=== PATIENT | female | born 1935 | race Caucasian/White ===

== ENCOUNTER 2016-08-03 21:04 | Inpatient (IN) | payer MEDICARE, OTHER ==
[~2016-08-03] VITALS: Ht 154.9 cm; Wt 46.3 kg
[~2016-08-03 21:04] MED LIST: /DULO30CA OR; ACET65TA OR; ADDE10CA3 PO; ALEVE PO; ASPI325T OR; CETI5TAB2 OR; CLIMARA TOP; CLIN300C OR; COQ-10 PO; DETR4CAP OR; FERR325T OR; FISH500C OR; GINKGO BILOBA PO; HEPARIN IV; LEVOFLOXACIN IV; NORCO PO; OMEP20TA7 OR; RED YEAST RICE PO; RESTASIS OU; SALINE FLUSHES IV; VICO5TAB OR; VITA C PO; VITAMIN D PO
[2016-08-03 21:38] LABS: VENOUS BASE EXCESS 2.7 (-2.0-2.0); VENOUS O2 SATURATION 81.8 % (60.0-80.0); VENOUS PARTIAL PRESSURE CO2 41.2 mmHg (38.0-50.0); VENOUS PARTIAL PRESSURE O2 46.7 mmHg (30.0-50.0); VENOUS STANDARD HCO3 26.6 MEQ/L; VENOUS TOTAL CO2 28.4 MEQ/L (24.0-28.0)
[2016-08-03 21:46] LABS: BASO % 0.2 % (0.0-1.0); EOS # 0.1 K/mm3 (0.0-0.50); EOS % 1.4 % (0.0-3.0); LARGE UNSTAINED CELL # 0.1 K/mm3 (0.0-0.4); LARGE UNSTAINED CELL % 1.6 % (0.0-4.0); LYMPH # 1.7 K/mm3 (1.5-4.5); LYMPH % 22.1 % (24.0-44.0); MEAN CORPUSCULAR HEMOGLOBIN 27.4 pg (27.0-33.0); MEAN CORPUSCULAR VOLUME 85.7 fl (80.0-96.0); MONO # 0.7 K/mm3 (0.0-0.8); MONO % 8.5 % (0.0-5.0); NEUTROPHILS # 5.2 K/mm3 (1.8-7.7); NEUTROPHILS % 66.2 % (36.0-66.0); PLATELET COUNT, AUTOMATED 228 k/mm3 (150-450); RED CELL DISTRIBUTION WIDTH 14.8 % (11.5-14.5); WHITE BLOOD COUNT 7.9 K/mm3 (4.0-10.0)
[2016-08-03] MEDS ORDERED: ATOR40TA PO (21:47)
[2016-08-03] MEDS ORDERED: BUPR150T3 PO (21:47)
[2016-08-03 22:06] LABS: ALBUMIN 3.4 GM/DL (3.2-5.2); ALBUMIN/GLOBULIN RATIO 0.94 (1.00-1.93); ALKALINE PHOSPHATASE 91 U/L (45-117); ANION GAP 7 MEQ/L (8-16); AST/SGOT 33 U/L (15-37); BILIRUBIN,DIRECT 0.1 MG/DL (0.0-0.2); BILIRUBIN,TOTAL 0.4 MG/DL (0.2-1.0); BLOOD UREA NITROGEN 16 MG/DL (7-18); CALCIUM LEVEL 8.3 MG/DL (8.8-10.2); CARBON DIOXIDE LEVEL 31 MEQ/L (21-32); CHLORIDE LEVEL 104 MEQ/L (98-107); CREATININE FOR GFR 0.53 MG/DL (0.55-1.02); GLOMERULAR FILTRATION RATE > 60.0 (>32); GLUCOSE, FASTING 85 MG/DL (83-110); POTASSIUM SERUM 3.6 MEQ/L (3.5-5.1); SODIUM LEVEL 142 MEQ/L (136-145)
[2016-08-03 22:12] LABS: ALT/SGPT 40 U/L (12-78)
--- NOTE | 2016-08-03 22:20 | REPUSA ---
CT of the head Clinical history: altered mental status. Protocol: Multiple axial CT images obtained with 5 mm slice thickness were obtained through the head without administration of contrast. Comparison: None. Findings: The ventricles and sulci are symmetric but prominent in size bilaterally. There are periven tricular areas of low attenuation throughout the deep white matter. There is no evidence of acute hem orrhage or infarct. There is no midline shift, mass effect, or extra-axial fluid collection. The osse ous structures are unremarkable. The visualized paranasal sinuses and mastoid air cells are clear. Impression: No acute hemorrhage or infarct. 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
[2016-08-03 22:30] LABS: METHADONE URINE NEGATIVE (NEGATIVE)
[2016-08-03] MEDS: NS 1,000 ML IV SCH (23:56)
[2016-08-04] MEDS ORDERED: ONDANSETRON 4 MG TAB (S0181) PO PRN
[2016-08-04] MEDS ORDERED: ONDANSETRON 4MG/2ML VIAL (J2405) IV PRN
[2016-08-04] MEDS ORDERED: FISH500C PO (00:31)
[2016-08-04] MEDS ORDERED: ADDE30CA PO (00:31)
[2016-08-04] MEDS ORDERED: OMEP20CA3 PO (00:31)
[2016-08-04] MEDS ORDERED: CETI10TA PO (00:31)
[2016-08-04] MEDS ORDERED: GINK120T2 PO (00:31)
[2016-08-04] MEDS ORDERED: DULO1CAP2 PO (00:31)
[2016-08-04] MEDS ORDERED: FERR325T PO (00:31)
[2016-08-04] MEDS ORDERED: VITA100066 PO (00:35)
[2016-08-04] MEDS ORDERED: OXYB10TA PO (00:35)
[2016-08-04] MEDS ORDERED: REST0.05 OU (00:35)
[2016-08-04] MEDS ORDERED: VITA500T88 PO (00:35)
[2016-08-04] MEDS ORDERED: RED1CAP5 PO (00:35)
[2016-08-04] MEDS ORDERED: CO Q100C10 PO (00:35)
[2016-08-04] MEDS ORDERED: ASPI81TA7 PO (00:36)
[2016-08-04 02:12] VITALS: BP 140/82
[2016-08-04] MEDS: NS 1,000 ML IV SCH ×2 (02:30→13:48)
--- NOTE | 2016-08-04 03:12 | HPEPDOC ---
Medical History and Physical Date of Admission August 04, 2016 at 00:36 History and Physical HISTORY AND PHYSICAL Date of admission: 08/04/2016 PCP: Dr. Joaquin Chief complaint: I just don't feel well HPI: 80-year-old female with history of CVA, hyperlipidemia, chronic anemia, depression who was brought to the emergency department by her neighbor. The patient evidently lives in the [facility] alone, and her and daughter live in [place]. The had been unable to reach his by phone for a couple days, so he called the neighbor and asked her to go check on her. The neighbor last saw the patient on , and at that time the patient seemed to be her normal self. When the neighbor arrived to the house, she found the patient curled up in bed and appeared to be very chilled. The patient told the neighbor that she was not feeling well and hadn't been able to get out of bed, and thus had not eaten or drinking anything, for an entire day. Workup was relatively unremarkable in the emergency department other than a hemoglobin of 9.6. The patient denies any falls, and states that she thinks she was doing well until Friday. She is unable to identify any specific complaints, but rather just says that she is exhausted. When the emergency department attempted to get her up to ambulate, she was too weak to do so. Past medical history: History of CVA, hyperlipidemia, chronic anemia, depression Past surgical history: Tonsillectomy and adenoidectomy, appendectomy Family history: The patient denies any specific medical problems in her family, she specifically denies hypertension or heart disease Social history: The patient currently lives alone in the [facility]. Her lives in an assisted living facility in [place], and her daughter also lives in [place]. The patient quit smoking approximately 30 years ago, she states she has not had any alcoholic drinks in at least one year. Prior to that , she only had very occasional alcoholic drinks. Allergies: Codeine, latex, penicillins, sulfa, tetracycline Review of systems: General: Positive for chills, negative for fever Eyes: Negative for vision changes and ocular discharge ENT: Negative for sore throat and nose bleed Cardiovascular: Negative for chest pain and palpitations Respiratory: Positive for cough, negative for shortness of breath GI: Negative for nausea, vomiting, diarrhea, constipation Musculoskeletal: Negative for neck and back pain Skin: Negative for rash Neuro: Negative for headache, dizziness, numbness, tingling Psych: Positive for depression. The patient states that she follows with a psychiatrist by the name of Dr. Wells once a month, as well as a clinical psychologist every 2 weeks. She denies any current thoughts of harming herself, but she states that she has struggled with these thoughts in the past, even as recently as one month ago Endocrine: Negative for polyuria : Negative for dysuria Heme: Negative for bruising and bleeding Home meds: See below Physical exam: Vital signs: Vital Sign - Last 24 Hours 08/03/16 08/03/16 08/03/16 08/03/16 21:31 21:39 22:04 22:19 Temp 98.8 Pulse 78 80 Resp 16 B/P (MAP) 159/72 (101) Pulse Ox 94 97 O2 Delivery Room Air Room Air 08/03/16 08/03/16 08/03/16 08/03/16 22:34 22:49 23:04 23:19 Pulse 82 82 80 82 Pulse Ox 91 92 98 97 08/03/16 08/03/16 08/04/16 08/04/16 23:34 23:49 00:04 00:19 Pulse 82 84 88 86 Pulse Ox 97 97 95 95 08/04/16 08/04/16 08/04/16 08/04/16 00:34 00:49 01:04 01:19 Pulse 88 88 88 86 Pulse Ox 98 98 98 98 Gen.: awake, alert, no acute distress Eyes: Extraocular movements intact, normal sclera ENT: Dry mucous membranes Cardiovascular: RRR, no murmurs rubs or gallops Lungs: clear to auscultation bilaterally, no rales, rhonchi, or wheeze Abdomen: Soft, NT/ND, normal BS Musculoskeletal: normal range of motion Extremities: No peripheral edema Neuro: alert and oriented 3, normal speech, no focal deficits Psych: Normal mood with congruent affect Labs and radiology: See below CMP, ABG, lactate, ammonia, troponin, TSH, urine drug screen, alcohol level are all unremarkable UA shows only 1+ blood Urine cultures and blood cultures are pending CT of the head does not show any concerns for acute findings CBC is remarkable for hemoglobin of 9.6 Assessment and plan: 80-year-old female with history of CVA, hyperlipidemia, chronic anemia, depression who was brought to the emergency department by her neighbor for extreme global weakness, inability to ambulate, and inability to get out of bed for the last day. 1. Global weakness, inability to ambulate and get out of bed for the last day: The patient has no specific complaints, and a very thorough workup is rather unrevealing. We will follow-up the patient's urine cultures, but her UA is not indicative of an infection. Given that she has been unable to get out of bed or eat or drink for an entire day, I will give her gentle IV fluids. We will also check a flu screen. I am concerned that the patient lives alone and that her nearest family is in [place]. We will have to work closely with the social workers to arrange a safe living situation. We will also have physical therapy evaluate the patient. 2. Chronic anemia: The patient states she knows she has anemia, but she is unsure what her hemoglobin usually is. She denies any blood in her stool or dark black stool. We will check iron studies as well as B12 and folate. We will continue her on home iron pills. We will recheck her hemoglobin the morning. 3. Depression: This appears to be very significant. The patient states that she does follow with the psychologist every other week and a psychiatrist once a month. She denies current suicidal ideations, but reports that this has been a struggle even as recently as one month ago. We will continue her on her home Wellbutrin and Cymbalta. She takes Adderall at home but we do not have that on formulary, so we will hold that at this time. 4. Hyperlipidemia: Given the patient's extreme global weakness, we will hold her statin. 5. History of CVA: We'll continue the patient's home aspirin. As mentioned above , given her weakness, we will hold her statin. DVT prophylaxis: SCDs Dispo: place in observation on the service of Dr. Au CODE STATUS: DNR/DNI Vital Signs Vital Signs Date Time Temp Pulse Resp B/P (MAP) Pulse Ox O2 Delivery O2 Flow Rate FiO2 08/04/16 01:19 86 98 08/03/16 22:04 08/03/16 21:39 Room Air 08/03/16 21:31 98.8 16 Laboratory Data Labs 24H Laboratory Tests 2 08/03/16 21:26: White Blood Count 7.9, Red Blood Count 3.52L, Hemoglobin 9.6L, Hematocrit 30.2L , Mean Corpuscular Volume 85.7, Mean Corpuscular Hemoglobin 27.4, Mean Corpuscular Hemoglobin Concent 32.0, Red Cell Distribution Width 14.8H, Platelet Count 228, Neutrophils (%) (Auto) 66.2H, Lymphocytes (%) (Auto) 22.1L, Monocytes (%) (Auto) 8.5H, Eosinophils (%) (Auto) 1.4, Basophils (%) (Auto) 0.2 , Neutrophils # (Auto) 5.2, Lymphocytes # (Auto) 1.7, Monocytes # (Auto) 0.7, Eosinophils # (Auto) 0.1, Basophils # (Auto) 0.0, Large Unclassified Cells % 1.6 , Large Unclassified Cells # 0.1, Blood Gas Bicarbonate Standard 26.6, Venous Blood pH 7.437H, Venous Blood Partial Pressure CO2 41.2, Venous Blood Partial Pressure O2 46.7, Venous Blood Total Carbon Dioxide 28.4H, Venous Blood HCO3 27.2H, Venous Blood Oxygen Saturation 81.8H, Venous Blood Base Excess 2.7H, Anion Gap 7L, Glomerular Filtration Rate > 60.0, Lactic Acid Level 1.1, Calcium Level 8.3L, Aspartate Amino Transf (AST/SGOT) 33, Alanine Aminotransferase (ALT/ SGPT) 40, Alkaline Phosphatase 91, Total Bilirubin 0.4, Direct Bilirubin 0.1, Ammonia 16, Total Creatine Kinase 152, Creatine Kinase MB 3.6, Creatine Kinase MB Relative Index 2.36, Troponin I < 0.02, Total Protein 7.0, Albumin 3.4, Albumin/Globulin Ratio 0.94L, Thyroid Stimulating Hormone (TSH) 0.811, Ethyl Alcohol Level < 0.003 08/03/16 21:43: Urine Appearance CLEAR, Urine Color STRAW, Urine pH 7.0, Urine Specific [place] 1.010, Urine Protein NEGATIVE, Urine Glucose (UA) NEGATIVE, Urine Ketones NEGATIVE, Urine Urobilinogen 0.2, Urine Bilirubin NEGATIVE, Urine Leukocyte Esterase NEGATIVE, Urine Blood 1+H, Urine Nitrite NEGATIVE, Urine WBC (Auto) 0, Urine RBC (Auto) 0, Urine Hyaline Casts (Auto) 0, Urine Bacteria (Auto) NEGATIVE , Urine Squamous Epithelial Cells 0, Urine Mucus (Auto) SMALL, Urine Sperm (Auto ) , Urine Amphetamines Screen NEGATIVE, Urine Benzodiazepines Screen NEGATIVE, Urine Opiates Screen NEGATIVE, Urine Methadone Screen NEGATIVE, Urine Barbiturates Screen NEGATIVE, Urine Phencyclidine Screen NEGATIVE, Urine Cocaine Metabolite Screen NEGATIVE, Urine Cannabinoids Screen NEGATIVE 08/03/16 22:00: Bedside Glucose ([facility]) 91 CBC/BMP Laboratory Tests 08/03/16 21:26 Red Blood Count 3.52 L, Mean Corpuscular Volume 85.7, Mean Corpuscular Hemoglobin 27.4, Mean Corpuscular Hemoglobin Concent 32.0, Red Cell Distribution Width 14.8 H, Neutrophils (%) (Auto) 66.2 H, Lymphocytes (%) (Auto ) 22.1 L, Monocytes (%) (Auto) 8.5 H, Eosinophils (%) (Auto) 1.4, Basophils (%) (Auto) 0.2, Neutrophils # (Auto) 5.2, Lymphocytes # (Auto) 1.7, Monocytes # ( Auto) 0.7, Eosinophils # (Auto) 0.1, Basophils # (Auto) 0.0 Microbiology Microbiology 08/03/16 Blood Culture, Received Pending 08/03/16 Blood Culture, Received Pending 08/04/16 Influenza Virus Type A Antigen - Final, Complete 08/04/16 Influenza Virus Type B Antigen - Final, Complete 08/03/16 Urine Culture, Received Pending Home Medications Scheduled (Red Yeast Rice) 300 Mg Cap, 300 MG PO DAILY (Restasis) 0.05 % Emu, 0.05 % OU BID Amphetamine/Dextroamphetamine (Adderall Xr 30 mg) 1 Cap Cap, 1 CAP PO DAILY Ascorbic Acid (Vitamin C) 500 Mg Tab, 500 MG PO DAILY Aspirin (Aspirin) 81 Mg Tab, 81 MG PO DAILY Atorvastatin Calcium (Atorvastatin Calcium) 40 Mg Tab, 40 MG PO DAILY Bupropion Hcl (Bupropion HCl Xl) 150 Mg Tab, 150 MG PO DAILY Cetirizine HCl (Cetirizine HCl) 10 Mg Tab, 10 MG PO DAILY Cholecalciferol (Vitamin D) 1,000 Unit Tab, 1,000 UNIT PO DAILY Duloxetine Hcl (Duloxetine HCl) 30 Mg Cap, 30 MG PO BID Ferrous Sulfate (Ferrous Sulfate) 325 Mg Tab, 325 MG PO BID Fish Oil (Fish Oil) 500 Mg Cap, 500 MG PO DAILY Ginkgo Biloba Extract (Ginkgo Biloba) 120 Mg Tab, 120 MG PO DAILY Omeprazole (Omeprazole) 20 Mg Cap, 20 MG PO DAILY Oxybutynin Chloride (Oxybutynin Chloride ER) 10 Mg Tab, 10 MG PO DAILY Miscellaneous Medications (Co Q 10) 100 Mg Cap, 100 MG PO Allergies Coded Allergies: Codeine (Verified Allergy, Unknown, 08/04/16) Latex (Verified Allergy, Unknown, 08/04/16) Penicillins (Verified Allergy, Unknown, HIVES, 08/04/16) Penicillins Cross Reactors (Verified Allergy, Unknown, HIVES, 08/04/16) Sulfa Drugs (Verified Allergy, Unknown, 08/04/16) Sulfa Drugs Cross Reactors (Verified Allergy, Unknown, 08/04/16) Tetracycline (Verified Allergy, Unknown, 08/04/16) ALEXI LEWIS August 04, 2016 03:12
[2016-08-04 05:58] LABS: BASO % 0.2 % (0.0-1.0); EOS # 0.1 K/mm3 (0.0-0.50); LARGE UNSTAINED CELL # 0.1 K/mm3 (0.0-0.4); LARGE UNSTAINED CELL % 1.2 % (0.0-4.0); LYMPH # 1.6 K/mm3 (1.5-4.5); LYMPH % 19.7 % (24.0-44.0); MEAN CORPUSCULAR HEMOGLOBIN 27.5 pg (27.0-33.0); MEAN CORPUSCULAR VOLUME 83.4 fl (80.0-96.0); MONO # 0.7 K/mm3 (0.0-0.8); NEUTROPHILS # 5.2 K/mm3 (1.8-7.7); NEUTROPHILS % 68.8 % (36.0-66.0); PLATELET COUNT, AUTOMATED 216 k/mm3 (150-450); WHITE BLOOD COUNT 7.5 K/mm3 (4.0-10.0)
[2016-08-04 06:00] VITALS: BP 159/77
[2016-08-04 06:24] LABS: ALBUMIN 3.2 GM/DL (3.2-5.2); ALBUMIN/GLOBULIN RATIO 1.07 (1.00-1.93); ALKALINE PHOSPHATASE 87 U/L (45-117); ALT/SGPT 34 U/L (12-78); ANION GAP 7 MEQ/L (8-16); AST/SGOT 26 U/L (15-37); BILIRUBIN,TOTAL 0.6 MG/DL (0.2-1.0); BLOOD UREA NITROGEN 10 MG/DL (7-18); CALCIUM LEVEL 8.3 MG/DL (8.8-10.2); CARBON DIOXIDE LEVEL 29 MEQ/L (21-32); CHLORIDE LEVEL 105 MEQ/L (98-107); CREATININE FOR GFR 0.51 MG/DL (0.55-1.02); GLOMERULAR FILTRATION RATE > 60.0 (>32); GLUCOSE, FASTING 102 MG/DL (83-110); MAGNESIUM LEVEL 1.8 MG/DL (1.8-2.4); PERCENT SATURATION 8.6 % (13.2-37.4); POTASSIUM SERUM 3.4 MEQ/L (3.5-5.1); SODIUM LEVEL 141 MEQ/L (136-145); TOTAL IRON BINDING CAPACITY 421 UG/DL (250-450); TOTAL PROTEIN 6.2 GM/DL (6.4-8.2)
[2016-08-04] MEDS ORDERED: POTASSIUM CHLORIDE 10 MEQ SR TABLET PO ONE (08:00)
[2016-08-04] MEDS: OMEPRAZOLE 20 MG CAP PO SCH (08:43)
[2016-08-04] MEDS: DULoxetine 30 MG CAP (CYMBALTA) PO SCH ×2 (08:44→21:27)
[2016-08-04] MEDS: oxyBUTYnin *DITROPAN XL* 5 MG TABCR PO SCH (08:44)
[2016-08-04] MEDS: buPROPion **XL** TABLET 150MG (WELLBUTRIN XL) PO SCH (08:44)
[2016-08-04] MEDS: VITAMIN D 1,000 INTERNATIONAL UNITS TABLET PO SCH (08:44)
[2016-08-04] MEDS: FERROUS SULFATE 325MG TAB PO SCH ×2 (08:44→21:27)
[2016-08-04] MEDS: CETIRIZINE (ZyrTEC) 10 MG TAB PO SCH (08:44)
[2016-08-04] MEDS: ASPIRIN 81 MG ENTERIC TAB PO SCH (08:44)
--- NOTE | 2016-08-04 10:57 | REP ---
CHEST, TWO VIEWS: No comparison. Two views of the chest are performed. There is mild cardiomegaly. I see no evidence of acute infiltrate. Two small nodular opacities are seen in the left lung base in the retrocardiac region. These appear fairly dense and may represent calcified granulomas, the larger measuring 7 mm in diameter. A similar density is seen in the right lung base. There are degenerative changes of the spine. There are calcifications of the thoracic aorta. IMPRESSION: No evidence of acute infiltrate. Mild cardiomegaly. Two subcentimeter nodular densities in the left base and one in the right base may represent calcified granulomas. Signed by Flash Fajardo MD 08/04/2016 07:54 P
[2016-08-04] MEDS: ENOXAPARIN 30 MG/0.3 ML SYR (J1650) SC SCH (11:36)
[2016-08-04 14:00] VITALS: BP 127/71
--- NOTE | 2016-08-04 14:01 | REP ---
Left lower extremity Duplex Doppler venous ultrasound: Real time compression and duplex Doppler interrogation of the left lower extremity deep venous system is performed. The left common femoral, superficial femoral and popliteal veins are fully compressible with transducer pressure and demonstrate normal spontaneous and phasic flow, without evidence of deep venous thrombosis. Impression: No evidence of deep venous thrombosis of the left lower extremity femoral popliteal venous system. Signed by Flash Fajardo MD 08/04/2016 01:53 P
--- NOTE | 2016-08-04 14:39 | REP ---
LEFT ANKLE, FOUR VIEWS: There is no evidence of an acute fracture, dislocation or intrinsic bone disease. The ankle mortise is anatomic. IMPRESSION: No fracture or dislocation. Signed by Flash Fajardo MD 08/04/2016 07:58 P
--- NOTE | 2016-08-04 14:40 | REP ---
LEFT LOWER LEG, AP AND LATERAL: There is no evidence of an acute fracture, dislocation or intrinsic bone disease. IMPRESSION: No fracture or dislocation. Signed by Flash Fajardo MD 08/04/2016 07:58 P
--- NOTE | 2016-08-04 16:01 | IPN ---
DATE: 08/04/2016 SUBJECTIVE: Patient seen and examined. Admitted overnight. No acute events. Reported tired and fatigued. Denies any fever, chills, chest pain, pressure or discomfort. VITAL SIGNS: Temperature 99.2, pulse 91, respirations 18, blood pressure 127/71, pulse oximetry 100% on room air. LABORATORY DATA: WBC 7.5, hemoglobin and hematocrit 9 over 27.2, platelets 216. Chemistry: Sodium 141, potassium 3.4, chloride 105, bicarbonate 29, BUN 10, creatinine 0.5. IMAGING: Ultrasound Doppler negative for deep venous thrombosis (DVT). CT negative for infarct or hemorrhage. PHYSICAL EXAMINATION: GENERAL: The patient pale, in no acute distress. Awake. HEENT: Normocephalic, atraumatic. Dry mucous membranes. CARDIAC: Regular rate and rhythm. Normal S1, S2. PULMONARY: Bilateral clear to auscultation. No rales, rhonchi or wheezing. ABDOMEN: Soft, nontender, nondistended. Positive bowel sounds. EXTREMITIES: No edema bilateral lower extremities. Left lower extremity mildly tender to palpation. ASSESSMENT AND PLAN: This is an 80-year-old female with underlying medical history of cerebrovascular accident (CVA), dyslipidemia, chronic anemia, depression, who was brought in by the emergency department by her neighbor for extreme global weakness, inability to ambulate, and inability to get out of bed for the last day also. 1. Global weakness, inability to ambulate and get out of bed. Nonspecific complaint. Infectious cause explored. Influenza negative. Blood cultures, urine culture sent. Urinalysis is negative. X-ray negative. CT head negative. Ultrasound Doppler negative for deep venous thrombosis (DVT). Intravenous (IV) fluids. The patient lives alone with the nearest family in [place]. Patient and family services (PFS) consulted for safe living situation. Physical therapy. 2. Left lower extremity pain. Ultrasound Doppler negative. X-rays negative. 3. Chronic anemia. Patient known to have anemia. Followup hemoglobin and hematocrit. Anemia workup was sent. Continue to monitor. No need for transfusion at this time. 4. Depression. The patient followup with psychiatrist and psychologist. Denies any recent suicidal ideation, but reported she has been in struggle as recent as one month ago. Continue current medications, Wellbutrin and Cymbalta, Adderall at home, not available. 5. Dyslipidemia. Hold statin given patient with global weakness. 6. Cerebrovascular accident (CVA) history. Continue aspirin mentioned above. Holding statin given weakness. 7. Deep venous thrombosis (DVT) prophylaxis. Lovenox subcutaneous. CODE STATUS: DO NOT RESUSCITATE/DO NOT INTUBATE (DNR/DNI). DISPOSITION PLANNING: Pending PFS, clinical improvement.
[2016-08-04 22:00] VITALS: BP 140/62
[2016-08-04] MEDS: ACETAMINOPHEN TAB 650MG DOSE (2X325MG) PO PRN (22:10)
[2016-08-05] MEDS: NS 1,000 ML IV SCH (02:23)
[2016-08-05 05:55] LABS: BASO % 0.2 % (0.0-1.0); EOS # 0.1 K/mm3 (0.0-0.50); EOS % 1.6 % (0.0-3.0); LARGE UNSTAINED CELL # 0.2 K/mm3 (0.0-0.4); LARGE UNSTAINED CELL % 1.9 % (0.0-4.0); LYMPH # 1.7 K/mm3 (1.5-4.5); LYMPH % 18.2 % (24.0-44.0); MEAN CORPUSCULAR HEMOGLOBIN 27.1 pg (27.0-33.0); MEAN CORPUSCULAR HGB CONC 31.2 g/dl (32.0-36.5); MEAN CORPUSCULAR VOLUME 86.7 fl (80.0-96.0); MONO # 0.7 K/mm3 (0.0-0.8); MONO % 7.4 % (0.0-5.0); NEUTROPHILS # 6.4 K/mm3 (1.8-7.7); NEUTROPHILS % 70.7 % (36.0-66.0); PLATELET COUNT, AUTOMATED 198 k/mm3 (150-450); RED CELL DISTRIBUTION WIDTH 14.9 % (11.5-14.5); WHITE BLOOD COUNT 9.1 K/mm3 (4.0-10.0)
[2016-08-05 06:00] VITALS: BP 123/58
[2016-08-05 06:22] LABS: ALBUMIN 2.6 GM/DL (3.2-5.2); ALBUMIN/GLOBULIN RATIO 0.79 (1.00-1.93); ALKALINE PHOSPHATASE 83 U/L (45-117); ALT/SGPT 28 U/L (12-78); ANION GAP 6 MEQ/L (8-16); AST/SGOT 21 U/L (15-37); BILIRUBIN,TOTAL 0.3 MG/DL (0.2-1.0); BLOOD UREA NITROGEN 9 MG/DL (7-18); CARBON DIOXIDE LEVEL 28 MEQ/L (21-32); CHLORIDE LEVEL 108 MEQ/L (98-107); CREATININE FOR GFR 0.57 MG/DL (0.55-1.02); GLOMERULAR FILTRATION RATE > 60.0 (>32); GLUCOSE, FASTING 122 MG/DL (83-110); MAGNESIUM LEVEL 1.7 MG/DL (1.8-2.4); POTASSIUM SERUM 3.8 MEQ/L (3.5-5.1); SODIUM LEVEL 142 MEQ/L (136-145); TOTAL PROTEIN 5.9 GM/DL (6.4-8.2)
[2016-08-05] MEDS ORDERED: MAG SULF 1GM/100ML (MAG RUN) 1 GM in APPROPRIATE DILUENT 1 EA IV ONE (08:00)
[2016-08-05] MEDS: buPROPion **XL** TABLET 150MG (WELLBUTRIN XL) PO SCH (08:56)
[2016-08-05] MEDS: FERROUS SULFATE 325MG TAB PO SCH (08:56)
[2016-08-05] MEDS: ENOXAPARIN 30 MG/0.3 ML SYR (J1650) SC SCH (08:56)
[2016-08-05] MEDS: OMEPRAZOLE 20 MG CAP PO SCH (08:56)
[2016-08-05] MEDS: ADDERALL 5 MG TAB PO SCH (08:56)
[2016-08-05] MEDS: ASPIRIN 81 MG ENTERIC TAB PO SCH (08:56)
[2016-08-05] MEDS: DULoxetine 30 MG CAP (CYMBALTA) PO SCH ×2 (08:56→20:07)
[2016-08-05] MEDS: oxyBUTYnin *DITROPAN XL* 5 MG TABCR PO SCH (08:56)
[2016-08-05] MEDS: VITAMIN D 1,000 INTERNATIONAL UNITS TABLET PO SCH (08:56)
[2016-08-05] MEDS: CETIRIZINE (ZyrTEC) 10 MG TAB PO SCH (08:57)
[2016-08-05 10:19] LABS: VITAMIN B12 LEVEL 636 PG/ML
[2016-08-05 10:20] LABS: FOLATE > 24.0 NG/ML
[2016-08-05] MEDS: SENOKOT S TAB PO SCH ×2 (13:10→20:07)
[2016-08-05] MEDS: ASCORBIC ACID 500 MG TAB PO SCH ×2 (13:10→20:07)
[2016-08-05 14:00] VITALS: BP 144/67
--- NOTE | 2016-08-05 14:11 | REP ---
Clinical: Rule out osteomyelitis and fracture. Technique: AP, lateral, bilateral oblique views of the right hand. Comparison: None. Findings: Marked, advanced osteoarthritic degenerative changes are appreciated. Findings include chronic destruction of the trapezoid and trapezium along with cortical irregularity and heterogeneity involving the first and second carpometacarpal joints, joint space narrowing, subchondral sclerosis/heterogeneity and marginal osteophyte formation involving the interphalangeal joints, scattered areas of chondrocalcinosis as well as chronic-appearing subluxation and impaction at the fourth proximal interphalangeal joint. Acute fracture at the fourth PIP joint cannot be excluded and requires correlation. Osteomyelitis cannot be excluded by radiographic evaluation given the extensive degenerative changes. Impression: Extensive osteoarthritic degenerative changes as described above. Findings require correlation. Osteomyelitis cannot be excluded by radiographic evaluation in light of the extensive degenerative changes. Signed by Grant Greenberg MD 08/05/2016 02:03 P
[2016-08-05] MEDS: CEFTAROLINE FOSAMIL 600 MG in D5W 50 ML IV SCH (19:32)
[2016-08-05] MEDS: ACETAMINOPHEN TAB 650MG DOSE (2X325MG) PO PRN (20:08)
--- NOTE | 2016-08-05 20:46 | ECGEPIP ---
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
[2016-08-05 22:00] VITALS: BP 134/66
[2016-08-06 06:00] VITALS: BP 141/73
[2016-08-06 07:24] LABS: BASO % 0.2 % (0.0-1.0); EOS # 0.1 K/mm3 (0.0-0.50); EOS % 1.6 % (0.0-3.0); LARGE UNSTAINED CELL # 0.1 K/mm3 (0.0-0.4); LARGE UNSTAINED CELL % 1.6 % (0.0-4.0); LYMPH # 1.6 K/mm3 (1.5-4.5); LYMPH % 18.4 % (24.0-44.0); MEAN CORPUSCULAR HGB CONC 32.1 g/dl (32.0-36.5); MEAN CORPUSCULAR VOLUME 84.1 fl (80.0-96.0); MONO # 0.7 K/mm3 (0.0-0.8); MONO % 8.4 % (0.0-5.0); NEUTROPHILS # 5.6 K/mm3 (1.8-7.7); NEUTROPHILS % 69.8 % (36.0-66.0); PLATELET COUNT, AUTOMATED 206 k/mm3 (150-450)
[2016-08-06 07:42] LABS: ALBUMIN 2.8 GM/DL (3.2-5.2); ALBUMIN/GLOBULIN RATIO 0.74 (1.00-1.93); ALKALINE PHOSPHATASE 82 U/L (45-117); ALT/SGPT 28 U/L (12-78); ANION GAP 5 MEQ/L (8-16); AST/SGOT 17 U/L (15-37); BILIRUBIN,TOTAL 0.4 MG/DL (0.2-1.0); BLOOD UREA NITROGEN 10 MG/DL (7-18); CALCIUM LEVEL 8.6 MG/DL (8.8-10.2); CARBON DIOXIDE LEVEL 31 MEQ/L (21-32); CHLORIDE LEVEL 102 MEQ/L (98-107); CREATININE FOR GFR 0.52 MG/DL (0.55-1.02); GLOMERULAR FILTRATION RATE > 60.0 (>32); GLUCOSE, FASTING 105 MG/DL (83-110); POTASSIUM SERUM 3.5 MEQ/L (3.5-5.1); SODIUM LEVEL 138 MEQ/L (136-145); TOTAL PROTEIN 6.6 GM/DL (6.4-8.2)
[2016-08-06] MEDS: CEFTAROLINE FOSAMIL 600 MG in D5W 50 ML IV SCH ×2 (08:47→20:00)
[2016-08-06] MEDS ORDERED: diphenhydrAMINE CREAM 30GM TOP SCH (09:00)
--- NOTE | 2016-08-06 10:00 | CR ---
DATE OF CONSULTATION: 08/06/2016 REASON FOR CONSULTATION: Right ring finger swelling. HISTORY: This is a pleasant 80-year-old female patient that was initially admitted on 08/04/2016 for generalized not feeling well. It was noted that she had swelling of her right ring finger. Also noted edema and redness around that finger so a consult to orthopedics was placed. Currently she is continuing to improve with her admission. She claims of itching sensation around that finger. She feels that possibly she was bit by a spider one or two days before the admission. She has noted similar symptoms in that hand before after a spider bite but she is not quite sure that she does note a small pin size what appears to be bite on the dorsum of the right ring finger just distal to the DIP joint. She denies fever. Denies particular injury to that finger. She has a known osteoarthritis of that hand, actually both, and she has known severe osteoarthritis of both hands. She does not remember any courses of having this much swelling or edema in that hand. She does feel though over the last few days is has improved immensly. She feels the swelling has went down. She is able to move it better. The redness has gone down. She is wondering about some topical Benadryl as that has helped before and it does itch and quite bothersome for her for the itching sensation in that ring finger. Examine today reveals an alert female patient. She is sitting up eating her breakfast when I come into the room. She appears to be in no acute distress. Exam of the right ring finger does reveal edema from the MCP joint to just proximal to the DIP joint. There is surrounding erythema but no streaking erythema. There is no tenderness in the palmar aspect of the hand. She is able to slightly flex and slightly extend the finger but she does say that she has had very little motion in that finger for quite some time. Passively when I flex and extend the DIP joint, it is not painful. There is very little motion at the PIP joint but there is no irritability with range of motion of the MCP joint on exam. There is brisk cap refill at the tip of the finger. There is no increased warmth to touch. There is a pin sized what appears to be a puncture type wound just distal to the DIP joint. It does note any discharge. X-rays reviewed and notable for severe end-stage degenerative changes of the PIP and DIP joint of the ring finger. There are also end-stage degenerative changes of the remaining fingers as well. I am not able to appreciate an acute fracture. There is degenerative subluxation of the PIP joint on exam but consistent with end-stage degenerative changes of the joint. PLAN: I think at this point, she has an MRI already planned for that right hand. I think that is appropriate next study to obtain and that has already been ordered. I would repeat the C-reactive protein and the sed rate to see if it is trending down or up. If her primary felt it was appropriate, we could try some topical Benadryl or even possibly oral Benadryl 25 mg to see if that may help out with her sensation of the itching in that finger. She will continue to elevate that finger. She can work on gentle range of motion but think elevation , and rest would be most helpful. We will re-evaluate the patient after the MRI has been completed but at this point, it is more likely to be chronic changes with subsequent possible secondary to a spider bite. So will hold final deposition until after the MRI has been completed. MARII
[2016-08-06] MEDS: ASCORBIC ACID 500 MG TAB PO SCH ×2 (10:05→20:35)
[2016-08-06] MEDS: ADDERALL 5 MG TAB PO SCH (10:05)
[2016-08-06] MEDS: SENOKOT S TAB PO SCH ×2 (10:05→20:35)
[2016-08-06] MEDS: FERROUS GLUCONATE 324 MG TAB PO SCH (10:05)
[2016-08-06] MEDS: CETIRIZINE (ZyrTEC) 10 MG TAB PO SCH (10:06)
[2016-08-06] MEDS: buPROPion **XL** TABLET 150MG (WELLBUTRIN XL) PO SCH (10:06)
[2016-08-06] MEDS: VITAMIN D 1,000 INTERNATIONAL UNITS TABLET PO SCH (10:06)
[2016-08-06] MEDS: DULoxetine 30 MG CAP (CYMBALTA) PO SCH ×2 (10:06→20:36)
[2016-08-06] MEDS: ASPIRIN 81 MG ENTERIC TAB PO SCH (10:06)
[2016-08-06] MEDS: OMEPRAZOLE 20 MG CAP PO SCH (10:06)
[2016-08-06] MEDS: oxyBUTYnin *DITROPAN XL* 5 MG TABCR PO SCH (10:06)
[2016-08-06] MEDS: ENOXAPARIN 30 MG/0.3 ML SYR (J1650) SC SCH (10:07)
[2016-08-06 11:25] LABS: ERYTHROCYTE SEDIMENTATION RATE 60 mm/hr (0-30)
[2016-08-06 14:00] VITALS: BP 127/63
[2016-08-06] MEDS: ATORVASTATIN 20 MG TAB PO SCH (14:40)
--- NOTE | 2016-08-06 18:50 | REPUSA ---
MRI of the right hand Clinical statement: swelling, infection, rule out osteomyelitis. Technique: Multiecho multiplanar MRI images of the right hand were obtained before and after adminis tration of intravenous gadolinium contrast. No comparison is available. Findings: There is severe focal soft tissue swelling surrounding the distal aspect of the proximal p halanx of the fourth digit. Significant edema and soft tissue inflammation is seen around the proxima l interphalangeal joint. At the site. There is a focal area of T1 hypointensity and T2 hyperintensity within the bone marrow in the distal aspect of the proximal phalanx. At the site, suspicious for foc al acute osteomyelitis. No evidence of soft tissue abscess is identified however. The other osseous structures appear unremarkable. The ligaments and tendons appear grossly intact. Impression: Findings are consistent with osteomyelitis of the distal aspect of the proximal phalanx of the fourth digit. Severe surrounding soft tissue swelling is suspicious for cellulitis. There is n o evidence of abscess at this time.
[2016-08-06] MEDS ORDERED: diphenhydrAMINE CREAM 30GM TOP PRN (21:00)
[2016-08-06 22:00] VITALS: BP 135/61
[2016-08-06 23:12] VITALS: BP 148/67
[2016-08-07 02:00] VITALS: BP 154/67
[2016-08-07 06:00] VITALS: BP 165/71
[2016-08-07 06:03] LABS: BASO % 0.1 % (0.0-1.0); EOS # 0.2 K/mm3 (0.0-0.50); LARGE UNSTAINED CELL # 0.2 K/mm3 (0.0-0.4); LARGE UNSTAINED CELL % 1.7 % (0.0-4.0); LYMPH # 1.9 K/mm3 (1.5-4.5); MEAN CORPUSCULAR HGB CONC 32.9 g/dl (32.0-36.5); MEAN CORPUSCULAR VOLUME 85.2 fl (80.0-96.0); MONO # 0.7 K/mm3 (0.0-0.8); MONO % 7.8 % (0.0-5.0); NEUTROPHILS # 6.2 K/mm3 (1.8-7.7); NEUTROPHILS % 67.4 % (36.0-66.0); PLATELET COUNT, AUTOMATED 206 k/mm3 (150-450); RED CELL DISTRIBUTION WIDTH 14.8 % (11.5-14.5); WHITE BLOOD COUNT 9.2 K/mm3 (4.0-10.0)
[2016-08-07 06:22] LABS: ALBUMIN 2.8 GM/DL (3.2-5.2); ALBUMIN/GLOBULIN RATIO 0.82 (1.00-1.93); ALKALINE PHOSPHATASE 84 U/L (45-117); ALT/SGPT 27 U/L (12-78); ANION GAP 8 MEQ/L (8-16); AST/SGOT 20 U/L (15-37); BILIRUBIN,TOTAL 0.3 MG/DL (0.2-1.0); BLOOD UREA NITROGEN 14 MG/DL (7-18); CALCIUM LEVEL 8.3 MG/DL (8.8-10.2); CARBON DIOXIDE LEVEL 31 MEQ/L (21-32); CHLORIDE LEVEL 99 MEQ/L (98-107); CREATININE FOR GFR 0.56 MG/DL (0.55-1.02); GLOMERULAR FILTRATION RATE > 60.0 (>32); GLUCOSE, FASTING 106 MG/DL (83-110); MAGNESIUM LEVEL 1.8 MG/DL (1.8-2.4); POTASSIUM SERUM 3.6 MEQ/L (3.5-5.1); SODIUM LEVEL 138 MEQ/L (136-145); TOTAL PROTEIN 6.2 GM/DL (6.4-8.2)
[2016-08-07] MEDS ORDERED: LevoFLOXacin IV 500 MG in APPROPRIATE DILUENT 1 EA IV SCH (07:00)
[2016-08-07 08:24] LABS: ERYTHROCYTE SEDIMENTATION RATE 65 mm/hr (0-30)
[2016-08-07 10:00] VITALS: BP 122/56
[2016-08-07] MEDS: ADDERALL 5 MG TAB PO SCH (10:19)
[2016-08-07] MEDS: ENOXAPARIN 30 MG/0.3 ML SYR (J1650) SC SCH (10:19)
[2016-08-07] MEDS: VITAMIN D 1,000 INTERNATIONAL UNITS TABLET PO SCH (10:20)
[2016-08-07] MEDS: buPROPion **XL** TABLET 150MG (WELLBUTRIN XL) PO SCH (10:20)
[2016-08-07] MEDS: OMEPRAZOLE 20 MG CAP PO SCH (10:20)
[2016-08-07] MEDS: oxyBUTYnin *DITROPAN XL* 5 MG TABCR PO SCH (10:20)
[2016-08-07] MEDS: SENOKOT S TAB PO SCH ×2 (10:20→20:28)
[2016-08-07] MEDS: DULoxetine 30 MG CAP (CYMBALTA) PO SCH ×2 (10:20→20:27)
[2016-08-07] MEDS: ASCORBIC ACID 500 MG TAB PO SCH ×2 (10:20→20:28)
[2016-08-07] MEDS: CETIRIZINE (ZyrTEC) 10 MG TAB PO SCH (10:21)
[2016-08-07] MEDS: ATORVASTATIN 20 MG TAB PO SCH (10:21)
[2016-08-07] MEDS: ASPIRIN 81 MG ENTERIC TAB PO SCH (10:21)
[2016-08-07] MEDS: FERROUS GLUCONATE 324 MG TAB PO SCH (10:21)
[2016-08-07 14:00] VITALS: BP 106/56
[2016-08-07] MEDS ORDERED: TUBERCULIN PPD 5 UNITS/0.1 ML ID ONE (15:00)
[2016-08-07 15:15] LABS: URIC ACID 2.5 MG/DL (2.6-6.0)
--- NOTE | 2016-08-07 17:23 | CR ---
DATE OF CONSULTATION: 08/07/2016 I was asked to consult by Dr. Das regarding possible osteomyelitis of right finger. HISTORY OF PRESENT ILLNESS: Mrs. Ponce is an 80-year-old pleasant female with past medical history significant for cerebrovascular accident (CVA), hyperlipidemia, anemia and depression. She was brought into the emergency room because she was not feeling well. She lives in [place] alone. Her lives in an assisted living in [place] because they both prefer different weather. Her could not get a hold of her for a couple days so he called a neighbor to go check on her. She has been in bed not feeling well and not eating. The patient was brought into the emergency room to be evaluated. She was noted to have mild anemia with a hemoglobin of 9.6, but she could not get up and walk. She denied having any nausea, vomiting, diarrhea, abdominal pain. She had some pain in her finger which was noted to be swollen. She stated that she thinks it is spiders that come out during this time of the year. She does complain of being fatigued. She denies history of gout but has severe osteoarthritis of the fingers. PAST MEDICAL HISTORY: Severe hyperlipidemia, chronic anemia, depression, CVA septic arthritis of the right knee after status post arthroscopy that required treatment with intravenous (IV) antibiotics in 2011. PAST SURGICAL HISTORY: Tonsillectomy, adenoidectomy, appendectomy. FAMILY HISTORY: No hypertension or heart disease, nothing relevant. SOCIAL HISTORY: She is a currently lives alone in [place] but she is moving to the [place]. Her lives in assisted living in [place]. Does not smoke or drink. She has a daughter in [place] and another daughter in [place]. ALLERGIES: Codeine, latex penicillin, sulfa, tetracycline. REVIEW OF SYSTEMS: She had some chills but no fever, except here in the hospital. She had a low grade of 100. She had no nausea, vomiting or diarrhea. No abdominal pain. No pain. No chest pain. She does complain of pain in her fingers. MEDICATIONS: - PPD was placed - levofloxacin 500 mg IV every 24 hours - She received today Benadryl cream - ferrous gluconate 325 mg daily - Adderall 30 mg daily - Senokot 1 tablet by mouth twice a day - vitamin C 500 mg by mouth twice a day - aspirin 81 mg daily - bupropion 150 mg by mouth daily - Zyrtec 10 mg by mouth daily - vitamin D 1000 units daily - Cymbalta 30 mg by mouth twice a day - omeprazole 20 mg by mouth daily - oxybutynin 10 mg daily - Lovenox 30 mg subcu daily - Tylenol as needed - Zofran as needed LABORATORY DATA: White count on admission was normal, currently 9.2, hemoglobin 8.7, hematocrit 26.5, platelets 206, 67% neutrophils, 21% lymphocytes, 7% monocytes. ESR has ranged between 56 and 65. Sodium 138, potassium 3.6, chloride 99, bicarb 31, BUN 14, creatinine 0.56, glucose 106, uric acid is low at 2.5, calcium 8.3, magnesium 1.8, bilirubin 0.3, AST 20, ALT 27, alk phos 87, CRP is between 4.2 and 4.8, total protein 6.2, albumin 2.8. Urine drug screen was negative. Alcohol level was negative. Urinalysis had +1 blood, negative nitrite, negative glucose esterase, blood cultures two sets were negative. Urine culture is negative. Influenza A and B was negative. IMAGING STUDIES: Head CT showed ventricle and sulci are symmetric but prominent sized bilaterally. Findings are consistent with age-related atrophy and chronic small vessel disease. Chest x-ray, no evidence of acute infiltrate, cardiomegaly and two small densities on the left base and right base probably calcified granulomas. Hand x-ray done on 08/05 shows extensive osteoarthritic degenerative changes osteomyelitis cannot be excluded. There is subluxation chondral calcinosis an infection of the 4th proximal interphalangeal joint. MRI was ordered on 08/05 at 05:00 p.m. and was read as findings consistent with osteomyelitis of the distal aspect of the proximal phalanx of the 4th digit. Severe surrounding soft tissue swelling is suspected. PHYSICAL EXAMINATION: GENERAL: On physical exam she is a pleasant healthy looking female in no acute distress. HEART: Normal S1-S2 with no murmurs, rubs or gallops appreciated. LUNGS: Clear, wheezes or rhonchi. ABDOMEN: Soft, nontender. No visceromegaly. BACK: No CVA tenderness. EXTREMITIES: No clubbing, cyanosis or edema. No calf tenderness. She has a pedicure. She has mild tenderness along the anterior wesley area. MUSCULOSKELETAL EXAM: No lumbosacral tenderness. All of her fingers are arthritic. Her right ring finger has an area swelling at the PIP joint quite swollen but she is able to move the joint. It is red. There is no cellulitis extending past the joint area. There is some subluxation of the joint first PIP. IMPRESSION: This is an 80-year-old female with no significant past medical history other than depression and CVA who lives alone pretty independent who was admitted not feeling well and was noted to have a swollen finger. I have reviewed the MRI and the x-rays with Dr. Arpit Shoemaker and he thinks that these are typical findings of tophaceous gout. 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 The patient had negative blood cultures. She does not look septic. There is no reason for her to have osteomyelitis of the finger, there is no trauma are open wound. PLAN: Discontinue IV Ceftaroline or Levaquin. Do not use antibiotics. The patient is at risk of C difficile with her advanced age. Start prednisone 20 mg by mouth daily. If there is no improvement then would consider aspirating the PIP joint to rule out other possible etiologies such as pseudogout or infectious although this is very unlikely.
[2016-08-07] MEDS: predniSONE 20 MG TAB PO SCH (17:43)
[2016-08-07 18:00] VITALS: BP 135/66
[2016-08-07 22:00] VITALS: BP 150/68
[2016-08-08 02:00] VITALS: BP 133/60
[2016-08-08 06:00] VITALS: BP 142/62
[2016-08-08 06:15] LABS: BASO % 0.1 % (0.0-1.0); EOS % 0.2 % (0.0-3.0); LARGE UNSTAINED CELL # 0.1 K/mm3 (0.0-0.4); LARGE UNSTAINED CELL % 0.6 % (0.0-4.0); LYMPH # 1.1 K/mm3 (1.5-4.5); LYMPH % 12.2 % (24.0-44.0); MEAN CORPUSCULAR HEMOGLOBIN 27.4 pg (27.0-33.0); MEAN CORPUSCULAR HGB CONC 32.6 g/dl (32.0-36.5); MONO # 0.5 K/mm3 (0.0-0.8); MONO % 5.3 % (0.0-5.0); NEUTROPHILS # 7.4 K/mm3 (1.8-7.7); NEUTROPHILS % 81.5 % (36.0-66.0); PLATELET COUNT, AUTOMATED 246 k/mm3 (150-450); RED CELL DISTRIBUTION WIDTH 14.8 % (11.5-14.5); WHITE BLOOD COUNT 9.1 K/mm3 (4.0-10.0)
[2016-08-08 06:37] LABS: ALBUMIN 2.9 GM/DL (3.2-5.2); ALBUMIN/GLOBULIN RATIO 0.73 (1.00-1.93); ALKALINE PHOSPHATASE 87 U/L (45-117); ALT/SGPT 29 U/L (12-78); ANION GAP 6 MEQ/L (8-16); AST/SGOT 19 U/L (15-37); BILIRUBIN,TOTAL 0.3 MG/DL (0.2-1.0); BLOOD UREA NITROGEN 22 MG/DL (7-18); CALCIUM LEVEL 9.1 MG/DL (8.8-10.2); CARBON DIOXIDE LEVEL 31 MEQ/L (21-32); CHLORIDE LEVEL 101 MEQ/L (98-107); CREATININE FOR GFR 0.56 MG/DL (0.55-1.02); GLOMERULAR FILTRATION RATE > 60.0 (>32); GLUCOSE, FASTING 118 MG/DL (83-110); MAGNESIUM LEVEL 2.2 MG/DL (1.8-2.4); POTASSIUM SERUM 3.9 MEQ/L (3.5-5.1); SODIUM LEVEL 138 MEQ/L (136-145); TOTAL PROTEIN 6.9 GM/DL (6.4-8.2)
--- NOTE | 2016-08-08 09:01 | IPN ---
DATE: 08/05/2016 SUBJECTIVE: Ms. Ponce is an 80-year-old female who was seen and examined at the bedside. The patient denies overnight issues. The patient denies chest pain orthopnea or paroxysmal nocturnal dyspnea. The patient also denies nausea, vomiting, diarrhea, constipation. However, the patient complained about the right hand pain mostly on the 4th digit. The patient expressed that she did not notice being bite by an insect or penetration of the skin. However, for the past 2 days, she has noticed that it has become more swollen and erythema. OBJECTIVE: VITAL SIGNS: Temperature 96.8, pulse 92, respiratory rate 16, blood pressure 123/58, pulse oximetry 98 on room air. Total intake from yesterday 2100 mL and total output 1500 mL. GENERAL: The patient was seen and the chart reviewed in no acute distress. The patient was awake, alert and oriented to time, place and person. HEENT: Normocephalic, atraumatic. Pupils equal, round, reactive to light. Oral mucosal is moist. NECK: Soft, supple. No lymphadenopathy. No thyromegaly. No jugular venous distention. HEART: Regular rate and rhythm. Normal S1, S2. No gallop or murmur. PULMONARY: Clear breath sounds. Bilaterally equal air movement. No rales, rhonchi or wheezing. ABDOMEN: Soft and nontender. Positive bowel sounds. No recurrence. EXTREMITIES: The patient has a mild erythema and swelling of the 4th digit of the right hand with mild tenderness to palpation. However, no drainage or bleeding was noted from the site. The patient has mild pitting edema in both lower extremities. LABORATORY DATA: White blood cells, 9.1, red blood cells 3.10, hemoglobin 8.4, hematocrit 26.9, MCV 86.7, MCH 27.1, MCHC 31.2, RDW 14.9, platelet count 198, neurophil percent 70.7, lymphocyte percent 18.2, monocyte percent 7.4, eosinophil percent 1.6, basophil percent 2.2, leukocyte percent 1.9. Sodium 142, potassium 3.8, chloride 108, carbon dioxide 28, anion gap 6, BUN 9, creatinine 0.57, glomerular filtration rate more than 60, fasting glucose 122, calcium 8, magnesium 1.7. Total bilirubin 0.3, AST 21, ALT 20, alkaline phosphatase 83. Total protein 5.9. Albumin 2.6. ASSESSMENT/PLAN: 1. Right upper extremity pain: At this point, I have ordered right hand x-ray and t he result is pending at this time to rule out a fracture or possible osteomyelitis. We will continue monitoring patient. Also we have ordered C-reactive protein. 2. Global weakness: Today, the patient expressed that she feels much better and we have ordered physical therapy. Previously, infectious causes were explored. Urine culture was negative. UA was negative. Blood cultures are negative as well as chest x-ray which shows no evidence of acute infiltration. The patient was on IV fluids, however, we have stopped IV fluids and the patient is tolerating oral intake well. We have consulted [facility] for safe living situation. The patient lives alone with family living in [place]. 3. Left lower extremity pain: Imaging studies were negative. The patient is ambulatory today. 4. Chronic anemia: The patient expressed that she has been having anemia for a long time. Today, the patient's hemoglobin and hematocrit are decreased compared to yesterday. This could be possibly secondary to IV fluids. We have stopped IV fluids. We will repeat the blood study. Anemia workup was sent which indicated low iron, however, the transferrin percent is pending. Transferrin percentage saturation was low. At this time, we will start the patient on iron by mouth. Will continue monitoring the patient for any abnormal symptoms. 5. Depression: The patient is following with psychiatric and psychologist. The patient denies any new symptoms. The patient also denies suicide ideations or plans to hurt herself or other people. We will continue the patient on current medications including Wellbutrin, Cymbalta, Adderall. 6. Dyslipidemia: The patient was on statin, however, we held this due to global weakness. The patient's liver function is normal today. We will hold this medication for today. 7. CVA history: The patient is on aspirin. However, will hold the aspirin due to global weakness. 8. Deep venous thrombosis prophylaxis: The patient is on Lovenox. 9. Gastroesophageal reflux disease: The patient is on omeprazole. My preceptor for this patient encounter was Dr. Luisana Au . The preceptor was physically present in the building during the encounter and was fully available. As needed, all aspects of the patient interview, examination, medical decision making process, and medical care plan development were reviewed and approved by the preceptor. The preceptor is aware and concurs with the plan as stated in the body of this note and will attest to such by his/her cosignature.
[2016-08-08 10:00] VITALS: BP 128/61
--- NOTE | 2016-08-08 10:35 | IPN ---
DATE: 08/06/2016 SUBJECTIVE: Ms. Ponce is an 80-year-old female who was seen and examined at the bedside. The patient denies chest pain, orthopnea or paroxysmal nocturnal dyspnea. The patient also denies vomiting, diarrhea or constipation. However, the patient continues to have complaints regarding her right 4th digit of the right hand. The patient expressed that she believes that the edema has decreased, however, she continues to have discomfort and pain. The patient expressed that she had this happen before and she used Benadryl cream, which helped. The patient has been seen by orthopedics today. OBJECTIVE: VITAL SIGNS: Temperature 98.8, pulse 81, respiratory rate 18, blood pressure 141/73, pulse oximetry 98% on room air. Total intake from yesterday 1800. Total output 300 mL. GENERAL APPEARANCE: The patient was sitting in a chair in no acute distress. The patient was awake, alert and oriented to time, place and person. HEENT: Normocephalic, atraumatic. Pupils equal, round, and reactive to light. Oral mucosal is moist. NECK: Soft, supple. No lymphadenopathy or thyromegaly. No jugular venous distention. HEART: Regular rate and rhythm. Normal S1, S2. PULMONARY: Clear breath sounds bilaterally. Good air movement. No rales, rhonchi or wheezing. ABDOMEN: Soft, nontender. Positive bowel sounds in all quadrants. EXTREMITIES: No lower extremity edema. +2 pulses in both lower extremities. The patient has tenderness to palpation of the left lower extremity due to chronic knee pain. The patient also has swelling and erythema of the right 4th digit of the hand with limited movement due to increase of pain. However, the patient has normal pulses in upper extremities. LABORATORY DATA: White blood cells 8, red blood cells 3.28, hemoglobin 8.9, hematocrit 27.6, MCV 84.1, MCH 27, SKILLED NURSING 32.1, RDW 15, platelet count 206, neutrophil percentage 69.8, lymphocyte percentage 18.4, monocyte percentage 8.4, basophil percentage 1.6, eosinophil percentage 0.2, leukocyte percentage 1.6. Sodium 138, potassium 3.5, chloride 102, carbon dioxide 31, iron gap 5, BUN 10, creatinine 0.52, glomerular filtration rate greater than 60, fasting glucose 105, calcium 8.6, magnesium 2. Total bilirubin 0.4, AST 17, ALT 28, alkaline phosphatase 82. C-reactive protein is pending. Total protein 6.6. Albumin 2.8. X-ray of the right hand showed excessive osteoarthritis and degenerative changes. Osteomyelitis cannot be excluded by radiographic evaluation in light of the extensive degenerative changes. ASSESSMENT/PLAN: 1. Right hand 4th digit swelling and erythema: Yesterday I have consulted orthopedics. Also I have ordered x-ray which could not exclude osteomyelitis. Therefore, I have ordered MRI of the hand. The result is pending at this time. Also I have ordered ESR yesterday, which was elevated (56) as well as C-reactive proteins , which were elevated (4.27). Today I will repeat ESR and C-reactive protein and the results are pending at this time. The patient also expressed that she has had these episodes before and she used Benadryl cream which helped. Therefore, I have started the patient on Benadryl cream daily. 2. Global weakness: At this time, the patient expressed that she feels better. This is a nonspecific complaint. The patient had a blood culture as well as urine culture which were negative. Chest x-ray as well as CT of the head were negative as well. The patient was on IV fluids, however, we have stopped IV fluids yesterday. Also the patient lives alone and her nearest family is in [place], therefore, we have consulted patient family services ([facility]) and we are waiting for further confirmation from [facility]. The patient is also following with physical therapy. 3. Left lower extremity pain: Ultrasound of the lower extremity was negative. X-ray did not show any fracture. This is a chronic pain. At this time we will continue monitoring the patient for any abdominal symptoms. 4. Chronic anemia: We have ordered iron studies which indicate low iron level and the patient was started on ferrous gluconate. Also the patient's low hemoglobin and hematocrit contributed by IV fluids. However, we have stopped the IV fluids yesterday and today the patient's hemoglobin and hematocrit have increased. Yesterday we have started the patient on vitamin C and bowel regimen since the patient is on iron pill which causes constipation. 5. Depression: At this time, the patient is stable. The patient is following with psychiatrist and psychologist. The patient denied recent suicidal ideations. The patient denies trying to hurt herself or other people. Will continue the patient on the current dosage of Wellbutrin, Cymbalta and Adderall. 6. Dyslipidemia: The patient was on a statin. However, we have stopped the statin due to global weakness. We will try to start the patient again on a statin. 7. History of cerebrovascular accident: The patient is on aspirin. The patient was on a statin, however, we held the statin due to global weakness. Will restart the patient on the statin. 8. Deep venous thrombosis prophylaxis: The patient is on Lovenox. My preceptor for this patient encounter was Dr. Farrah Das. The preceptor was physically present in the building during the encounter and was fully available. As needed, all aspects of the patient interview, examination, medical decision making process, and medical care plan development were reviewed and approved by the preceptor. The preceptor is aware and concurs with the plan as stated in the body of this note and will attest to such by his/her cosignature.
[2016-08-08] MEDS: oxyBUTYnin *DITROPAN XL* 5 MG TABCR PO SCH (10:44)
[2016-08-08] MEDS: ATORVASTATIN 20 MG TAB PO SCH (10:44)
[2016-08-08] MEDS: ADDERALL 5 MG TAB PO SCH (10:44)
[2016-08-08] MEDS: VITAMIN D 1,000 INTERNATIONAL UNITS TABLET PO SCH (10:45)
[2016-08-08] MEDS: ASPIRIN 81 MG ENTERIC TAB PO SCH (10:45)
[2016-08-08] MEDS: buPROPion **XL** TABLET 150MG (WELLBUTRIN XL) PO SCH (10:45)
[2016-08-08] MEDS: CETIRIZINE (ZyrTEC) 10 MG TAB PO SCH (10:45)
[2016-08-08] MEDS: DULoxetine 30 MG CAP (CYMBALTA) PO SCH ×2 (10:45→20:07)
[2016-08-08] MEDS: FERROUS GLUCONATE 324 MG TAB PO SCH (10:45)
[2016-08-08] MEDS: SENOKOT S TAB PO SCH ×2 (10:45→20:06)
[2016-08-08] MEDS: OMEPRAZOLE 20 MG CAP PO SCH (10:45)
[2016-08-08] MEDS: ENOXAPARIN 30 MG/0.3 ML SYR (J1650) SC SCH (10:46)
[2016-08-08] MEDS: ASCORBIC ACID 500 MG TAB PO SCH ×2 (10:46→20:07)
[2016-08-08] MEDS: predniSONE 20 MG TAB PO SCH (10:46)
[2016-08-08] MEDS ORDERED: MOM 30ML SUSPENSION UDC PO PRN (12:45)
[2016-08-08 14:00] VITALS: BP 143/65
--- NOTE | 2016-08-08 14:18 | IPN ---
DATE: 08/08/2016 SUBJECTIVE: Ms. Ponce is an 80-year-old female who was seen and examined at the bedside. The patient denies chest pain, orthopnea, paroxysmal nocturnal dyspnea (PND). The patient also denies nausea, vomiting, diarrhea, or constipation; however, patient continues to have discomfort on her right 4th digit of her hand. The patient has been seen by Dr. Shaffer and orthopedics. At this time, the patient is stable. OBJECTIVE: VITAL SIGNS: Temperature 97.7, pulse 94, respiratory rate 20, blood pressure 142/62, pulse oximetry 99% on room air. Total intake from yesterday 820, total output 225. GENERAL APPEARANCE: The patient was sitting on the bed, in no acute distress. The patient was awake, alert, and oriented to time, place, and person. HEENT: Normocephalic, atraumatic. Pupils are equal and reactive to light. Oral mucosal is moist. NECK: Soft, supple. No lymphadenopathy or thyromegaly. HEART: Regular rate and rhythm. Normal S1, S2. LUNGS: Clear breath sounds bilaterally. Good air movement. ABDOMEN: Soft, nontender. Positive bowel sounds in all quadrants. EXTREMITIES: No lower extremity edema. +2 pulses in both upper and lower extremities. The patient has erythema and mild swelling of the right 4th digit of the hand, however it has decreased compared to yesterday and the patient has mild tenderness to palpation of the right 4th digit of the hand. LABORATORY DATA: White blood cells 9.1, red blood cells 3.27, hemoglobin 8.9, hematocrit 27.4, MCV 84, MCH 27.4, MCHC 32.6, RDW 14.8, platelet count 286, neutrophil percentage 81.5, lymphocyte percentage 12.2, monocyte percentage 5.3, eosinophil percentage 0.2, basophil percentage 0.1, leukocyte percentage 0.6. Sodium 138, potassium 3.9, chloride 101, carbon dioxide 31, anion gap 6, BUN 22, creatinine 0.56, glomerular filtration rate (GFR) more than 60, fasting glucose 118, calcium 9.1, magnesium 2.2, total bilirubin 0.3, AST 19, ALT 29, alkaline phosphatase 87, total protein 6.9, albumin 2.9. IMAGING TECHNIQUES: MRI of the hand which shows findings consistent with osteomyelitis of the distal aspect of the proximal phalanx of the 4th digit. Severe surrounding soft tissue swelling suspicious for cellulitis. There is no evidence of abscess in that area. ASSESSMENT AND PLAN: 1. Right hand 4th digit swelling and erythema. Patient was seen by Dr. Shaffer. Dr. Shaffer had evaluated the x-ray and the MRI with Dr. Shoemaker (radiologist) and they believe that the patient has typical findings of tophaceous gout and unlikely to be osteomyelitis. Based on Dr. Shaffer's recommendations, antibiotic has been stopped and the patient was started on prednisone 20 mg. Today the patient is feeling better, however if the patient becomes worse we will require to have aspiration of the PIP joint to rule out other possibilities, etiology including pseudogout or infectious. However, this is unlikely. At this time, the patient is doing better. We will continue to monitor the patient for any abnormal symptoms. 2. Global weakness. This is a nonspecific complaint, however at this time, the patient is at baseline. The patient has been seen by physical therapy and was cleared to discharge with home services. [facility] has been following with the patient. The patient's relatives live in [place] and the patient does not have anybody here, however, patient does not want to live in [place] and the patient has been accepted at [facility] assisted living, however they requested that the patient have a psych evaluation before the patient being sent. Since the patient has a history of depression, we have ordered PPT and the result is pending at this time. 3. Chronic anemia. At this time, the patient is on vitamin C regimen as well as ferrous gluconate. Patient also is on bowel regimen. 4. Depression. As an outpatient, the patient was following with Dr. Stein every month and Dr. Nicole Montes, psychologist, every week. Due to request from [facility], we have consulted Dr. Barth who will see the patient for evaluation before sending the patient to [facility]. At this time, the patient is on Wellbutrin, Cymbalta, and Adderall. 5. Dyslipidemia. Patient is on a statin. 6. History of cerebrovascular disease. The patient is on aspirin as well as a statin. 7. Deep venous thrombosis (DVT) prophylaxis. Patient is on Lovenox. My preceptor for this patient encounter was Dr. Farrah Das. The preceptor was physically present in the building during the encounter and was fully available. As needed, all aspects of the patient interview, examination, medical decision making process, and medical care plan development were reviewed and approved by the preceptor. The preceptor is aware and concurs with the plan as stated in the body of this note and will attest to such by his/her cosignature.
[2016-08-08 18:00] VITALS: BP 141/78
[2016-08-08] MEDS: BISACODYL 5 MG TAB PO PRN (18:26)
[2016-08-08 22:00] VITALS: BP 146/71
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
[2016-08-09 02:00] VITALS: BP 135/68
[2016-08-09 06:00] VITALS: BP 138/65
[2016-08-09 06:21] LABS: BASO % 0.2 % (0.0-1.0); EOS # 0.1 K/mm3 (0.0-0.50); EOS % 1.2 % (0.0-3.0); LARGE UNSTAINED CELL # 0.1 K/mm3 (0.0-0.4); LARGE UNSTAINED CELL % 1.2 % (0.0-4.0); LYMPH # 2.9 K/mm3 (1.5-4.5); MEAN CORPUSCULAR HEMOGLOBIN 27.2 pg (27.0-33.0); MEAN CORPUSCULAR HGB CONC 31.7 g/dl (32.0-36.5); MONO # 0.8 K/mm3 (0.0-0.8); MONO % 7.1 % (0.0-5.0); NEUTROPHILS # 6.8 K/mm3 (1.8-7.7); NEUTROPHILS % 63.3 % (36.0-66.0); PLATELET COUNT, AUTOMATED 265 k/mm3 (150-450); RED CELL DISTRIBUTION WIDTH 14.8 % (11.5-14.5); WHITE BLOOD COUNT 10.7 K/mm3 (4.0-10.0)
[2016-08-09 06:35] LABS: ALBUMIN 2.6 GM/DL (3.2-5.2); ALBUMIN/GLOBULIN RATIO 0.72 (1.00-1.93); ALKALINE PHOSPHATASE 77 U/L (45-117); ALT/SGPT 27 U/L (12-78); ANION GAP 6 MEQ/L (8-16); AST/SGOT 19 U/L (15-37); BILIRUBIN,TOTAL 0.3 MG/DL (0.2-1.0); BLOOD UREA NITROGEN 24 MG/DL (7-18); CALCIUM LEVEL 8.2 MG/DL (8.8-10.2); CARBON DIOXIDE LEVEL 30 MEQ/L (21-32); CHLORIDE LEVEL 103 MEQ/L (98-107); GLOMERULAR FILTRATION RATE > 60.0 (>32); GLUCOSE, FASTING 90 MG/DL (83-110); MAGNESIUM LEVEL 1.8 MG/DL (1.8-2.4); POTASSIUM SERUM 3.4 MEQ/L (3.5-5.1); SODIUM LEVEL 139 MEQ/L (136-145); TOTAL PROTEIN 6.2 GM/DL (6.4-8.2)
[2016-08-09 09:00] VITALS: BP 136/67
[2016-08-09] MEDS: ADDERALL 5 MG TAB PO SCH (09:48)
[2016-08-09] MEDS: ENOXAPARIN 30 MG/0.3 ML SYR (J1650) SC SCH (09:48)
[2016-08-09] MEDS: OMEPRAZOLE 20 MG CAP PO SCH (09:49)
[2016-08-09] MEDS: BISACODYL 5 MG TAB PO PRN (09:49)
[2016-08-09] MEDS: FERROUS GLUCONATE 324 MG TAB PO SCH (09:49)
[2016-08-09] MEDS: ATORVASTATIN 20 MG TAB PO SCH (09:49)
[2016-08-09] MEDS: VITAMIN D 1,000 INTERNATIONAL UNITS TABLET PO SCH (09:49)
[2016-08-09] MEDS: ASPIRIN 81 MG ENTERIC TAB PO SCH (09:49)
[2016-08-09] MEDS: oxyBUTYnin *DITROPAN XL* 5 MG TABCR PO SCH (09:49)
[2016-08-09] MEDS: buPROPion **XL** TABLET 150MG (WELLBUTRIN XL) PO SCH (09:49)
[2016-08-09] MEDS: CETIRIZINE (ZyrTEC) 10 MG TAB PO SCH (09:49)
[2016-08-09] MEDS: predniSONE 20 MG TAB PO SCH (09:49)
[2016-08-09] MEDS: SENOKOT S TAB PO SCH ×2 (09:50→20:00)
[2016-08-09] MEDS: DULoxetine 30 MG CAP (CYMBALTA) PO SCH ×2 (09:50→20:00)
[2016-08-09] MEDS: ASCORBIC ACID 500 MG TAB PO SCH ×2 (09:50→20:00)
[2016-08-09] MEDS ORDERED: guaiFENesin SYRUP 200 MG/10 ML UDC PO ONE (11:15)
--- NOTE | 2016-08-09 11:42 | IPN ---
DATE: 08/08/2016 The patient was seen at 4:30. She was sitting in her chair feeling great, claiming that her finger is not as swollen and not as painful. She has had no nausea, vomiting or diarrhea. No abdominal pain. No shortness of breath. No other complaints. T-max 99.1, pulse 113, respirations 20, blood pressure 141/78, O2 sat 97% on room air. Heart: Normal S1, S2. Lungs are clear. No wheezes, rales or rhonchi. Abdomen: Soft, nontender. Extremities: No lower extremity edema with good pulses. Right fourth digit erythema, mild swelling at the PIP joint but good range of motion. She has tophi on other fingers. LABORATORY DATA: White count is 9.1, hemoglobin 8.9, hematocrit 27.4, platelets 246, 81% neutrophils, 12% lymphocytes, 5% monocytes. Sodium 138, potassium 3.9, chloride 101, bicarb 31, BUN 22, creatinine 0.56, glucose 118, calcium 9.1, magnesium 2.2. Liver profile normal. Albumin 2.9. Blood cultures two sets, urine culture are negative. Influenza A and B are negative. 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 MRI findings are typical of gout according to Dr. Shoemaker and therefore I am not concerned about osteomyelitis. She has no reason to have osteomyelitis. The patient was not bacteremic. Major depression. Patient has been seen by Dr. Barth in consultation. Her lives at [facility] in [place] and they seem to have some issues. Note was reviewed. The patient is stable from a psychiatric standpoint. PLAN: Continue prednisone for total of 5 days.
[2016-08-09] MEDS ORDERED: POTASSIUM CHLORIDE 10 MEQ SR TABLET PO ONE (13:15)
[2016-08-09 14:00] VITALS: BP 152/70
[2016-08-09] MEDS ORDERED: PPD DOCUMENTATION ENTRY MISC XX SCH (15:00)
[2016-08-09 18:00] VITALS: BP 142/80
[2016-08-09 22:00] VITALS: BP 141/67
[2016-08-10 02:00] VITALS: BP 136/71
[2016-08-10 06:00] VITALS: BP 137/70
[2016-08-10 06:15] LABS: BASO % 0.3 % (0.0-1.0); EOS # 0.2 K/mm3 (0.0-0.50); EOS % 1.7 % (0.0-3.0); LARGE UNSTAINED CELL # 0.2 K/mm3 (0.0-0.4); LARGE UNSTAINED CELL % 1.5 % (0.0-4.0); LYMPH # 3.5 K/mm3 (1.5-4.5); LYMPH % 28.8 % (24.0-44.0); MEAN CORPUSCULAR HEMOGLOBIN 27.4 pg (27.0-33.0); MEAN CORPUSCULAR VOLUME 85.6 fl (80.0-96.0); MONO # 0.8 K/mm3 (0.0-0.8); NEUTROPHILS # 7.1 K/mm3 (1.8-7.7); NEUTROPHILS % 60.7 % (36.0-66.0); PLATELET COUNT, AUTOMATED 314 k/mm3 (150-450); RED CELL DISTRIBUTION WIDTH 14.8 % (11.5-14.5); WHITE BLOOD COUNT 11.7 K/mm3 (4.0-10.0)
[2016-08-10 06:57] LABS: ALBUMIN/GLOBULIN RATIO 0.73 (1.00-1.93); ALKALINE PHOSPHATASE 98 U/L (45-117); ALT/SGPT 36 U/L (12-78); ANION GAP 5 MEQ/L (8-16); AST/SGOT 23 U/L (15-37); BILIRUBIN,TOTAL 0.2 MG/DL (0.2-1.0); BLOOD UREA NITROGEN 24 MG/DL (7-18); CALCIUM LEVEL 8.9 MG/DL (8.8-10.2); CARBON DIOXIDE LEVEL 32 MEQ/L (21-32); CHLORIDE LEVEL 102 MEQ/L (98-107); CREATININE FOR GFR 0.55 MG/DL (0.55-1.02); GLOMERULAR FILTRATION RATE > 60.0 (>32); GLUCOSE, FASTING 89 MG/DL (83-110); MAGNESIUM LEVEL 2.1 MG/DL (1.8-2.4); POTASSIUM SERUM 3.9 MEQ/L (3.5-5.1); SODIUM LEVEL 139 MEQ/L (136-145); TOTAL PROTEIN 7.1 GM/DL (6.4-8.2)
[2016-08-10] MEDS: OMEPRAZOLE 20 MG CAP PO SCH (09:52)
[2016-08-10] MEDS: FERROUS GLUCONATE 324 MG TAB PO SCH (09:52)
[2016-08-10] MEDS: ASPIRIN 81 MG ENTERIC TAB PO SCH (09:52)
[2016-08-10] MEDS: BISACODYL 5 MG TAB PO PRN (09:52)
[2016-08-10] MEDS: predniSONE 20 MG TAB PO SCH (09:52)
[2016-08-10] MEDS: ATORVASTATIN 20 MG TAB PO SCH (09:52)
[2016-08-10] MEDS: DULoxetine 30 MG CAP (CYMBALTA) PO SCH ×2 (09:52→21:27)
[2016-08-10] MEDS: SENOKOT S TAB PO SCH ×2 (09:52→21:26)
[2016-08-10] MEDS: ASCORBIC ACID 500 MG TAB PO SCH ×2 (09:52→21:27)
[2016-08-10] MEDS: CETIRIZINE (ZyrTEC) 10 MG TAB PO SCH (09:52)
[2016-08-10] MEDS: oxyBUTYnin *DITROPAN XL* 5 MG TABCR PO SCH (09:52)
[2016-08-10] MEDS: VITAMIN D 1,000 INTERNATIONAL UNITS TABLET PO SCH (09:52)
[2016-08-10] MEDS: buPROPion **XL** TABLET 150MG (WELLBUTRIN XL) PO SCH (09:52)
[2016-08-10] MEDS: ENOXAPARIN 30 MG/0.3 ML SYR (J1650) SC SCH (09:53)
[2016-08-10] MEDS: ADDERALL 5 MG TAB PO SCH (09:53)
[2016-08-10 22:00] VITALS: BP 149/70
[2016-08-11 06:00] VITALS: BP 140/66
[2016-08-11] MEDS: FERROUS GLUCONATE 324 MG TAB PO SCH (09:48)
[2016-08-11] MEDS: ASPIRIN 81 MG ENTERIC TAB PO SCH (09:48)
[2016-08-11] MEDS: oxyBUTYnin *DITROPAN XL* 5 MG TABCR PO SCH (09:48)
[2016-08-11] MEDS: VITAMIN D 1,000 INTERNATIONAL UNITS TABLET PO SCH (09:48)
[2016-08-11] MEDS: buPROPion **XL** TABLET 150MG (WELLBUTRIN XL) PO SCH (09:48)
[2016-08-11] MEDS: DULoxetine 30 MG CAP (CYMBALTA) PO SCH ×2 (09:49→20:44)
[2016-08-11] MEDS: ADDERALL 5 MG TAB PO SCH (09:49)
[2016-08-11] MEDS: OMEPRAZOLE 20 MG CAP PO SCH (09:49)
[2016-08-11] MEDS: ASCORBIC ACID 500 MG TAB PO SCH ×2 (09:49→20:44)
[2016-08-11] MEDS: SENOKOT S TAB PO SCH ×2 (09:49→20:44)
[2016-08-11] MEDS: ATORVASTATIN 20 MG TAB PO SCH (09:49)
[2016-08-11] MEDS: CETIRIZINE (ZyrTEC) 10 MG TAB PO SCH (09:49)
[2016-08-11] MEDS: ENOXAPARIN 30 MG/0.3 ML SYR (J1650) SC SCH (09:49)
[2016-08-11] MEDS: predniSONE 20 MG TAB PO SCH (09:49)
[2016-08-12 06:00] VITALS: BP 133/63
[2016-08-12 08:02] LABS: MEAN CORPUSCULAR HGB CONC 32.3 g/dl (32.0-36.5); MEAN CORPUSCULAR VOLUME 86.6 fl (80.0-96.0); RED CELL DISTRIBUTION WIDTH 14.7 % (11.5-14.5); WHITE BLOOD COUNT 11.5 K/mm3 (4.0-10.0)
[2016-08-12 08:34] LABS: ANION GAP 8 MEQ/L (8-16); BLOOD UREA NITROGEN 17 MG/DL (7-18); CALCIUM LEVEL 8.4 MG/DL (8.8-10.2); CARBON DIOXIDE LEVEL 31 MEQ/L (21-32); CHLORIDE LEVEL 101 MEQ/L (98-107); CREATININE FOR GFR 0.67 MG/DL (0.55-1.02); GLOMERULAR FILTRATION RATE > 60.0 (>32); GLUCOSE, FASTING 120 MG/DL (83-110); POTASSIUM SERUM 3.8 MEQ/L (3.5-5.1); SODIUM LEVEL 140 MEQ/L (136-145)
[2016-08-12] MEDS: CETIRIZINE (ZyrTEC) 10 MG TAB PO SCH (08:39)
[2016-08-12] MEDS: ENOXAPARIN 30 MG/0.3 ML SYR (J1650) SC SCH (08:39)
[2016-08-12] MEDS: DULoxetine 30 MG CAP (CYMBALTA) PO SCH ×2 (08:39→21:49)
[2016-08-12] MEDS: FERROUS GLUCONATE 324 MG TAB PO SCH (08:39)
[2016-08-12] MEDS: ASPIRIN 81 MG ENTERIC TAB PO SCH (08:39)
[2016-08-12] MEDS: VITAMIN D 1,000 INTERNATIONAL UNITS TABLET PO SCH (08:39)
[2016-08-12] MEDS: ASCORBIC ACID 500 MG TAB PO SCH ×2 (08:39→21:50)
[2016-08-12] MEDS: SENOKOT S TAB PO SCH ×2 (08:39→21:50)
[2016-08-12] MEDS: ACETAMINOPHEN TAB 650MG DOSE (2X325MG) PO PRN (08:40)
[2016-08-12] MEDS: ATORVASTATIN 20 MG TAB PO SCH (08:40)
[2016-08-12] MEDS: ADDERALL 5 MG TAB PO SCH (08:40)
[2016-08-12] MEDS: OMEPRAZOLE 20 MG CAP PO SCH (08:40)
[2016-08-12] MEDS: buPROPion **XL** TABLET 150MG (WELLBUTRIN XL) PO SCH (08:59)
[2016-08-12] MEDS: oxyBUTYnin *DITROPAN XL* 5 MG TABCR PO SCH (08:59)
[2016-08-13 06:00] VITALS: BP 134/64
[2016-08-13] MEDS: oxyBUTYnin *DITROPAN XL* 5 MG TABCR PO SCH (09:29)
[2016-08-13] MEDS: buPROPion **XL** TABLET 150MG (WELLBUTRIN XL) PO SCH (09:30)
[2016-08-13] MEDS: ASPIRIN 81 MG ENTERIC TAB PO SCH (09:30)
[2016-08-13] MEDS: FERROUS GLUCONATE 324 MG TAB PO SCH (09:30)
[2016-08-13] MEDS: CETIRIZINE (ZyrTEC) 10 MG TAB PO SCH (09:30)
[2016-08-13] MEDS: ASCORBIC ACID 500 MG TAB PO SCH ×2 (09:30→20:08)
[2016-08-13] MEDS: SENOKOT S TAB PO SCH ×2 (09:30→20:08)
[2016-08-13] MEDS: DULoxetine 30 MG CAP (CYMBALTA) PO SCH ×2 (09:30→20:08)
[2016-08-13] MEDS: ADDERALL 5 MG TAB PO SCH (09:30)
[2016-08-13] MEDS: ATORVASTATIN 20 MG TAB PO SCH (09:30)
[2016-08-13] MEDS: VITAMIN D 1,000 INTERNATIONAL UNITS TABLET PO SCH (09:30)
[2016-08-13] MEDS: OMEPRAZOLE 20 MG CAP PO SCH (09:31)
[2016-08-13] MEDS: ENOXAPARIN 30 MG/0.3 ML SYR (J1650) SC SCH (09:31)
[2016-08-13] MEDS: BISACODYL 5 MG TAB PO PRN (20:08)
[2016-08-14 06:00] VITALS: BP 132/64
[2016-08-14] MEDS: OMEPRAZOLE 20 MG CAP PO SCH (10:49)
[2016-08-14] MEDS: ASPIRIN 81 MG ENTERIC TAB PO SCH (10:49)
[2016-08-14] MEDS: DULoxetine 30 MG CAP (CYMBALTA) PO SCH (10:49)
[2016-08-14] MEDS: FERROUS GLUCONATE 324 MG TAB PO SCH (10:49)
[2016-08-14] MEDS: ADDERALL 5 MG TAB PO SCH (10:49)
[2016-08-14] MEDS: ATORVASTATIN 20 MG TAB PO SCH (10:50)
[2016-08-14] MEDS: oxyBUTYnin *DITROPAN XL* 5 MG TABCR PO SCH (10:50)
[2016-08-14] MEDS: ENOXAPARIN 30 MG/0.3 ML SYR (J1650) SC SCH (10:50)
[2016-08-14] MEDS: CETIRIZINE (ZyrTEC) 10 MG TAB PO SCH (10:50)
[2016-08-14] MEDS: SENOKOT S TAB PO SCH (10:50)
[2016-08-14] MEDS: VITAMIN D 1,000 INTERNATIONAL UNITS TABLET PO SCH (10:50)
[2016-08-14] MEDS: ASCORBIC ACID 500 MG TAB PO SCH (10:50)
[2016-08-14] MEDS: buPROPion **XL** TABLET 150MG (WELLBUTRIN XL) PO SCH (10:50)
[2016-08-14] MEDS ORDERED: FISH500C PO (13:52)
[2016-08-14] MEDS ORDERED: RED1CAP5 PO (13:52)
[2016-08-14] MEDS ORDERED: BUPR150T3 PO (13:52)
[2016-08-14] MEDS ORDERED: VITA100066 PO (13:52)
[2016-08-14] MEDS ORDERED: ATOR40TA PO (13:52)
[2016-08-14] MEDS ORDERED: CETI10TA PO (13:52)
[2016-08-14] MEDS ORDERED: DULO1CAP2 PO (13:52)
[2016-08-14] MEDS ORDERED: GINK120T2 PO (13:52)
[2016-08-14] MEDS ORDERED: VITA500T88 PO (13:52)
[2016-08-14] MEDS ORDERED: OMEP20CA3 PO (13:52)
[2016-08-14] MEDS ORDERED: ASPI81TA7 PO (13:52)
[2016-08-14] MEDS ORDERED: CO Q100C10 PO (13:52)
[2016-08-14] MEDS ORDERED: FERR325T PO (13:52)
[2016-08-14] MEDS ORDERED: REST0.05 OU (13:52)
[2016-08-14] MEDS ORDERED: OXYB10TA PO (13:52)
[2016-08-14] MEDS ORDERED: ADDE30CA PO (14:02)
--- NOTE | 2016-08-16 22:48 | DSES ---
DATE OF ADMISSION: 08/05/2016 DATE OF DISCHARGE: 08/14/2016 PRIMARY CARE PHYSICIAN: Dr. Joaquin. CONSULTANTS: Dr. Shaffer, orthopedics Dr. Titus, and Dr. Barth, psychiatrist. PROCEDURES: None. DISCHARGE MEDICATIONS: - ascorbic acid 500 mg by mouth daily - aspirin 81 mg by mouth daily - atorvastatin 40 mg by mouth daily - bupropion 150 mg by mouth daily - cetirizine 10 mg by mouth daily - vitamin D 1000 units by mouth daily - duloxetine 30 mg by mouth twice a day - ferrous sulfate 325 mg by mouth twice a day - fish oil 500 mg by mouth daily - gingko biloba 120 mg by mouth daily - omeprazole 20 mg by mouth daily - oxybutynin 10 mg by mouth tab - red rice yeast 300 mg by mouth daily - Restasis 0.5% both eyes twice a day - Adderall XR 30 mg one cap by mouth daily - CoQ 100 mg by mouth daily PRIMARY DIAGNOSIS: Global weakness. SECONDARY DIAGNOSES: 1. Left lower extremity pain. 2. Chronic anemia. 3. Depression. 4. Dyslipidemia. 5. Cerebrovascular accident. HOSPITAL COURSE: Mx Ponce is an 80-year-old female with multiple past medical history, who presented by her neighbor. The patient evidently lives in the [facility] alone, and her and her daughter live in [place]. The was not able to reach his by phone for a couple of days, so he called a neighbor and asked her to go check on her. The patient expressed that she does not feel well. She was not able to identify any specific complaints, but just rather stated that she is exhausted. The patient was transferred to the emergency room. The patient with inability to ambulate and get out of the bed for the last days. Lab work did not indicate any new pathology. Urinalysis (UA) and urine culture did not indicate any infection. The patient was started on gentle intravenous (IV) fluid. Also, addiction social worker was called. The patient had the chronic anemia. The patient denied any hematochezia or melena. Iron study indicated low iron. X-ray was negative. CT of the head was negative. Ultrasound Doppler negative for deep venous thrombosis. The patient was continued on intravenous fluid. Also, we have consulted physical therapy. However, physical therapy was interrupted due to patient being weak. However, restarted after patient gained more power. Due to the left lower extremity, we ordered x-ray which was negative. The patient was started on ferrous gluconate due to patient's having allergy to SULFA AND SULFA DRUGS. The patient had swelling of the right ring finger. We consulted orthopedics who could not rule out osteomyelitis. Therefore, the patient was started on IV antibiotics. However, we also consulted Dr. Shaffer who reviewed the MRI of the hand and x-ray, and she believes that this is gout, and the patient was started on prednisone for seven days. After that, the patient was feeling better and the swelling had gone away. Patient and family services (PFS) recommended that the patient live in [facility]. At first the patient did not accept due to the budget. However, the patient changed her mind and decided to live in [place]. On the day of discharge, the patient was medically optimized. DISCHARGE PLACEMENT: [facility]. ACTIVITY: As tolerated by patient. FOLLOWUP: Please followup with your primary care. My preceptor for this patient encounter was Dr. Fredrick Quintero. The preceptor was physically present in the building during the encounter and was fully available as needed. All aspects of the patient interview, examination, medical decision making process, and medical care plan development were reviewed and approved by the preceptor. The preceptor is aware and concurs with the plan as stated in the body of this note and will attest to such by his/her co-signature.
== END 2016-08-14 12:58 | DRG 948 ==
LOC: EDBD 21:04 → M ED 22:20 → M MSPAV 08-04 00:36 → OBSVTOIN 08-05 12:44
PROVIDERS: ADMIT Hospitalist; ATTEND Hospitalist
DX: R53.1 Weakness (principal); F33.40 Major depressive disorder, recurrent, in remission, unspecified; D50.9 Iron deficiency anemia, unspecified; Z86.73 Personal history of transient ischemic attack (TIA), and cerebral infarction without residual deficits; Z87.891 Personal history of nicotine dependence; Z88.0 Allergy status to penicillin; Z88.2 Allergy status to sulfonamides; M19.041 Primary osteoarthritis, right hand; K21.9 Gastro-esophageal reflux disease without esophagitis; M17.11 Unilateral primary osteoarthritis, right knee; M19.042 Primary osteoarthritis, left hand; M1A.0411 Idiopathic chronic gout, right hand, with tophus (tophi); M79.662 Pain in left lower leg; Z66 Do not resuscitate; Z91.040 Latex allergy status; Z88.1 Allergy status to other antibiotic agents; Z88.5 Allergy status to narcotic agent; E78.5 Hyperlipidemia, unspecified; Z79.82 Long term (current) use of aspirin; Z79.899 Other long term (current) drug therapy

== ENCOUNTER 2016-09-16 11:44 | Emergency (ER) | payer MEDICARE, OTHER ==
[~2016-09-16 11:44] MED LIST changes: +ADDE30CA3 PO; +ASPI1TAB15 PO; +ATOR40TA75 PO; +BUPR150T3 PO; +CETI10TA PO; +CO Q100C10 PO; +DULO1CAP2 PO; +FERR1TAB8 PO; +FISH500C PO; +GINK120T PO; +OMEP20CA3 PO; +OXYB10TA PO; +RED1CAP5 PO; +REST0.05 OU; +VITA100066 PO; +VITA500T88 PO
[2016-09-16] MEDS ORDERED: senna (12:14)
[2016-09-16] MEDS ORDERED: MIRA3350 PO (12:14)
--- NOTE | 2016-09-16 13:09 | REP ---
Clinical: Epigastric and abdominal pain. Technique: Upright view of the chest with supine and upright views of the abdomen and pelvis. Findings: Frontal upright view of the chest demonstrates no acute cardiopulmonary process or free air below the diaphragm to suspect pneumoperitoneum. Supine and upright views of the abdomen and pelvis demonstrate nonspecific bowel gas pattern without obstruction or perforation. No organomegaly. No abnormal calcifications. Skeletal structures normal for age. Impression: Nonspecific bowel gas pattern. Signed by Grant Greenberg MD 09/16/2016 01:01 P
[2016-09-16] MEDS ORDERED: CITRSOL8 PO (13:21)
[2016-09-16 14:01] VITALS: BP 154/70
== END 2016-09-16 14:38 | disposition home or self-care (01) ==
LOC: M ED 13:30
DX: K59.00 Constipation, unspecified (principal); Z87.891 Personal history of nicotine dependence

== ENCOUNTER → 2016-09-30 | Outpatient (REF) | payer MEDICARE, OTHER ==
[~2016-09-30] MED LIST changes: +CITRSOL8 PO; +MIRA3350 PO; +senna
[2016-09-30 18:03] LABS: BASO # 0.1 K/mm3 (0.0-0.2); BASO % 1.2 % (0.0-1.0); EOS # 0.2 K/mm3 (0.0-0.50); EOS % 3.7 % (0.0-3.0); LARGE UNSTAINED CELL # 0.1 K/mm3 (0.0-0.4); LARGE UNSTAINED CELL % 0.9 % (0.0-4.0); LYMPH # 1.5 K/mm3 (1.5-4.5); LYMPH % 28.1 % (24.0-44.0); MEAN CORPUSCULAR HEMOGLOBIN 29.5 pg (27.0-33.0); MEAN CORPUSCULAR HGB CONC 33.3 g/dl (32.0-36.5); MEAN CORPUSCULAR VOLUME 88.5 fl (80.0-96.0); MONO # 0.3 K/mm3 (0.0-0.8); MONO % 6.4 % (0.0-5.0); NEUTROPHILS # 3.1 K/mm3 (1.8-7.7); NEUTROPHILS % 59.7 % (36.0-66.0); PLATELET COUNT, AUTOMATED 227 k/mm3 (150-450); RED CELL DISTRIBUTION WIDTH 15.9 % (11.5-14.5); WHITE BLOOD COUNT 5.2 K/mm3 (4.0-10.0)
[2016-09-30 18:11] LABS: FOLATE > 24.0 NG/ML (>5.4); VITAMIN B12 LEVEL 541 PG/ML (247-911)
[2016-09-30 18:20] LABS: ALBUMIN 4.3 GM/DL (3.2-5.2); ALBUMIN/GLOBULIN RATIO 1.48 (1.00-1.93); ALKALINE PHOSPHATASE 81 U/L (45-117); ALT/SGPT 28 U/L (12-78); ANION GAP 6 MEQ/L (8-16); AST/SGOT 22 U/L (15-37); BILIRUBIN,TOTAL 0.5 MG/DL (0.2-1.0); BLOOD UREA NITROGEN 29 MG/DL (7-18); CALCIUM LEVEL 9.3 MG/DL (8.8-10.2); CARBON DIOXIDE LEVEL 30 MEQ/L (21-32); CHLORIDE LEVEL 102 MEQ/L (98-107); CREATININE FOR GFR 0.61 MG/DL (0.55-1.02); GLOMERULAR FILTRATION RATE > 60.0 (>32); GLUCOSE, FASTING 92 MG/DL (83-110); POTASSIUM SERUM 4.1 MEQ/L (3.5-5.1); SODIUM LEVEL 138 MEQ/L (136-145); TOTAL PROTEIN 7.2 GM/DL (6.4-8.2)
== END ==
LOC: M SFHCCLAY 11:52
PROVIDERS: ATTEND Family Medicine
DX: D64.9 Anemia, unspecified (principal)

== ENCOUNTER → 2017-06-19 | Outpatient (REF) | payer MEDICARE, OTHER ==
[2017-06-19 16:54] LABS: BASO % 0.4 % (0.0-1.0); EOS # 0.1 10^3/uL (0.0-0.50); HEMATOCRIT 30.5 % (36.0-47.0); IMMATURE GRANULOCYTE % 0.2 % (0-3.0); LYMPH # 1.8 10^3/uL (1.5-4.5); LYMPH % 32.1 % (24.0-44.0); MEAN CORPUSCULAR HEMOGLOBIN 29.7 pg (27.0-33.0); MEAN CORPUSCULAR HGB CONC 32.8 g/dl (32.0-36.5); MEAN CORPUSCULAR VOLUME 90.5 fl (80.0-96.0); MONO # 0.5 10^3/uL (0.0-0.8); MONO % 9.1 % (0.0-5.0); NEUTROPHILS # 3.1 10^3/uL (1.8-7.7); NEUTROPHILS % 56.2 % (36.0-66.0); PLATELET COUNT, AUTOMATED 236 10^3/uL (150-450); RED BLOOD COUNT 3.37 10^6/uL (4.00-5.40); RED CELL DISTRIBUTION WIDTH 12.9 % (11.5-14.5); WHITE BLOOD COUNT 5.5 10^3/uL (4.0-10.0)
[2017-06-19 17:09] LABS: ALBUMIN 3.6 GM/DL (3.2-5.2); ALKALINE PHOSPHATASE 66 U/L (45-117); ALT/SGPT 20 U/L (12-78); ANION GAP 5 MEQ/L (8-16); AST/SGOT 10 U/L (7-37); BILIRUBIN,TOTAL 0.3 MG/DL (0.2-1.0); BLOOD UREA NITROGEN 24 MG/DL (7-18); CALCIUM LEVEL 8.8 MG/DL (8.8-10.2); CARBON DIOXIDE LEVEL 31 MEQ/L (21-32); CHLORIDE LEVEL 105 MEQ/L (98-107); CHOLESTEROL LEVEL 148 MG/DL (<200); CHOLESTEROL RISK RATIO 2.792 (<5); CREATININE FOR GFR 0.64 MG/DL (0.55-1.30); GLOMERULAR FILTRATION RATE > 60.0 (>32); GLUCOSE, FASTING 106 MG/DL (70-100); HDL CHOLESTEROL 53 MG/DL (>40); IRON (FE) 38 UG/DL (50-170); NON-HDL-C 95 MG/DL; POTASSIUM SERUM 4.2 MEQ/L (3.5-5.1); SODIUM LEVEL 141 MEQ/L (136-145); TOTAL PROTEIN 6.6 GM/DL (6.4-8.2); TRIGLYCERIDES LEVEL 70 MG/DL (<150)
== END ==
LOC: M SFHCCLAY 13:46
DX: E78.01 Familial hypercholesterolemia (principal); D64.9 Anemia, unspecified
CPT/HCPCS: 83540

== ENCOUNTER 2017-08-09 18:23 | Observation (INO) | payer MEDICARE, OTHER ==
[2017-08-09] MEDS ORDERED: DEXTROSE 50% 50 ML SYRINGE As Ordered (18:31)
[2017-08-09] MEDS: NS 1,000 ML IV (18:31)
[2017-08-09] MEDS: DEXTROSE 50% 50 ML SYRINGE IV (18:32)
[2017-08-09 18:51] LABS: BEDSIDE GLUCOSE 63 MG/DL (83-110)
[2017-08-09 18:55] LABS: BASO % 0.2 % (0.0-1.0); EOS # 0.1 10^3/uL (0.0-0.50); EOS % 1.5 % (0.0-3.0); HEMATOCRIT 33.5 % (36.0-47.0); HEMOGLOBIN 10.9 g/dl (12.0-15.5); IMMATURE GRANULOCYTE % 0.2 % (0-3.0); LYMPH # 2.1 10^3/uL (1.5-4.5); LYMPH % 32.3 % (24.0-44.0); MEAN CORPUSCULAR HEMOGLOBIN 29.1 pg (27.0-33.0); MEAN CORPUSCULAR HGB CONC 32.5 g/dl (32.0-36.5); MEAN CORPUSCULAR VOLUME 89.3 fl (80.0-96.0); MONO # 0.7 10^3/uL (0.0-0.8); MONO % 10.8 % (0.0-5.0); NEUTROPHILS # 3.6 10^3/uL (1.8-7.7); PLATELET COUNT, AUTOMATED 238 10^3/uL (150-450); RED BLOOD COUNT 3.75 10^6/uL (4.00-5.40); RED CELL DISTRIBUTION WIDTH 12.9 % (11.5-14.5); WHITE BLOOD COUNT 6.6 10^3/uL (4.0-10.0)
[2017-08-09 19:12] LABS: BEDSIDE GLUCOSE 115 MG/DL (83-110)
[2017-08-09 19:15] LABS: ABG BASE EXCESS -7.5 (-2.0-2.0); ABG STANDARD HCO3 17.9 MEQ/L (22.0-26.0)
[2017-08-09 19:16] LABS: ABG HCO3 16.7 MEQ/L (22.0-26.0); ABG O2 SATURATION 67.3 % (95.0-99.0); ABG PARTIAL PRESSURE CO2 28.1 mmHg (35.0-45.0); ABG TOTAL CO2 17.6 MEQ/L (23.0-31.0); ABG pH (ARTERIAL) 7.392 UNITS (7.350-7.450)
[2017-08-09 19:18] LABS: AMMONIA 15 uMOL/L (<32)
[2017-08-09 19:18] LABS: ABG PARTIAL PRESSURE O2 35.7 mmHg (75.0-100.0)
[2017-08-09 19:22] LABS: ACETAMINOPHEN LEVEL < 2.0 UG/ML (10.0-30.0); ALBUMIN 3.3 GM/DL (3.2-5.2); ALBUMIN/GLOBULIN RATIO 1.06 (1.00-1.93); ALKALINE PHOSPHATASE 62 U/L (45-117); ALT/SGPT 21 U/L (12-78); ANION GAP 6 MEQ/L (8-16); AST/SGOT 19 U/L (7-37); BILIRUBIN,DIRECT < 0.1 MG/DL (0.0-0.2); BILIRUBIN,TOTAL 0.3 MG/DL (0.2-1.0); BLOOD UREA NITROGEN 18 MG/DL (7-18); CALCIUM LEVEL 8.9 MG/DL (8.8-10.2); CARBON DIOXIDE LEVEL 33 MEQ/L (21-32); CHLORIDE LEVEL 104 MEQ/L (98-107); CPK CREATINE PHOSPHOKINASE 60 U/L (26-192); CREATININE FOR GFR 0.51 MG/DL (0.55-1.30); ETHYL ALCOHOL (ETHANOL) < 0.003 % (0.000-0.010); GLOMERULAR FILTRATION RATE > 60.0 (>32); GLUCOSE, FASTING 65 MG/DL (70-100); SODIUM LEVEL 143 MEQ/L (136-145); TOTAL PROTEIN 6.4 GM/DL (6.4-8.2); TROPONIN I < 0.02 NG/ML (< 0.10)
[2017-08-09 19:22] LABS: LACTIC ACID SEPSIS PROTOCOL 1.2 MMOL/L (0.4-2.0)
[2017-08-09 19:28] LABS: CK-MB VALUE MASS 1.5 NG/ML (<3.6)
[2017-08-09 20:46] LABS: KETONE, URINE AUTO RFX NEGATIVE (NEGATIVE); LEUKOCYTE ESTERASE UR AUTO RFX NEGATIVE (NEGATIVE); NITRITE, URINE AUTO RFX NEGATIVE (NEGATIVE); RBC, URINE AUTO RFX 0 /HPF (0-3); SPECIFIC GRAVITY UR AUTO RFX 1.013 (1.002-1.035); SQUAM EPITHELIAL CELL UR AURFX 0 /HPF (0-6); WBC, URINE AUTO RFX 1 /HPF (0-3)
[2017-08-09 21:05] LABS: AMPHETAMINES LEVEL URINE POSITIVE (NEGATIVE); BARBITURATES URINE NEGATIVE (NEGATIVE); BENZODIAZEPINES URINE NEGATIVE (NEGATIVE); CANNABINOIDS URINE NEGATIVE (NEGATIVE); COCAINE METABOLITE URINE NEGATIVE (NEGATIVE); METHADONE URINE NEGATIVE (NEGATIVE); OPIATES URINE NEGATIVE (NEGATIVE); PHENCYCLIDINE URINE NEGATIVE (NEGATIVE)
[2017-08-09] MEDS: D5W/0.9% SODIUM CHLORIDE 1,000 ML IV (21:38)
[2017-08-10] MEDS: DULoxetine 30 MG CAP (CYMBALTA) PO ×3 (00:21→20:08)
[2017-08-10] MEDS: HEPARIN SOD (PORCINE) 5000 UNITS/ML VIAL SC ×3 (06:04→22:00)
[2017-08-10 08:20] LABS: HEMATOCRIT 28.2 % (36.0-47.0); HEMOGLOBIN 9.3 g/dl (12.0-15.5); MEAN CORPUSCULAR HEMOGLOBIN 29.6 pg (27.0-33.0); MEAN CORPUSCULAR VOLUME 89.8 fl (80.0-96.0); PLATELET COUNT, AUTOMATED 194 10^3/uL (150-450); RED BLOOD COUNT 3.14 10^6/uL (4.00-5.40); RED CELL DISTRIBUTION WIDTH 12.8 % (11.5-14.5); WHITE BLOOD COUNT 6.4 10^3/uL (4.0-10.0)
[2017-08-10 08:36] LABS: ANION GAP 5 MEQ/L (8-16); BLOOD UREA NITROGEN 15 MG/DL (7-18); CALCIUM LEVEL 7.8 MG/DL (8.8-10.2); CARBON DIOXIDE LEVEL 28 MEQ/L (21-32); CHLORIDE LEVEL 109 MEQ/L (98-107); CREATININE FOR GFR 0.46 MG/DL (0.55-1.30); GLOMERULAR FILTRATION RATE > 60.0 (>32); GLUCOSE, FASTING 124 MG/DL (70-100); POTASSIUM SERUM 3.6 MEQ/L (3.5-5.1); SODIUM LEVEL 142 MEQ/L (136-145)
[2017-08-10 08:40] LABS: TROPONIN I 0.02 NG/ML (< 0.10)
[2017-08-10 08:41] LABS: CK-MB VALUE MASS 1.4 NG/ML (<3.6); CPK CREATINE PHOSPHOKINASE 45 U/L (26-192); MB/CK RELATIVE INDEX 3.11 (< OR =4)
[2017-08-10] MEDS: ATORVASTATIN 20 MG TAB PO ×2 (08:45→09:00)
[2017-08-10] MEDS: ASPIRIN 81 MG ENTERIC TAB PO (08:45)
[2017-08-10] MEDS: oxyBUTYnin *DITROPAN XL* 5 MG TABCR PO (08:46)
[2017-08-10] MEDS: OMEPRAZOLE 20 MG CAP PO (08:46)
[2017-08-11] MEDS: HEPARIN SOD (PORCINE) 5000 UNITS/ML VIAL SC ×3 (04:55→19:51)
[2017-08-11 07:29] LABS: BASO % 0.3 % (0.0-1.0); EOS # 0.1 10^3/uL (0.0-0.50); EOS % 2.2 % (0.0-3.0); HEMATOCRIT 29.2 % (36.0-47.0); HEMOGLOBIN 9.7 g/dl (12.0-15.5); IMMATURE GRANULOCYTE % 0.3 % (0-3.0); LYMPH # 1.9 10^3/uL (1.5-4.5); LYMPH % 32.7 % (24.0-44.0); MEAN CORPUSCULAR HEMOGLOBIN 29.7 pg (27.0-33.0); MEAN CORPUSCULAR HGB CONC 33.2 g/dl (32.0-36.5); MEAN CORPUSCULAR VOLUME 89.3 fl (80.0-96.0); MONO # 0.6 10^3/uL (0.0-0.8); MONO % 10.2 % (0.0-5.0); NEUTROPHILS # 3.1 10^3/uL (1.8-7.7); NEUTROPHILS % 54.3 % (36.0-66.0); PLATELET COUNT, AUTOMATED 203 10^3/uL (150-450); RED BLOOD COUNT 3.27 10^6/uL (4.00-5.40); RED CELL DISTRIBUTION WIDTH 12.8 % (11.5-14.5); WHITE BLOOD COUNT 5.8 10^3/uL (4.0-10.0)
[2017-08-11 07:53] LABS: ANION GAP 6 MEQ/L (8-16); BLOOD UREA NITROGEN 11 MG/DL (7-18); CALCIUM LEVEL 8.5 MG/DL (8.8-10.2); CARBON DIOXIDE LEVEL 29 MEQ/L (21-32); CHLORIDE LEVEL 109 MEQ/L (98-107); CREATININE FOR GFR 0.58 MG/DL (0.55-1.30); GLOMERULAR FILTRATION RATE > 60.0 (>32); GLUCOSE, FASTING 111 MG/DL (70-100); POTASSIUM SERUM 3.9 MEQ/L (3.5-5.1); SODIUM LEVEL 144 MEQ/L (136-145)
[2017-08-11] MEDS: oxyBUTYnin *DITROPAN XL* 5 MG TABCR PO (09:28)
[2017-08-11] MEDS: ATORVASTATIN 20 MG TAB PO (09:28)
[2017-08-11] MEDS: DULoxetine 30 MG CAP (CYMBALTA) PO ×2 (09:28→19:52)
[2017-08-11] MEDS: OMEPRAZOLE 20 MG CAP PO (09:29)
[2017-08-11] MEDS: ASPIRIN 81 MG ENTERIC TAB PO (09:29)
[2017-08-12] MEDS: HEPARIN SOD (PORCINE) 5000 UNITS/ML VIAL SC (05:39)
[2017-08-12 07:51] LABS: HEMATOCRIT 27.1 % (36.0-47.0); MEAN CORPUSCULAR HEMOGLOBIN 29.6 pg (27.0-33.0); MEAN CORPUSCULAR HGB CONC 33.2 g/dl (32.0-36.5); MEAN CORPUSCULAR VOLUME 89.1 fl (80.0-96.0); PLATELET COUNT, AUTOMATED 181 10^3/uL (150-450); RED BLOOD COUNT 3.04 10^6/uL (4.00-5.40); RED CELL DISTRIBUTION WIDTH 12.9 % (11.5-14.5); WHITE BLOOD COUNT 6.4 10^3/uL (4.0-10.0)
[2017-08-12 08:23] LABS: ANION GAP 5 MEQ/L (8-16); BLOOD UREA NITROGEN 23 MG/DL (7-18); CALCIUM LEVEL 8.3 MG/DL (8.8-10.2); CARBON DIOXIDE LEVEL 31 MEQ/L (21-32); CHLORIDE LEVEL 108 MEQ/L (98-107); CREATININE FOR GFR 0.53 MG/DL (0.55-1.30); GLOMERULAR FILTRATION RATE > 60.0 (>32); GLUCOSE, FASTING 117 MG/DL (70-100); MAGNESIUM LEVEL 1.8 MG/DL (1.8-2.4); POTASSIUM SERUM 3.6 MEQ/L (3.5-5.1); SODIUM LEVEL 144 MEQ/L (136-145)
[2017-08-12] MEDS: ATORVASTATIN 20 MG TAB PO (08:47)
[2017-08-12] MEDS: ASPIRIN 81 MG ENTERIC TAB PO (08:48)
[2017-08-12] MEDS: OMEPRAZOLE 20 MG CAP PO (08:48)
[2017-08-12] MEDS: oxyBUTYnin *DITROPAN XL* 5 MG TABCR PO (08:48)
[2017-08-12] MEDS: DULoxetine 30 MG CAP (CYMBALTA) PO (08:48)
== END 2017-08-12 11:00 ==
LOC: M MS5PR 23:30 → M ED 18:23 → M ED INP 21:19
PROVIDERS: Hospitalist
DX: R45.851 Suicidal ideations (principal); F32.9 Major depressive disorder, single episode, unspecified; E78.5 Hyperlipidemia, unspecified; Z86.73 Personal history of transient ischemic attack (TIA), and cerebral infarction without residual deficits; R41.82 Altered mental status, unspecified; K21.9 Gastro-esophageal reflux disease without esophagitis; Z79.899 Other long term (current) drug therapy; Z79.82 Long term (current) use of aspirin; Z91.128 Patient's intentional underdosing of medication regimen for other reason; Z63.0 Problems in relationship with spouse or partner; Z87.891 Personal history of nicotine dependence

== ENCOUNTER 2017-08-12 11:00 | Inpatient (IN) | payer MEDICARE, OTHER ==
[2017-08-12] MEDS ORDERED: DULoxetine 30 MG CAP (CYMBALTA) PO (21:00)
[2017-08-12] MEDS: DULoxetine 30 MG CAP (CYMBALTA) PO (21:16)
[2017-08-13] MEDS: oxyBUTYnin *DITROPAN XL* 5 MG TABCR PO (09:00)
[2017-08-13] MEDS: ASPIRIN 81 MG ENTERIC TAB PO (09:05)
[2017-08-13] MEDS: OMEPRAZOLE 20 MG CAP PO (09:05)
[2017-08-13] MEDS: DULoxetine 20 MG CAP (CYMBALTA) PO ×2 (09:06→20:18)
[2017-08-13] MEDS: ATORVASTATIN 20 MG TAB PO (20:18)
[2017-08-14] MEDS: DULoxetine 20 MG CAP (CYMBALTA) PO (09:34)
[2017-08-14] MEDS: ASPIRIN 81 MG ENTERIC TAB PO (09:34)
[2017-08-14] MEDS: OMEPRAZOLE 20 MG CAP PO (09:34)
[2017-08-14] MEDS: oxyBUTYnin *DITROPAN XL* 5 MG TABCR PO (09:34)
[2017-08-14 10:56] LABS: HEMATOCRIT 33.7 % (36.0-47.0); HEMOGLOBIN 11.1 g/dl (12.0-15.5); MEAN CORPUSCULAR HEMOGLOBIN 29.4 pg (27.0-33.0); MEAN CORPUSCULAR HGB CONC 32.9 g/dl (32.0-36.5); MEAN CORPUSCULAR VOLUME 89.4 fl (80.0-96.0); PLATELET COUNT, AUTOMATED 233 10^3/uL (150-450); RED BLOOD COUNT 3.77 10^6/uL (4.00-5.40)
[2017-08-14 11:26] LABS: FOLATE 19.4 NG/ML (>5.4); VITAMIN B12 LEVEL 486 PG/ML (247-911)
[2017-08-14 11:27] LABS: ALBUMIN 3.5 GM/DL (3.2-5.2); ALBUMIN/GLOBULIN RATIO 1.06 (1.00-1.93); ALKALINE PHOSPHATASE 65 U/L (45-117); ALT/SGPT 22 U/L (12-78); ANION GAP 7 MEQ/L (8-16); AST/SGOT 18 U/L (7-37); BILIRUBIN,TOTAL 0.5 MG/DL (0.2-1.0); BLOOD UREA NITROGEN 19 MG/DL (7-18); CALCIUM LEVEL 8.9 MG/DL (8.8-10.2); CARBON DIOXIDE LEVEL 31 MEQ/L (21-32); CHLORIDE LEVEL 102 MEQ/L (98-107); CREATININE FOR GFR 0.57 MG/DL (0.55-1.30); FERRITIN 52 NG/ML (8-252); GLOMERULAR FILTRATION RATE > 60.0 (>32); GLUCOSE, FASTING 111 MG/DL (70-100); IRON (FE) 57 UG/DL (50-170); PERCENT SATURATION 14.9 % (13.2-45.0); POTASSIUM SERUM 3.9 MEQ/L (3.5-5.1); SODIUM LEVEL 140 MEQ/L (136-145); TOTAL IRON BINDING CAPACITY 383 UG/DL (250-450); TOTAL PROTEIN 6.8 GM/DL (6.4-8.2)
[2017-08-14 12:58] LABS: ESTIMATED AVERAGE GLUCOSE 105 MG/DL (60-110); HEMOGLOBIN A1c 5.3 %
== END 2017-08-14 15:30 | disposition home or self-care (01) | DRG 885 ==
LOC: M PSY 11:00
DX: F33.2 Major depressive disorder, recurrent severe without psychotic features (principal); R45.851 Suicidal ideations; E78.5 Hyperlipidemia, unspecified; Z86.73 Personal history of transient ischemic attack (TIA), and cerebral infarction without residual deficits; K21.9 Gastro-esophageal reflux disease without esophagitis; Z79.899 Other long term (current) drug therapy; Z79.82 Long term (current) use of aspirin; Z88.5 Allergy status to narcotic agent; Z88.0 Allergy status to penicillin; Z88.2 Allergy status to sulfonamides; Z91.040 Latex allergy status; D64.9 Anemia, unspecified

== ENCOUNTER → 2018-01-21 | Outpatient (REF) | payer MEDICARE, OTHER ==
[2018-01-22 11:33] LABS: BASO % 0.3 % (0.0-1.0); EOS # 0.1 10^3/uL (0.0-0.50); EOS % 0.9 % (0.0-3.0); HEMATOCRIT 33.9 % (36.0-47.0); HEMOGLOBIN 11.1 g/dl (12.0-15.5); IMMATURE GRANULOCYTE % 0.1 % (0-3.0); LYMPH # 1.7 10^3/uL (1.5-4.5); MEAN CORPUSCULAR HEMOGLOBIN 29.6 pg (27.0-33.0); MEAN CORPUSCULAR HGB CONC 32.7 g/dl (32.0-36.5); MEAN CORPUSCULAR VOLUME 90.4 fl (80.0-96.0); MONO # 0.5 10^3/uL (0.0-0.8); MONO % 6.8 % (0.0-5.0); NEUTROPHILS # 4.7 10^3/uL (1.8-7.7); NEUTROPHILS % 67.9 % (36.0-66.0); PLATELET COUNT, AUTOMATED 206 10^3/uL (150-450); RED BLOOD COUNT 3.75 10^6/uL (4.00-5.40)
[2018-01-22 12:04] LABS: ALBUMIN 3.8 GM/DL (3.2-5.2); ALBUMIN/GLOBULIN RATIO 1.12 (1.00-1.93); ALKALINE PHOSPHATASE 81 U/L (45-117); ALT/SGPT 32 U/L (12-78); ANION GAP 9 MEQ/L (8-16); AST/SGOT 27 U/L (7-37); BILIRUBIN,TOTAL 0.8 MG/DL (0.2-1.0); BLOOD UREA NITROGEN 30 MG/DL (7-18); CALCIUM LEVEL 8.9 MG/DL (8.8-10.2); CARBON DIOXIDE LEVEL 28 MEQ/L (21-32); CHLORIDE LEVEL 104 MEQ/L (98-107); CREATININE FOR GFR 0.81 MG/DL (0.55-1.30); FREE T4 1.01 NG/DL (0.76-1.46); GLOMERULAR FILTRATION RATE > 60.0 (>32); GLUCOSE, FASTING 146 MG/DL (70-100); IRON (FE) 79 UG/DL (50-170); POTASSIUM SERUM 3.9 MEQ/L (3.5-5.1); SODIUM LEVEL 141 MEQ/L (136-145); THYROID STIMULATING HORMONE 0.926 uIU/ML (0.358-3.740); TOTAL PROTEIN 7.2 GM/DL (6.4-8.2)
== END ==
LOC: M SFHCCLAY 14:21
DX: R23.8 Other skin changes (principal); D64.9 Anemia, unspecified; R23.2 Flushing
CPT/HCPCS: 83540

== ENCOUNTER 2018-03-25 17:13 | Inpatient (IN) | payer MEDICARE, OTHER ==
[~2018-03-25] VITALS: Ht 157.5 cm; Wt 48.6 kg
[~2018-03-25 17:13] MED LIST changes: +ASPI1TAB PO; +CYMB1CAP4 PO; +PATIENT COMMENTS
[2018-03-25 17:52] LABS: HEMATOCRIT 34.8 % (36.0-47.0); HEMOGLOBIN 11.5 g/dl (12.0-15.5); MEAN CORPUSCULAR HEMOGLOBIN 29.6 pg (27.0-33.0); MEAN CORPUSCULAR VOLUME 89.7 fl (80.0-96.0); PLATELET COUNT, AUTOMATED 228 10^3/uL (150-450); RED BLOOD COUNT 3.88 10^6/uL (4.00-5.40); WHITE BLOOD COUNT 5.1 10^3/uL (4.0-10.0)
[2018-03-25] MEDS ORDERED: B121000T PO (18:24)
[2018-03-25] MEDS ORDERED: VITA200038 PO (18:24)
[2018-03-25] MEDS ORDERED: [UNRECOGNIZED DRUG - OTHER] PO (18:24)
[2018-03-25] MEDS ORDERED: MOVE1TAB PO (18:24)
[2018-03-25] MEDS ORDERED: CALCCHW18 PO (18:24)
[2018-03-25] MEDS ORDERED: DULO1CAP3 PO (18:24)
[2018-03-25 18:33] LABS: ACETAMINOPHEN LEVEL < 2.0 UG/ML (10.0-30.0); ALBUMIN 3.5 GM/DL (3.2-5.2); ALT/SGPT 21 U/L (12-78); BILIRUBIN,DIRECT 0.1 MG/DL (0.0-0.2); BILIRUBIN,TOTAL 0.4 MG/DL (0.2-1.0); BLOOD UREA NITROGEN 16 MG/DL (7-18); CALCIUM LEVEL 9.1 MG/DL (8.8-10.2); CARBON DIOXIDE LEVEL 30 MEQ/L (21-32); CHLORIDE LEVEL 104 MEQ/L (98-107); CREATININE FOR GFR 0.78 MG/DL (0.55-1.30); ETHYL ALCOHOL (ETHANOL) < 0.003 % (0.000-0.010); GLOMERULAR FILTRATION RATE > 60.0 (>32); GLUCOSE, FASTING 126 MG/DL (70-100); POTASSIUM SERUM 3.8 MEQ/L (3.5-5.1); SALICYLATE LEVEL < 1.7 MG/DL (5.0-30.0); SODIUM LEVEL 140 MEQ/L (136-145); THYROID STIMULATING HORMONE 0.886 uIU/ML (0.358-3.740); TOTAL PROTEIN 7.1 GM/DL (6.4-8.2)
[2018-03-25] MEDS: ATORVASTATIN 20 MG TAB PO SCH (21:00)
[2018-03-25] MEDS ORDERED: ACETAMINOPHEN TAB 650MG DOSE (2X325MG) PO ONE (21:15)
[2018-03-25] MEDS ORDERED: traZODone 50 MG TAB PO PRN (21:30)
[2018-03-25] MEDS ORDERED: MOM 30ML SUSPENSION UDC PO PRN (21:30)
[2018-03-25] MEDS ORDERED: ACETAMINOPHEN TAB 650MG DOSE (2X325MG) PO PRN (21:30)
[2018-03-25] MEDS ORDERED: MAALOX 30 ML SUSP *UDC PO PRN (21:30)
[2018-03-25] MEDS ORDERED: VITA10002 PO (21:34)
[2018-03-25] MEDS ORDERED: REST0.05 OU (21:34)
[2018-03-25] MEDS ORDERED: VITA200015 PO (21:34)
[2018-03-25] MEDS ORDERED: OXYB10TA PO (21:34)
[2018-03-25 22:05] LABS: LITHIUM LEVEL < 0.20 MEQ/L (0.60-1.20); VALPROIC ACID (DEPAKOTE) 7.5 UG/ML (50.0-100.0)
[2018-03-26 00:57] VITALS: BP 132/76
[2018-03-26] MEDS ORDERED: DULoxetine 30 MG CAP (CYMBALTA) PO SCH (09:00)
[2018-03-26] MEDS: oxyBUTYnin *DITROPAN XL* 5 MG TABCR PO SCH (09:00)
[2018-03-26] MEDS: VITAMIN D 1,000 INTERNATIONAL UNITS TABLET PO SCH (09:00)
[2018-03-26] MEDS: CYANOCOBALAMIN 500 MCG TAB PO SCH (09:00)
--- NOTE | 2018-03-26 09:32 | HPEPDOC ---
[facility] Medical History & Physical Date of Admission Mar 25, 2018 History and Physical PCP: Kylah Abreu NP ATTENDING: Dr. Farrah Das HPI: 82 yo F admitted to [facility] for unspecified depressive disorder, being medically examined today. No acute medical complaints today. The patient states she is steady on her feet and ambulating without any brianna rns, she is using a wheeled walker as needed. The patient denies any recent falls. Denies any fevers, chills, weakness, fatigue, CHEN, CP, SOB, cough, palpitations, abdominal pain, N/V/D or changes in bowel or bladder habits. PAST MEDICAL HISTORY: Depression. Anxiety History of SI Dyslipidemia. History of CVA. Unsteady gait. Uses wheeled walker. OAB GERD PAST SURGICAL HISTORY: Tonsillectomy, appendectomy. SOCHX: Resides in: [facility] Marital Status: , her lives in [place] Kids: 2 Tobacco use: Denies ETOH: Denies Illicit Drugs: Denies FAMHX: Mother , CVA Father , stomach cancer Siblings: None Children: Alive, history of breast cancer ROS: As noted in HPI, otherwise 11pt ROS of systems reviewed and unremarkable. PE: GEN: 81 yo F, appears stated age. Well-nourished, well developed. No acute distress. Alert and oriented x 3. Pleasant, interactive. HEENT: Normocephalic, atraumatic. Pupils are equal, round, and reactive to light. Extraocular movements are intact. No nystagmus appreciated. Sclera are nonicteric. Conjunctiva without injection. Nose midline. Nasal turbinates without bogginess. EACs both patent BL. TMs both visualized and severino with good cone of light, no bulging or erythema. No facial asymmetry. Moist mucous membranes. Dentition fair. Pharynx pink and moist, no cobblestoning. Neck supple, trachea midline. No lymphadenopathy or thyromegaly appreciated. CHEST: Regular rate and rhythm, +S1, +S2 LUNGS: Clear to auscultation bilaterally. No wheezes, rales, or rhonchi. Breathing appears symmetric and easy. Patient is speaking in full sentences. No accessory muscle use. ABD: Round, soft, non-tender, non-distended. +Bowel sounds throughout. No rebound or guarding. No costovertebral angle tenderness. EXT: Pulses 2+ bilaterally dorsalis pedis and radial. No lower extremity edema appreciated. SKIN: [place], dry, warm. Capillary refill <2sec. No rashes. NEURO: Alert and oriented x 3. Cranial nerves III-XII are intact. No focal deficits appreciated. The patient is ambulating with her walker, she appears steady on her feet. EKG: Pending A&P: 82 yo F admitted to [facility] for unspecified depressive disorder 1. Psych. Plan per Psychiatry. Obtain baseline EKG to assure the safety of psychiatric medications as they can prolong the QT interval. 2. Dyslipidemia. Continue Lipitor 40 mg by mouth daily. 3. History of CVA. Continue statin. 4. Follow up with PCP on discharge. 5. GERD. Continue Prilosec 20 mg by mouth daily. 6. OAB. Continue oxybutynin 10 mg by mouth daily. 7. Mild anemia. Appears to be at baseline of 9-11. CBC in a.m. Iron studies, B12, folate and a.m. FOB Monitor. 8. Elevated glucose. Hemoglobin A1c is noted to be 5.24 Jul 2017. 9. Staff member Bridget POP present throughout exam. Vital Signs Vital Signs Date Time Temp Pulse Resp B/P (MAP) Pulse Ox O2 Delivery O2 Flow Rate FiO2 03/26/18 00:57 98.4 90 16 132/76 (94) Room Air 03/26/18 00:25 100 Laboratory Data Labs 24H Laboratory Tests 2 03/25/18 17:39: Nucleated Red Blood Cells % (auto) 0.0, Anion Gap 6L, Glomerular Filtration Rate > 60.0, Calcium Level 9.1, Aspartate Amino Transf (AST/SGOT) 23, Alanine Aminotr ansferase (ALT/SGPT) 21, Alkaline Phosphatase 77, Total Bilirubin 0.4, Direct Bilirubin 0.1, Total Protein 7.1, Albumin 3.5, Albumin/Globulin Ratio 0.97L, Thyroid Stimulating Hormone (TSH) 0.886, Salicylates Level < 1.7L, Acetaminophen Level < 2.0L, Valproic Acid (Depakene) Level 7.5L, [place] Level < 0.20L, Ethyl Alcohol Level < 0.003 CBC/BMP Laboratory Tests 03/25/18 17:39 Red Blood Count 3.88 L, Mean Corpuscular Volume 89.7, Mean Corpuscular Hemoglobin 29.6, Mean Corpuscular Hemoglobin Concent 33.0, Red Cell Distribution Width 13.0 Home Medications Scheduled (Calcium Gummies 250-100-500 mg-Unit) 1 Chw Chw, 1 CHW PO TID (Move Free Joint Health Ad) 1 Tab Tab, 1 TAB PO TID (Restasis) 0.05 % Emu, 1 DROP OU BID Atorvastatin Calcium (Atorvastatin Calcium) 40 Mg Tab, 40 MG PO QHS Cholecalciferol (Vitamin D) 2,000 Unit Tab, 2,000 UNIT PO DAILY Cyanocobalamin (Vitamin B-12) 1,000 Mcg Tab, 1,000 MCG PO DAILY Duloxetine Hcl (Duloxetine HCl) 60 Mg Cap, 60 MG PO DAILY Omeprazole (Omeprazole) 20 Mg Cap, 20 MG PO DAILY Oxybutynin Chloride (Oxybutynin Chloride ER) 10 Mg Tab, 10 MG PO DAILY Allergies Coded Allergies: Cheese (Verified Allergy, Unknown, 03/25/18) sharp/aged Codeine (Verified Allergy, Unknown, 03/25/18) Latex (Verified Allergy, Unknown, 03/25/18) Penicillins (Verified Allergy, Unknown, HIVES, 03/25/18) Penicillins Cross Reactors (Verified Allergy, Unknown, HIVES, 03/25/18) Shellfish Allergy (Verified Allergy, Unknown, 03/25/18) Sulfa Drugs (Verified Allergy, Unknown, 03/25/18) Sulfa Drugs Cross Reactors (Verified Allergy, Unknown, 03/25/18) Tetracycline (Verified Allergy, Unknown, 03/25/18) Tuna (Verified Allergy, Unknown, 03/25/18) Lizzie Melgar Mar 26, 2018 09:31
[2018-03-26] MEDS: OMEPRAZOLE 20 MG CAP PO SCH (10:04)
[2018-03-26] MEDS: CALCIUM GUMMY PO SCH ×3 (10:39→21:50)
[2018-03-26] MEDS: RESTASIS 0.05% OU SCH ×2 (10:40→21:50)
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
[2018-03-26 18:00] VITALS: BP 163/74
--- NOTE | 2018-03-26 19:45 | ECGEPIP ---
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 Rule out prior septal injury. No significant change from 08/13/17 Electronically Signed On 03-26-2018 19:45:16 EST by Giuseppe Jerez
[2018-03-26] MEDS: ATORVASTATIN 20 MG TAB PO SCH (21:51)
[2018-03-27 06:35] VITALS: BP 144/66
[2018-03-27 08:42] LABS: HEMATOCRIT 30.5 % (36.0-47.0); MEAN CORPUSCULAR HEMOGLOBIN 29.2 pg (27.0-33.0); MEAN CORPUSCULAR HGB CONC 32.8 g/dl (32.0-36.5); MEAN CORPUSCULAR VOLUME 89.2 fl (80.0-96.0); PLATELET COUNT, AUTOMATED 210 10^3/uL (150-450); RED BLOOD COUNT 3.42 10^6/uL (4.00-5.40); WHITE BLOOD COUNT 6.4 10^3/uL (4.0-10.0)
[2018-03-27 09:09] LABS: PERCENT SATURATION 16.9 % (13.2-45.0)
--- NOTE | 2018-03-27 10:02 | MHIPNPDOC ---
[facility] Progress Note Progress Note DATE OF SERVICE: 03/27/18 HISTORY: Patient is a 82 -year-old , female, with a history of depressin and previous d/c [facility] 08/14/17 who was brought to ED by police after tell [facility] staff that she "feels lonely and wants to ." In ED pt stating she lives along and found the holidays difficult b/c she has no one to take care of her. Endorsed anhedonia, avolition (to feed/take care of staff), increased daytime sleep and insomnia, depression, passive SI (no plan or intent). She current takes cymbalta 60mg daily for mood and pain thru [facility]. She stated in the ED she has a DNR at home. Pt seen today and states "I just feel apart and couldn't take care of myself" due to lack of motivation. States she does think her cymbalta is helpful but not for avolition/anhedonia. Admits she's depressed. Agreeable to changing cymbalta to effexor xr for more beneficial treatment of depression, avolition, anxiety as usually is more potent than cymbalta in my experience regarding treatment for mood. (risks/benefits discussed) Endorses insomnia occasionally at home and takes melatonin as needed. Agreeable to trazodone prn insomnia here. Asked pt if she would think a home health aid checking on her per iodically would be beneficial as she states her biggest complaint is not having anyone to care for her. She states she would like that when d/c. She denies current SI/HI, hallucinations, delusions. States she feels safe here. VITAL SIGNS: See below. NEW TEST RESULTS: See below. CURRENT MEDICATIONS: See below. MENTAL STATUS EXAMINATION: General Appearance: well groomed, appears stated age, hospital scrubs/clothing, other (walks with walker) Build: average Demeanor: average, other (polite) Eye Contact: average Activity: slowed Behavior: cooperative, asking to be waited on thru out the day when she's able to do things on her own and encouraged to Speech: clear, slow Mood: less depressed Mood ok Affect: improved range, congruent Thought Process: logical/linear, depressed, intact Thought Content (Delusions): none reported, denies SI, HI, AVH Thought Content (Other): none reported, appropriate Thought Content (Aggressive): none reported Perception (Hallucinations): none reported Perception (Other): none reported Cognition (Impairment of): none reported Cognition(Intelligence Est.): average Oriented: Awake, Alert, Oriented times three Insight: fair Judgment: Fair Psychosis: Denies DIAGNOSES: 1. Major Depressive d/o recurrent, severe, without psychosis ASSESSMENT:Pt seen and states that her mood is better and that she's tolerating the effexor xr started yesterday, feels it's beneficial. Pt attempting to treat myself and staff like event staff member asking me to get her "a coffee black" as she was eating breakfast in bed this am. Told she must get it herself as she's capable of it. Pt asking for help at home as feels it too much for her to take care of herself. Per treatment team, has piles of laundry that needs to be washed among other things. Will get home health aid upon d/c for pt as appears to be what she wants most. Occassionally she's being social on the milieu and attending groups which is beneficial. States she slept well last night. Feels she is tolerating her medications and they're beneficial. She denies depression, anxiety, insomnia, SI/HI, hallucinations, delusions. Pt feels safe here. MANAGEMENT PLAN: continue current plan medications: effexor xr 150mg daily for mood TIME SPENT: 30 minutes. Vital Signs Vital Signs Date Time Temp Pulse Resp B/P (MAP) Pulse Ox O2 Delivery O2 Flow Rate FiO2 03/27/18 06:35 98.1 83 16 144/66 (92) Room Air 03/26/18 00:25 100 Laboratory Data 24H Labs Laboratory Tests 2 03/27/18 08:19: Nucleated Red Blood Cells % (auto) 0.0, Iron Level 55, Total Iron Binding Capacity 325, Transferrin % Saturation 16.9, Ferritin 49 CBC/BMP Laboratory Tests 03/27/18 08:19 Red Blood Count 3.42 L, Mean Corpuscular Volume 89.2, Mean Corpuscular Hemoglobin 29.2, Mean Corpuscular Hemoglobin Concent 32.8, Red Cell Distribution Width 12.8 Current Medications Current Medications Acetaminophen (Tylenol Tab) 650 mg Q6HP PRN PO HEADACHE or DISCOMFORT; Start 03/25/18 at 21:30 Al Hydrox/Mg Hydrox/Simethicone (Mylanta) 30 ml Q4HP PRN PO HEARTBURN/INDIGESTION; Start 03/25/18 at 21:30 Atorvastatin Calcium (Lipitor) 40 mg QHS PO Last administered on 03/26/18at 21:51; Start 03/25/18 at 21:00 Cyanocobalamin (Vitamin B12) 1,000 mcg DAILY PO ; Start 03/26/18 at 09:00 Duloxetine HCl (Cymbalta) 60 mg DAILY PO Last administered on 03/26/18at 10:03; Start 03/26/18 at 09:00; Stop 03/26/18 at 11:05; Status DC Home Med (Med Rec Complete!) ASDIRECTED XX ; Start 03/25/18 at 21:45; Stop 03/25/18 at 21:45; Status DC Magnesium Hydroxide (Milk Of Magnesia) 30 ml DAILYPRN PRN PO CONSTIPATION; Start 03/25/18 at 21:30 Miscellaneous (Unresolved Patient Own Med Order) SEE LABEL COMMENTS DAILY XX ; Start 03/25/18 at 09:00 Omeprazole (PriLOSEC) 20 mg DAILY PO Last administered on 03/26/18at 10:04; Start 03/26/18 at 09:00 Oxybutynin Chloride (Ditropan Xl) 10 mg DAILY PO ; Start 03/26/18 at 09:00 Patient Own Medication (Patient'S Own Med) Calcium Gummies Chewa... TID PO Last administered on 03/26/18at 21:50; Start 03/26/18 at 09:00 Patient Own Medication (Patient'S Own Med) Restasis 0.05% gtts INSTILL 1 DROP IN B... BID OU Last administered on 03/26/18at 21:50; Start 03/26/18 at 09:00 Trazodone HCl (Desyrel) 50 mg QHSP PRN PO INSOMNIA; Start 03/25/18 at 21:30 Venlafaxine HCl (Effexor Xr) 150 mg DAILY PO ; Start 03/27/18 at 09:00 Vitamin D (Vitamin D) 2,000 units DAILY PO ; Start 03/26/18 at 09:00 Allergies Coded Allergies: Cheese (Verified Allergy, Unknown, 03/25/18) sharp/aged Codeine (Verified Allergy, Unknown, 03/25/18) Latex (Verified Allergy, Unknown, 03/25/18) Penicillins (Verified Allergy, Unknown, HIVES, 03/25/18) Penicillins Cross Reactors (Verified Allergy, Unknown, HIVES, 03/25/18) Shellfish Allergy (Verified Allergy, Unknown, 03/25/18) Sulfa Drugs (Verified Allergy, Unknown, 03/25/18) Sulfa Drugs Cross Reactors (Verified Allergy, Unknown, 03/25/18) Tetracycline (Verified Allergy, Unknown, 03/25/18) Tuna (Verified Allergy, Unknown, 03/25/18) CARROL DE LA CRUZ DO Mar 27, 2018 10:02 am
[2018-03-27] MEDS: VITAMIN D 1,000 INTERNATIONAL UNITS TABLET PO SCH (10:07)
[2018-03-27] MEDS: CYANOCOBALAMIN 500 MCG TAB PO SCH (10:07)
[2018-03-27] MEDS: VENLAFAXINE **XR** 75MG CAPSULE PO SCH (10:07)
[2018-03-27] MEDS: CALCIUM GUMMY PO SCH ×3 (10:08→20:53)
[2018-03-27] MEDS: RESTASIS 0.05% OU SCH ×2 (10:08→21:58)
[2018-03-27] MEDS: OMEPRAZOLE 20 MG CAP PO SCH (10:08)
[2018-03-27] MEDS: oxyBUTYnin *DITROPAN XL* 5 MG TABCR PO SCH (10:08)
[2018-03-27 10:42] LABS: FOLATE 13.8 NG/ML (>5.4)
[2018-03-27 18:00] VITALS: BP 142/65
[2018-03-27] MEDS: ATORVASTATIN 20 MG TAB PO SCH (20:51)
[2018-03-28 06:41] VITALS: BP 130/63
--- NOTE | 2018-03-28 09:16 | MHIPNPDOC ---
[facility] Progress Note Progress Note DATE OF SERVICE: 03/28/18 HISTORY: Patient is a 82 -year-old , female, with a history of depressin and previous d/c [facility] 08/14/17 who was brought to ED by police after tell [facility] staff that she "feels lonely and wants to ." In ED pt stating she lives along and found the holidays difficult b/c she has no one to take care of her. Endorsed anhedonia, avolition (to feed/take care of staff), increased daytime sleep and insomnia, depression, passive SI (no plan or intent). She current takes cymbalta 60mg daily for mood and pain thru [facility]. She stated in the ED she has a DNR at home. Pt seen today and states "I just feel apart and couldn't take care of myself" due to lack of motivation. States she does think her cymbalta is helpful but not for avolition/anhedonia. Admits she's depressed. Agreeable to changing cymbalta to effexor xr for more beneficial treatment of depression, avolition, anxiety as usually is more potent than cymbalta in my experience regarding treatment for mood. (risks/benefits discussed) Endorses insomnia occasionally at home and takes melatonin as needed. Agreeable to trazodone prn insomnia here. Asked pt if she would think a home health aid checking on her periodically would be beneficial as she states her biggest complaint is not having anyone to care for her. She states she would like that when d/c. She denies current SI/HI, hallucinations, delusions. States she feels safe here. VITAL SIGNS: See below. NEW TEST RESULTS: See below. CURRENT MEDICATIONS: See below. MENTAL STATUS EXAMINATION: General Appearance: well groomed, appears stated age, hospital scrubs/clothing, other (walks with walker) Build: average Demeanor: average, other (polite) Eye Contact: average Activity: slowed Behavior: cooperative Speech: clear, slow Mood: less depressed Mood ok Affect: improved range, congruent Thought Process: logical/linear, less depressed, intact Thought Content (Delusions): none reported, denies SI, HI, AVH Thought Content (Other): none reported, appropriate Thought Content (Aggressive): none reported Perception (Hallucinations): none reported Perception (Other): none reported Cognition (Impairment of): none reported Cognition(Intelligence Est.): average Oriented: Awake, Alert, Oriented times three Insight: fair Judgment: Fair Psychosis: Denies DIAGNOSES: 1. Major Depressive d/o recurrent, severe, without psychosis ASSESSMENT:Pt seen and states that her mood is better and that she's tolerating the effexor xr started yesterday, feels it's beneficial. Less asking staff and myself to do everything for her. Planning to get home health aid upon d/c for pt as appears to be what she wants most. Occasionally she's being social on the milieu and attending groups which is beneficial. States she slept well last night. Feels she is tolerating her medications and they're beneficial. She denies depression, anxiety, insomnia, SI/HI, hallucinations, delusions. Pt feels safe here. MANAGEMENT PLAN: continue current plan medications: effexor xr 150mg daily for mood TIME SPENT: 30 minutes. Vital Signs Vital Signs Date Time Temp Pulse Resp B/P (MAP) Pulse Ox O2 Delivery O2 Flow Rate FiO2 03/28/18 06:41 97.9 72 18 130/63 (85) 03/27/18 06:35 Room Air 03/26/18 00:25 100 Current Medications Current Medications Acetaminophen (Tylenol Tab) 650 mg Q6HP PRN PO HEADACHE or DISCOMFORT; Start 03/25/18 at 21:30 Al Hydrox/Mg Hydrox/Simethicone (Mylanta) 30 ml Q4HP PRN PO HEARTBURN/INDIGESTION; Start 03/25/18 at 21:30 Atorvastatin Calcium (Lipitor) 40 mg QHS PO Last administered on 03/27/18at 20:51; Start 03/25/18 at 21:00 Cyanocobalamin (Vitamin B12) 1,000 mcg DAILY PO Last administered on 03/27/18at 10:07; Start 03/26/18 at 09:00 Duloxetine HCl (Cymbalta) 60 mg DAILY PO Last administered on 03/26/18at 10:03; Start 03/26/18 at 09:00; Stop 03/26/18 at 11:05; Status DC Home Med (Med Rec Complete!) ASDIRECTED XX ; Start 03/25/18 at 21:45; Stop 03/25/18 at 21:45; Status DC Magnesium Hydroxide (Milk Of Magnesia) 30 ml DAILYPRN PRN PO CONSTIPATION; Start 03/25/18 at 21:30 Miscellaneous (Unresolved Patient Own Med Order) SEE LABEL COMMENTS DAILY XX ; Start 03/25/18 at 09:00; Stop 03/27/18 at 09:55; Status DC Omeprazole (PriLOSEC) 20 mg DAILY PO Last administered on 03/27/18 10:08; Start 03/26/18 at 09:00 Oxybutynin Chloride (Ditropan Xl) 10 mg DAILY PO Last administered on 03/27/18 10:08; Start 03/26/18 at 09:00 Patient Own Medication (Patient'S Own Med) Calcium Gummies Chewa... TID PO Last administered on 03/27/18 20:53; Start 03/26/18 at 09:00 Patient Own Medication (Patient'S Own Med) Restasis 0.05% gtts INSTILL 1 DROP IN B... BID OU Last administered on 03/27/18 21:58; Start 03/26/18 at 09:00 Trazodone HCl (Desyrel) 50 mg QHSP PRN PO INSOMNIA; Start 03/25/18 at 21:30 Venlafaxine HCl (Effexor Xr) 150 mg DAILY PO Last administered on 03/27/18 10:07; Start 03/27/18 at 09:00 Vitamin D (Vitamin D) 2,000 units DAILY PO Last administered on 03/27/18 10:07; Start 03/26/18 at 09:00 Allergies Coded Allergies: Cheese (Verified Allergy, Unknown, 03/25/18) sharp/aged Codeine (Verified Allergy, Unknown, 03/25/18) Latex (Verified Allergy, Unknown, 03/25/18) Penicillins (Verified Allergy, Unknown, HIVES, 03/25/18) Penicillins Cross Reactors (Verified Allergy, Unknown, HIVES, 03/25/18) Shellfish Allergy (Verified Allergy, Unknown, 03/25/18) Sulfa Drugs (Verified Allergy, Unknown, 03/25/18) Sulfa Drugs Cross Reactors (Verified Allergy, Unknown, 03/25/18) Tetracycline (Verified Allergy, Unknown, 03/25/18) Tuna (Verified Allergy, Unknown, 03/25/18) CARROL DE LA CRUZ DO Mar 28, 2018 9:16 am
[2018-03-28] MEDS: oxyBUTYnin *DITROPAN XL* 5 MG TABCR PO SCH (09:41)
[2018-03-28] MEDS: OMEPRAZOLE 20 MG CAP PO SCH (09:41)
[2018-03-28] MEDS: VENLAFAXINE **XR** 75MG CAPSULE PO SCH (09:41)
[2018-03-28] MEDS: VITAMIN D 1,000 INTERNATIONAL UNITS TABLET PO SCH (09:41)
[2018-03-28] MEDS: CYANOCOBALAMIN 500 MCG TAB PO SCH (09:41)
[2018-03-28] MEDS: RESTASIS 0.05% OU SCH ×2 (09:42→21:00)
[2018-03-28] MEDS: CALCIUM GUMMY PO SCH ×3 (09:42→21:00)
[2018-03-28 18:00] VITALS: BP 113/56
[2018-03-28] MEDS: ATORVASTATIN 20 MG TAB PO SCH (21:00)
[2018-03-29 06:40] VITALS: BP 152/74
[2018-03-29 07:02] LABS: BASO % 0.2 % (0.0-1.0); EOS # 0.1 10^3/uL (0.0-0.50); EOS % 1.5 % (0.0-3.0); HEMATOCRIT 28.5 % (36.0-47.0); HEMOGLOBIN 9.6 g/dl (12.0-15.5); LYMPH # 2.9 10^3/uL (1.5-4.5); LYMPH % 36.2 % (24.0-44.0); MEAN CORPUSCULAR HEMOGLOBIN 29.7 pg (27.0-33.0); MEAN CORPUSCULAR HGB CONC 33.7 g/dl (32.0-36.5); MEAN CORPUSCULAR VOLUME 88.2 fl (80.0-96.0); MONO # 0.7 10^3/uL (0.0-0.8); MONO % 8.5 % (0.0-5.0); NEUTROPHILS # 4.3 10^3/uL (1.8-7.7); NEUTROPHILS % 53.4 % (36.0-66.0); PLATELET COUNT, AUTOMATED 208 10^3/uL (150-450); RED BLOOD COUNT 3.23 10^6/uL (4.00-5.40); WHITE BLOOD COUNT 8.1 10^3/uL (4.0-10.0)
[2018-03-29] MEDS: VENLAFAXINE **XR** 75MG CAPSULE PO SCH (09:51)
[2018-03-29] MEDS: VITAMIN D 1,000 INTERNATIONAL UNITS TABLET PO SCH (09:51)
[2018-03-29] MEDS: oxyBUTYnin *DITROPAN XL* 5 MG TABCR PO SCH (09:51)
[2018-03-29] MEDS: OMEPRAZOLE 20 MG CAP PO SCH (09:51)
[2018-03-29] MEDS: RESTASIS 0.05% OU SCH ×2 (09:51→21:59)
[2018-03-29] MEDS: CALCIUM GUMMY PO SCH ×3 (09:51→21:58)
[2018-03-29] MEDS: CYANOCOBALAMIN 500 MCG TAB PO SCH (09:51)
--- NOTE | 2018-03-29 10:00 | MHIPNPDOC ---
[facility] Progress Note Progress Note DATE OF SERVICE: 03/29/18 HISTORY: Patient is a 82 -year-old , female, with a history of depressin and previous d/c [facility] 08/14/17 who was brought to ED by police after tell [facility] staff that she "feels lonely and wants to ." In ED pt stating she lives along and found the holidays difficult b/c she has no one to take care of her. Endorsed anhedonia, avolition (to feed/take care of staff), increased daytime sleep and insomnia, depression, passive SI (no plan or intent). She current takes cymbalta 60mg daily for mood and pain thru [facility]. She stated in the ED she has a DNR at home. Pt seen today and states "I just feel apart and couldn't take care of myself" due to lack of motivation. States she does think her cymbalta is helpful but not for avolition/anhedonia. Admits she's depressed. Agreeable to changing cymbalta to effexor xr for more beneficial treatment of depression, avolition, anxiety as usually is more potent than cymbalta in my experience regarding treatment for mood. (risks/benefits discussed) Endorses insomnia occasionally at home and takes melatonin as needed. Agreeable to trazodone prn insomnia here. Asked pt if she would think a home health aid checking on her per iodically would be beneficial as she states her biggest complaint is not having anyone to care for her. She states she would like that when d/c. She denies current SI/HI, hallucinations, delusions. States she feels safe here. VITAL SIGNS: See below. NEW TEST RESULTS: See below. CURRENT MEDICATIONS: See below. MENTAL STATUS EXAMINATION: General Appearance: well groomed, appears stated age, hospital scrubs/clothing, other (walks with walker) Build: average Demeanor: average, other (polite) Eye Contact: average Activity: slowed Behavior: cooperative Speech: clear, slow Mood: less depressed Mood ok Affect: improved range, congruent Thought Process: logical/linear, less depressed, intact Thought Content (Delusions): none reported, denies SI, HI, AVH Thought Content (Other): none reported, appropriate Thought Content (Aggressive): none reported Perception (Hallucinations): none reported Perception (Other): none reported Cognition (Impairment of): none reported Cognition(Intelligence Est.): average Oriented: Awake, Alert, Oriented times three Insight: fair Judgment: Fair Psychosis: Denies DIAGNOSES: 1. Major Depressive d/o recurrent, severe, without psychosis ASSESSMENT:Pt seen and states that her mood is good and that she's tolerating the effexor xr and feels it's beneficial. No longer asking staff and myself to do everything for her. Planning to get home health aid upon d/c for pt as appears to be what she wants most. Occasionally she's being social on the milieu and attending groups which is beneficial. States she slept well last night. Feels she is tolerating her medications and they're beneficial. She denies depression, anxiety, insomnia, SI/HI, hallucinations, delusions. Pt feels safe here. MANAGEMENT PLAN: continue current plan medications: effexor xr 150mg daily for mood TIME SPENT: 30 minutes. Vital Signs Vital Signs Date Time Temp Pulse Resp B/P (MAP) Pulse Ox O2 Delivery O2 Flow Rate FiO2 03/29/18 06:40 97.8 72 16 152/74 (100) 03/27/18 06:35 Room Air 03/26/18 00:25 100 Laboratory Data 24H Labs Laboratory Tests 2 03/29/18 06:41: Immature Granulocyte % (Auto) 0.2, White Blood Count 8.1, Red Blood Count 3.23L, Hemoglobin 9.6L, Hematocrit 28.5L, Mean Corpuscular Volume 88.2, Mean Corpuscular Hemoglobin 29.7, Mean Corpuscular Hemoglobin Concent 33.7, Red Cell Distribution Width 12.8, Platelet Count 208, Neutrophils (%) (Auto) 53.4, Lymphocytes (%) (Auto) 36.2, Monocytes (%) (Auto) 8.5H, Eosinophils (%) (Auto) 1.5, Basophils (%) (Auto) 0.2, Neutrophils # (Auto) 4.3, Lymphocytes # (Auto) 2.9, Monocytes # (Auto) 0.7, Eosinophils # (Auto) 0.1, Basophils # (Auto) 0.0, Nucleated Red Blood Cells % (auto) 0.0 CBC/BMP Laboratory Tests 03/29/18 06:41 Red Blood Count 3.23 L, Mean Corpuscular Volume 88.2, Mean Corpuscular Hemoglobin 29.7, Mean Corpuscular Hemoglobin Concent 33.7, Red Cell Distribution Width 12.8, Neutrophils (%) (Auto) 53.4, Lymphocytes (%) (Auto) 36.2, Monocytes (%) (Auto) 8.5 H, Eosinophils (%) (Auto) 1.5, Basophils (%) (Auto) 0.2, Neutrophils # (Auto) 4.3, Lymphocytes # (Auto) 2.9, Monocytes # (Auto) 0.7, Eosinophils # (Auto) 0.1, Basophils # (Auto) 0.0 Current Medications Current Medications Acetaminophen (Tylenol Tab) 650 mg Q6HP PRN PO HEADACHE or DISCOMFORT; Start 03/25/18 at 21:30 Al Hydrox/Mg Hydrox/Simethicone (Mylanta) 30 ml Q4HP PRN PO HEARTBURN/INDIGESTION; Start 03/25/18 at 21:30 Atorvastatin Calcium (Lipitor) 40 mg QHS PO Last administered on 03/27/18at 20:51; Start 03/25/18 at 21:00 Cyanocobalamin (Vitamin B12) 1,000 mcg DAILY PO Last administered on 03/29/18at 09:51; Start 03/26/18 at 09:00 Duloxetine HCl (Cymbalta) 60 mg DAILY PO Last administered on 03/26/18at 10:03; Start 03/26/18 at 09:00; Stop 03/26/18 at 11:05; Status DC Home Med (Med Rec Complete!) ASDIRECTED XX ; Start 03/25/18 at 21:45; Stop 03/25/18 at 21:45; Status DC Magnesium Hydroxide (Milk Of Magnesia) 30 ml DAILYPRN PRN PO CONSTIPATION; Start 03/25/18 at 21:30 Miscellaneous (Unresolved Patient Own Med Order) SEE LABEL COMMENTS DAILY XX ; Start 03/25/18 at 09:00; Stop 03/27/18 at 09:55; Status DC Omeprazole (PriLOSEC) 20 mg DAILY PO Last administered on 03/29/18at 09:51; Start 03/26/18 at 09:00 Oxybutynin Chloride (Ditropan Xl) 10 mg DAILY PO Last administered on 1/6/19at 09:51; Start 03/26/18 at 09:00 Patient Own Medication (Patient'S Own Med) Calcium Gummies Chewa... TID PO Last administered on 03/29/18 09:51; Start 03/26/18 at 09:00 Patient Own Medication (Patient'S Own Med) Restasis 0.05% gtts INSTILL 1 DROP IN B... BID OU Last administered on 03/29/18 09:51; Start 03/26/18 at 09:00 Trazodone HCl (Desyrel) 50 mg QHSP PRN PO INSOMNIA; Start 03/25/18 at 21:30 Venlafaxine HCl (Effexor Xr) 150 mg DAILY PO Last administered on 03/29/18 09:51; Start 03/27/18 at 09:00 Vitamin D (Vitamin D) 2,000 units DAILY PO Last administered on 03/29/18 09:51; Start 03/26/18 at 09:00 Allergies Coded Allergies: Cheese (Verified Allergy, Unknown, 03/25/18) sharp/aged Codeine (Verified Allergy, Unknown, 03/25/18) Latex (Verified Allergy, Unknown, 03/25/18) Penicillins (Verified Allergy, Unknown, HIVES, 03/25/18) Penicillins Cross Reactors (Verified Allergy, Unknown, HIVES, 03/25/18) Shellfish Allergy (Verified Allergy, Unknown, 03/25/18) Sulfa Drugs (Verified Allergy, Unknown, 03/25/18) Sulfa Drugs Cross Reactors (Verified Allergy, Unknown, 03/25/18) Tetracycline (Verified Allergy, Unknown, 03/25/18) Tuna (Verified Allergy, Unknown, 03/25/18) CARROL DE LA CRUZ DO Mar 29, 2018 10:00
[2018-03-29 18:00] VITALS: BP 132/62
[2018-03-29] MEDS: ATORVASTATIN 20 MG TAB PO SCH (21:58)
[2018-03-30 06:39] VITALS: BP 103/52
--- NOTE | 2018-03-30 09:12 | MHDSPDOC ---
[facility] Discharge Summary Discharge Summary DATE OF ADMISSION: Mar 25, 2018 at 9:26 pm DATE OF DISCHARGE: Mar 30, 2018 DISCHARGE DIAGNOSES: 1. Major Depressive d/o recurrent, severe, without psychosis REASON FOR ADMISSION: Patient is a 82 -year-old , female, with a history of depression and previous d/c [facility] 08/14/17 who was brought to ED by police after tell [facility] staff that she "feels lonely and wants to ." In ED pt stating she lives along and found the holidays difficult b/c she has no one to take care of her. Endorsed anhedonia, avolition (to feed/take care of staff), increased daytime sleep and insomnia, depression, passive SI (no plan or intent). She current takes cymbalta 60mg daily for mood and pain thru [facility]. She stated in the ED she has a DNR at home. Pt seen today and states "I just feel apart and couldn't take care of myself" due to lack of motivation. States she does think her cymbalta is helpful but not for avolition/anhedonia. Admits she's depressed. Agreeable to changing cymbalta to effexor xr for more beneficial treatment of depression, avolition, anxiety as usually is more potent than cymbalta in my experience regarding treatment for mood. (risks/benefits discussed) Endorses insomnia occasionally at home and takes melatonin as needed. Agreeable to trazodone prn insomnia here. Asked pt if she would think a home health aid checking on her periodically would be beneficial as she states her biggest complaint is not having anyone to care for her. She states she would like that when d/c. She denies current SI/HI, hallucinations, delusions. States she feels safe here. CONSULTANTS INVOLVED: none TREATMENT AND PROGRESS ON THE UNIT : Pt was admitted to [facility], seen for ps ychiatric assessment and her cymbalta was discontinued and she was started on effexor xr 150mg daily that she tolerated well and found beneficial. She was provided trazodone 50mg qhs prn insomnia. Pt found her medications beneficial and tolerated them well. Pt asked for a home health aid to help her at home, indicating that that is what she felt she needed most b/c taking care of herself at home was becoming difficult. She attended groups daily during her stay. Her symptoms improved with treatment. On day of discharge she denied depression, anxiety, insomnia, SI/HI, hallucinations, delusions. She was discharged home with follow-up at [facility]. She felt safe for discharge. DISCHARGE ASSESSMENT: Pt seen and states that her mood is good and that she's tolerating the effexor xr and feels it's beneficial. Looking forward to having home health aid upon d/c as appears to be what she wants most. Occasionally she's being social on the milieu and attending groups which is beneficial. States she slept well last night. Feels she is tolerating her medications and they're beneficial. She denies depression, anxiety, insomnia, SI/HI, hallucinations, delusions. Pt feels safe to be discharged home. MENTAL STATUS EXAMINATION ON DISCHARGE: General Appearance: well groomed, appears stated age, hospital scrubs/clothing, other (walks with walker) Build: average Demeanor: average, other (polite) Eye Contact: average Activity: slowed Behavior: cooperative Speech: clear, slow Mood: euthymic Mood good Affect: euthymic, full range, congruent Thought Process: logical/linear, Intact Thought Content (Delusions): none reported, denies SI, HI, AVH Thought Content (Other): none reported, appropriate Thought Content (Aggressive): none reported Perception (Hallucinations): none reported Perception (Other): none reported Cognition (Impairment of): none reported Cognition(Intelligence Est.): average Oriented: Awake, Alert, Oriented times three Insight: good Judgment: good Psychosis: Denies MEDICATIONS ON DISCHARGE: - effexor xr 150mg daily for mood PLAN/FOLLOWUP ARRANGEMENTS: d/c home with follow-up at [facility]. The amount of time spent in the coordination of care for this patient was approximately 30 minutes. Vital Signs/I&Os Vital Signs Date Time Temp Pulse Resp B/P (MAP) Pulse Ox O2 Delivery O2 Flow Rate FiO2 03/30/18 06:39 97.8 71 16 103/52 (69) 03/27/18 06:35 Room Air 03/26/18 00:25 100 Medications Scheduled (Calcium Gummies 250-100-500 mg-Unit) 1 Chw Chw, 1 CHW PO TID, (Reported) (Move Free Joint Health Ad) 1 Tab Tab, 1 TAB PO TID, (Reported) (Restasis) 0.05 % Emu, 1 DROP OU BID, (Reported) Atorvastatin Calcium (Atorvastatin Calcium) 40 Mg Tab, 40 MG PO QHS, (Reported) Cholecalciferol (Vitamin D) 2,000 Unit Tab, 2,000 UNIT PO DAILY, (Reported) Cyanocobalamin (Vitamin B-12) 1,000 Mcg Tab, 1,000 MCG PO DAILY, (Reported) Omeprazole (Omeprazole) 20 Mg Cap, 20 MG PO DAILY, (Reported) Oxybutynin Chloride (Oxybutynin Chloride ER) 10 Mg Tab, 10 MG PO DAILY, (Reported) Venlafaxine HCl (Venlafaxine HCl ER) 75 Mg Capcr, 150 MG PO DAILY for mood, #20 Scheduled PRN Trazodone HCl (Trazodone HCl) 50 Mg Tab, 50 MG PO QHSP PRN for INSOMNIA, #10 Allergies Coded Allergies: Cheese (Verified Allergy, Unknown, 03/25/18) sharp/aged Codeine (Verified Allergy, Unknown, 03/25/18) Latex (Verified Allergy, Unknown, 03/25/18) Penicillins (Verified Allergy, Unknown, HIVES, 03/25/18) Penicillins Cross Reactors (Verified Allergy, Unknown, HIVES, 03/25/18) Shellfish Allergy (Verified Allergy, Unknown, 03/25/18) Sulfa Drugs (Verified Allergy, Unknown, 03/25/18) Sulfa Drugs Cross Reactors (Verified Allergy, Unknown, 03/25/18) Tetracycline (Verified Allergy, Unknown, 03/25/18) Tuna (Verified Allergy, Unknown, 03/25/18) CARROL DE LA CRUZ DO Mar 30, 2018 9:12 am
[2018-03-30] MEDS ORDERED: VENL75CA47 PO (09:15)
[2018-03-30] MEDS ORDERED: TRAZO50TA PO (09:15)
[2018-03-30] MEDS: CALCIUM GUMMY PO SCH (09:38)
[2018-03-30] MEDS: RESTASIS 0.05% OU SCH (09:39)
[2018-03-30] MEDS: oxyBUTYnin *DITROPAN XL* 5 MG TABCR PO SCH (09:39)
[2018-03-30] MEDS: VENLAFAXINE **XR** 75MG CAPSULE PO SCH (09:40)
[2018-03-30] MEDS: CYANOCOBALAMIN 500 MCG TAB PO SCH (09:40)
[2018-03-30] MEDS: OMEPRAZOLE 20 MG CAP PO SCH (09:40)
[2018-03-30] MEDS: VITAMIN D 1,000 INTERNATIONAL UNITS TABLET PO SCH (09:40)
== END 2018-03-30 11:30 | disposition home or self-care (01) | DRG 885 ==
LOC: M ED 17:13 → M ED INP 21:26 → M PSY 03-26 00:40
PROVIDERS: ADMIT Psychiatry & Neurology Psychiatry; ATTEND Psychiatry & Neurology Psychiatry
DX: F33.2 Major depressive disorder, recurrent severe without psychotic features (principal); E78.5 Hyperlipidemia, unspecified; R26.81 Unsteadiness on feet; K21.9 Gastro-esophageal reflux disease without esophagitis; D64.9 Anemia, unspecified; N32.81 Overactive bladder; G47.00 Insomnia, unspecified; Z86.73 Personal history of transient ischemic attack (TIA), and cerebral infarction without residual deficits; Z79.899 Other long term (current) drug therapy; Z91.018 Allergy to other foods; Z88.0 Allergy status to penicillin; Z88.5 Allergy status to narcotic agent; Z88.2 Allergy status to sulfonamides; Z91.040 Latex allergy status; Z91.013 Allergy to seafood; Z88.1 Allergy status to other antibiotic agents

== ENCOUNTER 2018-11-18 13:57 | Emergency (ER) | payer MEDICARE, OTHER ==
[~2018-11-18] VITALS: Ht 152.4 cm; Wt 47.7 kg
[~2018-11-18 13:57] MED LIST changes: -/DULO30CA OR; -ASPI1TAB PO; +ASPI81TA26 PO; +B121000T PO; +CALCCHW18 PO; +CYAN100049 PO; +CYMB1CAP5 OR; -DULO1CAP2 PO; +DULO1CAP5 PO; +DULO1CAP6 PO; +ESCI10TA2 PO; +MIRT15TA3 PO; +MOVE1TAB PO; -OMEP20CA3 PO; +OMEP20CA4 PO; -OXYB10TA PO; +OXYB10TA2 PO; +TRAZ1TAB10 PO; +VENL75CA47 PO; +VITA200015 PO; +VITA200038 PO; +[UNRECOGNIZED DRUG - OTHER] PO
[2018-11-18 15:32] LABS: HEMATOCRIT 31.9 % (36.0-47.0); HEMOGLOBIN 10.3 g/dl (12.0-15.5); MEAN CORPUSCULAR HEMOGLOBIN 28.1 pg (27.0-33.0); MEAN CORPUSCULAR HGB CONC 32.3 g/dl (32.0-36.5); MEAN CORPUSCULAR VOLUME 87.2 fl (80.0-96.0); PLATELET COUNT, AUTOMATED 196 10^3/uL (150-450); RED BLOOD COUNT 3.66 10^6/uL (4.00-5.40); WHITE BLOOD COUNT 5.8 10^3/uL (4.0-10.0)
[2018-11-18] MEDS ORDERED: LIPI10TA PO (15:36)
[2018-11-18 16:06] LABS: ACETAMINOPHEN LEVEL < 2.0 UG/ML (10.0-30.0); ALBUMIN 3.3 GM/DL (3.2-5.2); ALT/SGPT 18 U/L (12-78); BILIRUBIN,DIRECT 0.2 MG/DL (0.0-0.2); BILIRUBIN,TOTAL 0.5 MG/DL (0.2-1.0); BLOOD UREA NITROGEN 13 MG/DL (7-18); CALCIUM LEVEL 8.5 MG/DL (8.8-10.2); CARBON DIOXIDE LEVEL 31 MEQ/L (21-32); CHLORIDE LEVEL 105 MEQ/L (98-107); CREATININE FOR GFR 0.68 MG/DL (0.55-1.30); ETHYL ALCOHOL (ETHANOL) < 0.003 % (0.000-0.010); GLOMERULAR FILTRATION RATE > 60.0 (>32); GLUCOSE, FASTING 138 MG/DL (70-100); POTASSIUM SERUM 3.8 MEQ/L (3.5-5.1); SALICYLATE LEVEL < 1.7 MG/DL (5.0-30.0); SODIUM LEVEL 142 MEQ/L (136-145); TOTAL PROTEIN 6.5 GM/DL (6.4-8.2)
[2018-11-18 18:30] LABS: AMPHETAMINES LEVEL URINE NEGATIVE (NEGATIVE); BARBITURATES URINE NEGATIVE (NEGATIVE); BENZODIAZEPINES URINE NEGATIVE (NEGATIVE); CANNABINOIDS URINE NEGATIVE (NEGATIVE); COCAINE METABOLITE URINE NEGATIVE (NEGATIVE); METHADONE URINE NEGATIVE (NEGATIVE); OPIATES URINE NEGATIVE (NEGATIVE); PHENCYCLIDINE URINE NEGATIVE (NEGATIVE)
[2018-11-19] MEDS ORDERED: OMEPRAZOLE 20 MG CAP PO ONE (10:00)
[2018-11-19] MEDS ORDERED: ESCITALOPRAM OXALATE 10 MG TAB (LEXAPRO) PO ONE (10:00)
[2018-11-19] MEDS ORDERED: ATORVASTATIN 20 MG TAB PO ONE ×2 (10:00→10:45)
[2018-11-19] MEDS ORDERED: CIPROFLOXACIN 500 MG TAB PO ONE (12:45)
[2018-11-19 13:40] VITALS: BP 129/60
--- NOTE | 2018-11-19 20:41 | ECGEPIP ---
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
== END 2018-11-19 13:43 ==
LOC: M ED 13:57
DX: N39.0 Urinary tract infection, site not specified (principal); F32.89 Other specified depressive episodes; K21.9 Gastro-esophageal reflux disease without esophagitis; Z79.899 Other long term (current) drug therapy; Z88.0 Allergy status to penicillin; Z88.2 Allergy status to sulfonamides; Z88.5 Allergy status to narcotic agent; Z88.1 Allergy status to other antibiotic agents; Z91.013 Allergy to seafood; Z91.018 Allergy to other foods; Z91.040 Latex allergy status
CPT/HCPCS: 36415; 80048; 80076; 80307; 81001; 84443; 85027; 87086; 93005; 99284; G0480

== ENCOUNTER → 2019-12-20 | Outpatient (REF) | payer MEDICARE, OTHER ==
[~2019-12-20] MED LIST changes: +ACET-683 PO; +ACYC200C8 PO; +AMLO1TAB24 PO; +ASPI-546 PO; -ASPI1TAB15 PO; +BUPR150T5 PO; +FLUTISP NARES; +LEXA1TAB PO; +LIDO2GEL26 TOP; +LIPI10TA PO; +MOBI4TAB PO; +OMEP-218 PO; +OMEP1CAP73 PO; -OMEP20CA4 PO; -OXYB10TA2 PO; +OXYB10TA23 PO; +PATIENT COMMENT; +PREG50CA PO
[2019-12-20 17:28] LABS: BASO % 0.4 % (0.0-1.0); EOS # 0.1 10^3/uL (0.0-0.5); EOS % 1.1 % (0.0-3.0); HEMATOCRIT 33.3 % (36.0-47.0); HEMOGLOBIN 10.3 g/dl (12.0-15.5); LYMPH # 2.1 10^3/uL (1.5-5.0); LYMPH % 38.9 % (24.0-44.0); MEAN CORPUSCULAR HEMOGLOBIN 27.8 pg (27.0-33.0); MEAN CORPUSCULAR HGB CONC 30.9 g/dl (32.0-36.5); MEAN CORPUSCULAR VOLUME 89.8 fl (80.0-96.0); MONO # 0.4 10^3/uL (0.0-0.8); MONO % 7.4 % (0.0-5.0); NEUTROPHILS # 2.8 10^3/uL (1.5-8.5); PLATELET COUNT, AUTOMATED 225 10^3/uL (150-450); RED BLOOD COUNT 3.71 10^6/uL (4.00-5.40); WHITE BLOOD COUNT 5.4 10^3/uL (4.0-10.0)
[2019-12-20 17:39] LABS: ALBUMIN 3.7 GM/DL (3.2-5.2); ALT/SGPT 21 U/L (12-78); BILIRUBIN,TOTAL 0.4 MG/DL (0.2-1.0); BLOOD UREA NITROGEN 19 MG/DL (7-18); CALCIUM LEVEL 8.9 MG/DL (8.8-10.2); CARBON DIOXIDE LEVEL 30 MEQ/L (21-32); CHLORIDE LEVEL 106 MEQ/L (98-107); CHOLESTEROL LEVEL 148 MG/DL (<200); CREATININE FOR GFR 0.67 MG/DL (0.55-1.30); FREE T4 1.01 NG/DL (0.76-1.46); GLOMERULAR FILTRATION RATE > 60.0 (>32); GLUCOSE, FASTING 98 MG/DL (70-100); HDL CHOLESTEROL 55 MG/DL (>40); LDL CHOLESTEROL 76 MG/DL (<100); MAGNESIUM LEVEL 2.3 MG/DL (1.8-2.4); NON-HDL-C 93 MG/DL; RHEUMATOID FACTOR QUANT < 10.0 IU/ML (<15.0); SODIUM LEVEL 139 MEQ/L (136-145); TOTAL PROTEIN 7.1 GM/DL (6.4-8.2); TRIGLYCERIDES LEVEL 85 MG/DL (<150)
[2019-12-20 17:41] LABS: TOTAL 25(OH) VITAMIN D 26.5 NG/ML (30.0-100.0); VITAMIN B12 LEVEL 476 PG/ML (247-911)
[2019-12-20 18:12] LABS: ERYTHROCYTE SEDIMENTATION RATE 18 mm/hr (0-30)
[2019-12-20 18:37] LABS: HEMOGLOBIN A1c 5.9 %
[2019-12-21 12:47] LABS: APPEARANCE, URINE TURBID (CLEAR); BACTERIA, URINE AUTO NEGATIVE (NEGATIVE); BILIRUBIN, URINE AUTO NEGATIVE (NEGATIVE); BLOOD, URINE BLOOD NEGATIVE (NEGATIVE); COLOR, URINE AMBER (YELLOW); GLUCOSE, URINE (UA) AUTO NEGATIVE (NEGATIVE); KETONE, URINE AUTO NEGATIVE (NEGATIVE); LEUKOCYTE ESTERASE, URINE AUTO NEGATIVE (NEGATIVE); NITRITE, URINE AUTO NEGATIVE (NEGATIVE); PROTEIN, URINE AUTO NEGATIVE (NEGATIVE); RBC, URINE AUTO 0 /HPF (0-3); SPECIFIC GRAVITY URINE AUTO 1.018 (1.002-1.035); SQUAMOUS EPITHELIAL CELL UR AU 0 /HPF (0-6); UROBILINOGEN, URINE AUTO 0.2 mg/dL (0.0-2.0); WBC, URINE AUTO 1 /HPF (0-3)
[2019-12-22 18:41] LABS: FERRITIN 12 NG/ML (8-252); IRON (FE) 52 UG/DL (50-170)
[2019-12-23 02:07] LABS: ANA (HEP2) Negative (.); CYCLIC CITRULLINATED PEPTIDE 4 units (0-19); Lyme Disease IgG/IgM Antibodie <0.91 ISR (0.00-0.90); Lyme Disease IgM Ab Quantitati <0.80 index (0.00-0.79)
== END ==
LOC: M SFHCCLAY 16:06
PROVIDERS: ATTEND Physician Assistant
DX: R53.83 Other fatigue (principal); M19.90 Unspecified osteoarthritis, unspecified site; D64.9 Anemia, unspecified; Z79.899 Other long term (current) drug therapy

== ENCOUNTER 2020-01-03 21:16 | Inpatient (IN) | payer MEDICARE, OTHER ==
[~2020-01-03] VITALS: Ht 157.5 cm; Wt 42.7 kg
[~2020-01-03 21:16] MED LIST changes: -ACET-683 PO; -ACYC200C8 PO; -AMLO1TAB24 PO; -BUPR150T5 PO; -FLUTISP NARES; -LEXA1TAB PO; -LIDO2GEL26 TOP; -MOBI4TAB PO; -OMEP-218 PO; -PATIENT COMMENT; -PREG50CA PO
[2020-01-03] MEDS ORDERED: ONDANSETRON 4 MG ORAL DISINTEGRATING TAB PO ONE (22:00)
[2020-01-03] MEDS ORDERED: IBUPROFEN 600MG TAB PO ONE (22:00)
[2020-01-03] MEDS ORDERED: ACETAMINOPHEN 325 MG TAB PO ONE (22:00)
[2020-01-03] MEDS ORDERED: GABAPENTIN 300 MG CAP PO ONE (22:00)
[2020-01-03] MEDS ORDERED: ACYCLOVIR 200 MG CAPSULE PO ONE (22:00)
[2020-01-04] MEDS ORDERED: MOM 30ML SUSPENSION UDC PO PRN (02:15)
[2020-01-04] MEDS ORDERED: ACETAMINOPHEN TAB 650MG DOSE (2X325MG) PO PRN (02:15)
[2020-01-04] MEDS ORDERED: LEXA1TAB PO (02:18)
[2020-01-04] MEDS ORDERED: BUPR150T5 PO (02:18)
[2020-01-04] MEDS ORDERED: ATOR40TA75 PO (02:18)
[2020-01-04] MEDS ORDERED: MOBI4TAB PO (02:18)
[2020-01-04] MEDS ORDERED: OMEP-218 PO (02:18)
[2020-01-04] MEDS ORDERED: PATIENT COMMENT (02:19)
[2020-01-04 02:34] LABS: HEMATOCRIT 30.6 % (36.0-47.0); HEMOGLOBIN 9.9 g/dl (12.0-15.5); MEAN CORPUSCULAR HEMOGLOBIN 27.7 pg (27.0-33.0); MEAN CORPUSCULAR HGB CONC 32.4 g/dl (32.0-36.5); MEAN CORPUSCULAR VOLUME 85.7 fl (80.0-96.0); PLATELET COUNT, AUTOMATED 182 10^3/uL (150-450); RED BLOOD COUNT 3.57 10^6/uL (4.00-5.40); WHITE BLOOD COUNT 5.4 10^3/uL (4.0-10.0)
--- NOTE | 2020-01-04 02:50 | HPEPDOC ---
[facility] Medical History & Physical Date of Admission Jan 04, 2020 Date of Service: Jan 04, 2020 History and Physical CHIEF COMPLAINT: Rash on abdomen HISTORY OF PRESENT ILLNESS: 84-year-old female past medical history of GERD, depression who lives alone at home by herself comes in the hospital because of right abdominal rash. She was at [facility] 2 days ago where she was diagnosed with shingles and sent home. She says she is unable to take care of herself at home and has no family around and has been feeling very weak after getting the rash which prompted her to come seek medical help.. When the patient was seen the history is fairly limited because she was very sleepy and falling back asleep and asking me the lower my voice and let her sleep. She sees her rash started approximately 2 days ago and was more painful previously now less painful and less sensitive to touch. The rash feels itchy at times but she denies any headaches fevers or sensitivity to light but does admit to fatigue. PAST MEDICAL HISTORY: GERD, depression with multiple previous admissions for depression and one suicide attempt by overdose in 2018. Dyslipidemia PAST SURGICAL HISTORY: Tonsillectomy, appendectomy. SOCIAL HISTORY: From chart review patient is but lives from her lives in an assisted living community in [place]. She has daughters but she is not close with them anymore. 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 Tobacco use, alcohol use, and illicit drug use is unknown as patient was too sleepy to answer questions ALLERGIES: Please see below. REVIEW OF SYSTEMS: I was unable to obtain a complete review of systems because patient Falling asleep and was answering a lot of questions. She was able to tell me that she is not short of breath and denied any chest pains she also said her pain was mostly due to her arthritis and fairly minimal on her abdomen at the location of the shingles. HOME MEDICATIONS: Please see below. PHYSICAL EXAMINATION: Constitutional: Very sleepy but arousable and does reply briefly to my questions before falling asleep. ENT: Sclera are clear. Mucosa is moist. Respiratory: Lungs CTA bilaterally. No respiratory distress. No use of accessory muscles. Cardiovascular: RRR S1 and S2 are normal, no murmur Gastrointestinal: Abdomen is soft, non distended, BS present. Musculoskeletal: No edema. No joint deformities. Neurologic: No focal neurological deficit. She was able to hold her hands up on hold as well as follow commands and lift both her legs up in the air. Skin: Rash on the right side of the abdomen around the distribution of the T9 dermatome. Appearance of fluid-filled blisters with some crusted over. LABORATORY DATA: See below. IMAGING: None MICROBIOLOGY: Please see below. ASSESSMENT/PLAN 84-year-old female past medical history GERD, depression, HLD admitted for shingles and being unable to take care of herself at home. # Herpes zoster: Acyclovir 800 mg by mouth 5 times daily started within 72hrs of symptoms onset. IVFs. ID consult. # Depression: I will hold her home psych meds for now due to possible oversedat ion. Reevaluate resuming psych meds when patient is more awake. Previously Effexor was held also for oversedation # Disposition: Unclear at this time if patient will be able to go back to living by herself at home. PT/OT evaluation # DVT prophylaxis: Heparin A [facility]ouse[facility] Hospitalist Vital Signs Vital Signs Date Time Temp Pulse Resp B/P (MAP) Pulse Ox O2 Delivery O2 Flow Rate FiO2 01/04/20 02:16 74 19 98 01/04/20 02:15 135/63 (87) 01/03/20 21:23 98.7 Room Air Home Medications Scheduled Atorvastatin Calcium (Atorvastatin Calcium) 40 Mg Tablet, 40 MG PO QHS Bupropion Hcl (Bupropion HCl Sr) 150 Mg Tab.sr.12h, 150 MG PO DAILY Escitalopram Oxalate (Lexapro) 10 Mg Tablet, 10 MG PO DAILY Meloxicam (Mobic) 7.5 Mg Tablet, 7.5 MG PO DAILY Omeprazole (Omeprazole) 20 Mg Capsule.dr, 20 MG PO DAILY Miscellaneous Medications [Patient Comment] OBTAINED FROM EXTERNAL MED HISTORY Allergies Coded Allergies: Penicillins (Verified Allergy, Intermediate, HIVES, 11/18/18) FISH (Verified Allergy, Unknown, 11/18/18) Sulfa (Sulfonamide Antibiotics) (Verified Allergy, Unknown, 11/19/18) Tuna (Verified Allergy, Unknown, 11/19/18) cheese (Verified Allergy, Unknown, 11/19/18) sharp/aged codeine (Verified Allergy, Unknown, 11/19/18) latex (Verified Allergy, Unknown, 11/19/18) shellfish derived (Verified Allergy, Unknown, 11/19/18) tetracycline (Verified Allergy, Unknown, 11/19/18) A-FIB/CHADSVASC A-FIB History Current/History of A-Fib/PAF?: No YOUSEF,SHASHI Avendaño MD Jan 04, 2020 02:50
[2020-01-04 03:00] LABS: BLOOD UREA NITROGEN 17 MG/DL (7-18); CALCIUM LEVEL 8.7 MG/DL (8.8-10.2); CARBON DIOXIDE LEVEL 28 MEQ/L (21-32); CHLORIDE LEVEL 105 MEQ/L (98-107); CREATININE FOR GFR 0.68 MG/DL (0.55-1.30); GLOMERULAR FILTRATION RATE > 60.0 (>32); GLUCOSE, FASTING 108 MG/DL (70-100); POTASSIUM SERUM 3.5 MEQ/L (3.5-5.1); SODIUM LEVEL 138 MEQ/L (136-145)
[2020-01-04] MEDS: NS 1,000 ML IV SCH ×2 (03:15→20:41)
[2020-01-04 03:34] VITALS: BP 160/80
[2020-01-04] MEDS: ACYCLOVIR 200 MG CAPSULE PO SCH ×5 (05:47→20:43)
[2020-01-04 06:01] VITALS: BP 142/74
[2020-01-04] MEDS ORDERED: ESCITALOPRAM OXALATE 10 MG TAB (LEXAPRO) PO SCH (09:00)
[2020-01-04] MEDS ORDERED: buPROPion **SR TABLET** (ZYBAN) 150MG PO SCH (09:00)
[2020-01-04] MEDS: HEPARIN SOD (PORCINE) 5000UNITS/ML 1ML VIAL/SYRINGE SC SCH ×2 (09:00→20:42)
[2020-01-04] MEDS: OMEPRAZOLE 20 MG CAP PO SCH (09:01)
[2020-01-04] MEDS ORDERED: ACYC200C8 PO (09:16)
--- NOTE | 2020-01-04 11:22 | IPNPDOC ---
Date Seen The patient was seen on 01/04/20. Progress Note Addendum: 1. CODE STATUS Patient confirms DO NOT RESUSCITATE, DO NOT INTUBATE. 2. Placement Patient lives alone at home and would like to be placed either in assisted living or assisted if appropriate. If as is being consulted for help in management. 3. Pain from shingles For symptomatic relief. Patient will be given topical capsaicin and started on very low dose of Lyrica 25 mg twice a day, which is to be held if patient develops some mental status changes. VS, I&O, 24H, Fishbone Vital Signs/I&O Vital Signs Date Time Temp Pulse Resp B/P (MAP) Pulse Ox O2 Delivery O2 Flow Rate FiO2 01/04/20 06:01 97.7 82 16 142/74 (96) 98 Room Air I&O- Last 24 Hours up to 6 AM 01/04/20 06:00 Intake Total 0 ml Output Total 250 ml Balance -250 ml Laboratory Data 24H LABS Laboratory Tests 2 01/04/20 02:27: Nucleated Red Blood Cells % (auto) 0.0, Anion Gap 5L, Glomerular Filtration Rate > 60.0, Calcium Level 8.7L 01/04/20 05:35: Urine Color STRAW, Urine Appearance CLEAR, Urine pH 6.0, Urine Specific [place] 1.004, Urine Protein NEGATIVE, Urine Glucose (UA) NEGATIVE, Urine Ketones TRACEH, Urine Blood NEGATIVE, Urine Nitrite NEGATIVE, Urine Bilirubin NEGATIVE, Urine Urobilinogen 0.2, Urine Leukocyte Esterase NEGATIVE, Urine WBC (Auto) 0, Urine RBC (Auto) 1, Urine Hyaline Casts (Auto) 0, Urine Bacteria (Auto) NEGATIVE, Urine Squamous Epithelial Cells 0, Urine Transitional Epithelial Cells <1, Urine Sperm (Auto) CBC/BMP Laboratory Tests 01/04/20 02:27 KRISTA HARRIS MD Jan 04, 2020 11:22
[2020-01-04] MEDS: ACETAMINOPHEN 500 MG TAB PO SCH ×3 (12:03→20:44)
[2020-01-04] MEDS ORDERED: LIDOCAINE 2% JELLY 30ML TOP PRN (12:15)
[2020-01-04] MEDS ORDERED: CAPSAICIN 0.025% CR 60 GM TOP SCH (13:00)
[2020-01-04 14:00] VITALS: BP 136/79
[2020-01-04] MEDS: PREGABALIN 25 MG CAP (LYRICA) PO SCH ×2 (14:51→20:43)
[2020-01-04] MEDS: ATORVASTATIN 20 MG TAB PO SCH (20:43)
[2020-01-04 22:00] VITALS: BP 137/68
[2020-01-05] VITALS (7 sets, daily range): BP systolic 76–138; BP diastolic 16–74
[2020-01-05] MEDS: ACYCLOVIR 200 MG CAPSULE PO SCH ×5 (05:20→21:31)
[2020-01-05 07:00] LABS: HEMATOCRIT 30.5 % (36.0-47.0); HEMOGLOBIN 9.8 g/dl (12.0-15.5); MEAN CORPUSCULAR HEMOGLOBIN 28.4 pg (27.0-33.0); MEAN CORPUSCULAR HGB CONC 32.1 g/dl (32.0-36.5); MEAN CORPUSCULAR VOLUME 88.4 fl (80.0-96.0); PLATELET COUNT, AUTOMATED 174 10^3/uL (150-450); RED BLOOD COUNT 3.45 10^6/uL (4.00-5.40); WHITE BLOOD COUNT 4.9 10^3/uL (4.0-10.0)
[2020-01-05] MEDS: LIDOCAINE 2% JELLY 5ML TUBE TOP PRN (07:23)
[2020-01-05 07:54] LABS: BLOOD UREA NITROGEN 22 MG/DL (7-18); CALCIUM LEVEL 8.1 MG/DL (8.8-10.2); CARBON DIOXIDE LEVEL 25 MEQ/L (21-32); CHLORIDE LEVEL 112 MEQ/L (98-107); CREATININE FOR GFR 0.76 MG/DL (0.55-1.30); GLOMERULAR FILTRATION RATE > 60.0 (>32); GLUCOSE, FASTING 98 MG/DL (70-100); POTASSIUM SERUM 3.7 MEQ/L (3.5-5.1); SODIUM LEVEL 144 MEQ/L (136-145)
[2020-01-05] MEDS: OMEPRAZOLE 20 MG CAP PO SCH (07:56)
[2020-01-05] MEDS: HEPARIN SOD (PORCINE) 5000UNITS/ML 1ML VIAL/SYRINGE SC SCH (07:57)
[2020-01-05] MEDS: ACETAMINOPHEN 500 MG TAB PO SCH ×3 (07:57→21:32)
[2020-01-05] MEDS: PREGABALIN 25 MG CAP (LYRICA) PO SCH (07:57)
[2020-01-05] MEDS ORDERED: LORazepam 2 MG/ML VIAL IV STA (08:38)
[2020-01-05] MEDS ORDERED: MORPHINE 2 MG/ML 1ML VIAL (J2270) IV ONE (08:45)
[2020-01-05] MEDS ORDERED: FLUBLOK(EGG FREE)(QUAD)INFLUENZA VACC 0.5ML SYRINGE 18YRS & OLDER IM ONE (09:00)
[2020-01-05] MEDS ORDERED: KETOROLAC 30 MG/ML 1ML VIAL IV ONE (09:00)
--- NOTE | 2020-01-05 09:24 | IPNPDOC ---
Date Seen The patient was seen on 01/05/20. Progress Note Subjective: Patient was seen and examined at the bedside. Chart has been reviewed. She still complains of 10 out of 10 sharp pain on the right lower abdomen without any radiation, fever, chills, erythema has improved. Despite Lyrica, Tylenol. Patient has had no relief. Topical lidocaine has been provided. Still with no relief. Per pain management. Patient would benefit from increased dose of Lyrica to 50 mg twice a day up to 75 mg twice a day, which can be titrated after 5-7 days. Objective: physical exam vital signs please see below Generally awake, alert, oriented to herself, answering questions appropriately. No facial asymmetry. No pallor, able to speak in full sentences, moaning at the bedside HEENT:. Dry mucous membranes. No JVD, thyromegaly or cervical lymphadenopathy . Lungs: Clear to auscultation wheezing or rales . Heart: S1, S2, sinus rhythm. Abdomen: Soft, nontender, nondistended, positive bowel sounds 4 quadrants. Patient has erythematous vesicular rash across the mid abdomen. All the way to the right flank improved from yesterday, slightly raised, tender . Extremities no cyanosis, clubbing or pitting edema. Patient has ulnar deviation, bilateral hands Laboratory data please see below. Microbiology, please see below Assessment and plan 84-year-old who lives alone, presents to emergency room with acute onset of severe pain over 2 days. Seen at an outlying emergency room and signed out AGAINST MEDICAL ADVICE presents to [facility] for further evaluation and was diagnosed with shingles. Patient is requesting placement unable to care for self at home Shingles -Currently on valacyclovir, topical lidocaine Lyrica has been increased to 50 mg twice a day Anxiety -As needed, Xanax Disposition patient is refusing discharge, she is unable to care for self at home and she lives alone with no support system in [facility]. Has as been contacted in order to discuss options regarding assisted living versus [facility] placement. A RU has been consulted. Activity as tolerated. VS, I&O, 24H, Fishbone Vital Signs/I&O Vital Signs Date Time Temp Pulse Resp B/P (MAP) Pulse Ox O2 Delivery O2 Flow Rate FiO2 01/05/20 06:00 97.9 84 18 119/56 (77) 97 Room Air I&O- Last 24 Hours up to 6 AM 01/05/20 05:59 Intake Total 2665 ml Output Total 700 ml Balance 1965 ml Laboratory Data 24H LABS Laboratory Tests 2 01/05/20 06:52: Nucleated Red Blood Cells % (auto) 0.0, Anion Gap 7L, Glomerular Filtration Rate > 60.0, Calcium Level 8.1L CBC/BMP Laboratory Tests 01/05/20 06:52 KRISTA HARRIS MD Jan 05, 2020 09:24
[2020-01-05] MEDS ORDERED: NS 500 ML IV ONE (20:15)
[2020-01-05] MEDS ORDERED: PREGABALIN 50 MG CAP (LYRICA) PO SCH (21:00)
[2020-01-05] MEDS: ATORVASTATIN 20 MG TAB PO SCH (21:31)
[2020-01-05] MEDS ORDERED: NS 1,000 ML IV ONE (22:45)
[2020-01-06] VITALS (8 sets, daily range): BP systolic 100–122; BP diastolic 28–56
[2020-01-06] MEDS ORDERED: NS 500 ML IV ONE (01:00)
[2020-01-06] MEDS ORDERED: NS 1,000 ML IV ONE (04:45)
[2020-01-06 05:37] LABS: BASO % 0.1 % (0.0-1.0); EOS % 0.1 % (0.0-3.0); HEMATOCRIT 26.4 % (36.0-47.0); HEMOGLOBIN 8.2 g/dl (12.0-15.5); LYMPH # 0.6 10^3/uL (1.5-5.0); MEAN CORPUSCULAR HEMOGLOBIN 27.9 pg (27.0-33.0); MEAN CORPUSCULAR HGB CONC 31.1 g/dl (32.0-36.5); MEAN CORPUSCULAR VOLUME 89.8 fl (80.0-96.0); MONO # 1.2 10^3/uL (0.0-0.8); MONO % 9.3 % (0.0-5.0); NEUTROPHILS # 10.7 10^3/uL (1.5-8.5); NEUTROPHILS % 84.7 % (36.0-66.0); PLATELET COUNT, AUTOMATED 134 10^3/uL (150-450); RED BLOOD COUNT 2.94 10^6/uL (4.00-5.40); WHITE BLOOD COUNT 12.6 10^3/uL (4.0-10.0)
[2020-01-06] MEDS ORDERED: NS 1,000 ML IV SCH (05:45)
[2020-01-06 05:54] LABS: BLOOD UREA NITROGEN 23 MG/DL (7-18); CALCIUM LEVEL 7.3 MG/DL (8.8-10.2); CARBON DIOXIDE LEVEL 23 MEQ/L (21-32); CHLORIDE LEVEL 115 MEQ/L (98-107); CREATININE FOR GFR 0.74 MG/DL (0.55-1.30); GLOMERULAR FILTRATION RATE > 60.0 (>32); GLUCOSE, FASTING 97 MG/DL (70-100); POTASSIUM SERUM 3.2 MEQ/L (3.5-5.1); SODIUM LEVEL 144 MEQ/L (136-145)
[2020-01-06] MEDS: ACYCLOVIR 200 MG CAPSULE PO SCH ×5 (06:03→21:22)
--- NOTE | 2020-01-06 06:04 | IPNPDOC ---
Date Seen The patient was seen on 01/06/20. Progress Note No acute medical issues Awaiting placement Change to ALC[facility]NF status. [facility] Vital Signs/I&O Vital Signs Date Time Temp Pulse Resp B/P (MAP) Pulse Ox O2 Delivery O2 Flow Rate FiO2 01/06/20 04:30 78 100/28 (52) 01/06/20 01:28 98.1 20 97 Room Air I&O- Last 24 Hours up to 6 AM 01/06/20 06:00 Intake Total 970 ml Output Total 0 ml Balance 970 ml Laboratory Data 24H LABS Laboratory Tests 2 01/05/20 06:52: Nucleated Red Blood Cells % (auto) 0.0, Anion Gap 7L, Glomerular Filtration Rate > 60.0, Calcium Level 8.1L 01/05/20 19:58: Bedside Glucose (Misc Panel) 95 01/06/20 05:19: Nucleated Red Blood Cells % (auto) 0.0, Anion Gap 6L, Glomerular Filtration Rate > 60.0, Calcium Level 7.3L, Immature Granulocyte % (Auto) 0.8, Neutrophils (%) (Auto) 84.7H, Lymphocytes (%) (Auto) 5.0L, Monocytes (%) (Auto) 9.3H, Eosinophils (%) (Auto) 0.1, Basophils (%) (Auto) 0.1, Neutrophils # (Auto) 10.7H, Lymphocytes # (Auto) 0.6L, Monocytes # (Auto) 1.2H, Eosinophils # (Auto) 0.0, Basophils # (Auto) 0.0 CBC/BMP Laboratory Tests 01/05/20 06:52 01/05/20 23:09 01/06/20 05:19 Microbiology Microbiology 01/05/20 Campylobacter (PCR), Received Pending 01/05/20 Clostridium difficile Toxin A&B PCR, Received Pending 01/05/20 Plesiomonas shigelloides (PCR), Received Pending 01/05/20 Salmonella (PCR)(SKY), Received Pending 01/05/20 Vibrio Species (PCR), Received Pending 01/05/20 Vibrio Cholerae (PCR), Received Pending 01/05/20 Yersinia enterocolitica (PCR), Received Pending 01/05/20 Enteroaggregative E. coli (PCR), Received Pending 01/05/20 Enteropathogenic E. coli (PCR), Received Pending 01/05/20 Enterotoxigenic E. coli (PCR), Received Pending 01/05/20 E. coli Shiga-like Toxin (PCR), Received Pending 01/05/20 Escherichia coli 0157 (PCR), Received Pending 01/05/20 Enteroinvasive E. coli/Shigella PCR, Received Pending 01/05/20 Cryptosporidium (PCR), Received Pending 01/05/20 Cyclospora cayetanensis (PCR), Received Pending 01/05/20 Entamoeba histolytica (PCR), Received Pending 01/05/20 Giardia lamblia (PCR), Received Pending 01/05/20 Adenovirus Type F 40/41 (PCR), Received Pending 01/05/20 Astrovirus (PCR), Received Pending 01/05/20 Norovirus GI/GII (PCR), Received Pending 01/05/20 Rotavirus A (PCR), Received Pending 01/05/20 Sapovirus I/II/IV/V (PCR), Received Pending KRISTA HARRIS MD Jan 06, 2020 06:04
[2020-01-06] MEDS ORDERED: FLUBLOK(EGG FREE)(QUAD)INFLUENZA VACC 0.5ML SYRINGE 18YRS & OLDER IM ONE (09:00)
[2020-01-06] MEDS: OMEPRAZOLE 20 MG CAP PO SCH (10:06)
[2020-01-06] MEDS: ACETAMINOPHEN 500 MG TAB PO SCH ×3 (10:06→21:23)
[2020-01-06] MEDS: POTASSIUM CHLORIDE 10 MEQ SR TABLET PO SCH ×2 (12:59→21:23)
[2020-01-06] MEDS: LIDOCAINE 2% JELLY 5ML TUBE TOP PRN ×2 (14:48→22:16)
[2020-01-06] MEDS: ATORVASTATIN 20 MG TAB PO SCH (21:22)
[2020-01-07 03:20] VITALS: BP 180/80
[2020-01-07] MEDS ORDERED: diphenhydrAMINE 50MG/ML VIAL (J1200) IV ONE (03:30)
[2020-01-07] MEDS: LIDOCAINE 2% JELLY 5ML TUBE TOP PRN (03:39)
[2020-01-07] MEDS: ACYCLOVIR 200 MG CAPSULE PO SCH ×5 (05:41→21:36)
[2020-01-07 06:00] VITALS: BP 119/58
[2020-01-07] MEDS: OMEPRAZOLE 20 MG CAP PO SCH (08:54)
[2020-01-07] MEDS: ACETAMINOPHEN 500 MG TAB PO SCH ×3 (08:54→21:37)
[2020-01-07 14:00] VITALS: BP 142/60
[2020-01-07] MEDS: ATORVASTATIN 20 MG TAB PO SCH (21:36)
[2020-01-07 22:00] VITALS: BP 151/70
[2020-01-08] MEDS: ACYCLOVIR 200 MG CAPSULE PO SCH ×5 (05:02→21:25)
[2020-01-08 06:00] VITALS: BP 152/67
[2020-01-08] MEDS: OMEPRAZOLE 20 MG CAP PO SCH (08:41)
[2020-01-08] MEDS: ACETAMINOPHEN 500 MG TAB PO SCH ×3 (08:41→21:26)
[2020-01-08] MEDS ORDERED: FLUBLOK(EGG FREE)(QUAD)INFLUENZA VACC 0.5ML SYRINGE 18YRS & OLDER IM ONE (09:00)
[2020-01-08 14:00] VITALS: BP 125/63
[2020-01-08] MEDS: LIDOCAINE 2% JELLY 5ML TUBE TOP PRN (16:36)
[2020-01-08] MEDS: ATORVASTATIN 20 MG TAB PO SCH (21:25)
[2020-01-08 22:00] VITALS: BP 128/65
[2020-01-09] MEDS: ACYCLOVIR 200 MG CAPSULE PO SCH ×5 (05:15→20:37)
[2020-01-09 06:00] VITALS: BP 144/62
[2020-01-09] MEDS: OMEPRAZOLE 20 MG CAP PO SCH (08:35)
[2020-01-09] MEDS: ACETAMINOPHEN 500 MG TAB PO SCH ×3 (08:36→20:38)
[2020-01-09] MEDS: FLUTICASONE PROP 0.05% NASAL SPRAY 16 GM (FLONASE) NARES SCH (09:00)
[2020-01-09] MEDS ORDERED: CETIRIZINE (ZyrTEC) 10 MG TAB PO ONE (10:00)
[2020-01-09 14:00] VITALS: BP 139/67
[2020-01-09] MEDS: ATORVASTATIN 20 MG TAB PO SCH (20:37)
[2020-01-10] MEDS: LIDOCAINE 2% JELLY 5ML TUBE TOP PRN ×4 (02:46→22:41)
[2020-01-10] MEDS: ACYCLOVIR 200 MG CAPSULE PO SCH ×5 (05:40→22:39)
[2020-01-10 06:00] VITALS: BP 158/72
[2020-01-10] MEDS ORDERED: FLUBLOK(EGG FREE)(QUAD)INFLUENZA VACC 0.5ML SYRINGE 18YRS & OLDER IM ONE (09:00)
[2020-01-10] MEDS: CETIRIZINE (ZyrTEC) 10 MG TAB PO SCH (09:22)
[2020-01-10] MEDS: OMEPRAZOLE 20 MG CAP PO SCH (09:22)
[2020-01-10] MEDS: ACETAMINOPHEN 500 MG TAB PO SCH ×3 (09:22→22:40)
[2020-01-10] MEDS: FLUTICASONE PROP 0.05% NASAL SPRAY 16 GM (FLONASE) NARES SCH (09:24)
[2020-01-10] MEDS: ATORVASTATIN 20 MG TAB PO SCH (22:39)
[2020-01-11 06:00] VITALS: BP 119/72
[2020-01-11] MEDS: ACYCLOVIR 200 MG CAPSULE PO SCH (07:05)
[2020-01-11] MEDS: FLUTICASONE PROP 0.05% NASAL SPRAY 16 GM (FLONASE) NARES SCH (09:00)
[2020-01-11] MEDS: OMEPRAZOLE 20 MG CAP PO SCH (09:28)
[2020-01-11] MEDS: ACETAMINOPHEN 500 MG TAB PO SCH ×3 (09:30→21:14)
[2020-01-11] MEDS: CETIRIZINE (ZyrTEC) 10 MG TAB PO SCH (09:30)
[2020-01-11] MEDS: LIDOCAINE 2% JELLY 5ML TUBE TOP PRN ×3 (09:31→21:14)
[2020-01-11] MEDS: ATORVASTATIN 20 MG TAB PO SCH (21:12)
[2020-01-12 06:00] VITALS: BP 162/80
[2020-01-12] MEDS: FLUTICASONE PROP 0.05% NASAL SPRAY 16 GM (FLONASE) NARES SCH (09:00)
[2020-01-12] MEDS: ACETAMINOPHEN 500 MG TAB PO SCH ×3 (09:37→23:11)
[2020-01-12] MEDS: OMEPRAZOLE 20 MG CAP PO SCH (09:37)
[2020-01-12] MEDS: CETIRIZINE (ZyrTEC) 10 MG TAB PO SCH (09:38)
[2020-01-12] MEDS: LIDOCAINE 2% JELLY 5ML TUBE TOP PRN ×3 (09:38→23:11)
[2020-01-12] MEDS ORDERED: PREGABALIN 25 MG CAP (LYRICA) PO ONE (16:30)
[2020-01-12] MEDS ORDERED: KETOROLAC 30 MG/ML 1ML VIAL IV ONE (16:30)
[2020-01-12] MEDS: PREGABALIN 25 MG CAP (LYRICA) PO SCH (23:09)
[2020-01-12] MEDS: ATORVASTATIN 20 MG TAB PO SCH (23:09)
[2020-01-13 06:00] VITALS: BP_SYST 130; BP_DIAS 63; BP_DIAS 64
[2020-01-13 06:11] LABS: HEMATOCRIT 29.5 % (36.0-47.0); HEMOGLOBIN 9.3 g/dl (12.0-15.5); MEAN CORPUSCULAR HEMOGLOBIN 27.8 pg (27.0-33.0); MEAN CORPUSCULAR HGB CONC 31.5 g/dl (32.0-36.5); MEAN CORPUSCULAR VOLUME 88.1 fl (80.0-96.0); PLATELET COUNT, AUTOMATED 257 10^3/uL (150-450); RED BLOOD COUNT 3.35 10^6/uL (4.00-5.40); WHITE BLOOD COUNT 6.9 10^3/uL (4.0-10.0)
[2020-01-13 06:33] LABS: BLOOD UREA NITROGEN 34 MG/DL (7-18); CALCIUM LEVEL 8.5 MG/DL (8.8-10.2); CARBON DIOXIDE LEVEL 29 MEQ/L (21-32); CHLORIDE LEVEL 107 MEQ/L (98-107); CREATININE FOR GFR 0.85 MG/DL (0.55-1.30); GLOMERULAR FILTRATION RATE > 60.0 (>32); GLUCOSE, FASTING 91 MG/DL (70-100); POTASSIUM SERUM 3.4 MEQ/L (3.5-5.1); SODIUM LEVEL 143 MEQ/L (136-145)
[2020-01-13] MEDS ORDERED: POTASSIUM CHLORIDE 10 MEQ SR TABLET PO ONE (07:45)
[2020-01-13] MEDS: OMEPRAZOLE 20 MG CAP PO SCH (09:00)
[2020-01-13] MEDS: FLUTICASONE PROP 0.05% NASAL SPRAY 16 GM (FLONASE) NARES SCH (10:28)
[2020-01-13] MEDS: ACETAMINOPHEN 500 MG TAB PO SCH ×3 (10:28→20:32)
[2020-01-13] MEDS: PREGABALIN 25 MG CAP (LYRICA) PO SCH ×2 (10:29→20:31)
[2020-01-13] MEDS: CETIRIZINE (ZyrTEC) 10 MG TAB PO SCH (10:29)
[2020-01-13] MEDS: LIDOCAINE 2% JELLY 5ML TUBE TOP PRN ×2 (16:44→20:49)
[2020-01-13] MEDS: ATORVASTATIN 20 MG TAB PO SCH (20:31)
[2020-01-14 06:00] VITALS: BP 162/68
[2020-01-14] MEDS ORDERED: amLODIPine 5 MG TAB PO ONE (06:30)
[2020-01-14 07:41] LABS: HEMATOCRIT 30.1 % (36.0-47.0); HEMOGLOBIN 9.5 g/dl (12.0-15.5); MEAN CORPUSCULAR HEMOGLOBIN 27.9 pg (27.0-33.0); MEAN CORPUSCULAR HGB CONC 31.6 g/dl (32.0-36.5); MEAN CORPUSCULAR VOLUME 88.3 fl (80.0-96.0); PLATELET COUNT, AUTOMATED 276 10^3/uL (150-450); RED BLOOD COUNT 3.41 10^6/uL (4.00-5.40)
[2020-01-14] MEDS: NITROGLYCERIN 0.3 MG SUBL TAB SL PRN ×3 (07:47→08:06)
[2020-01-14 08:16] LABS: BLOOD UREA NITROGEN 38 MG/DL (7-18); CALCIUM LEVEL 8.7 MG/DL (8.8-10.2); CARBON DIOXIDE LEVEL 30 MEQ/L (21-32); CHLORIDE LEVEL 106 MEQ/L (98-107); CREATININE FOR GFR 0.66 MG/DL (0.55-1.30); GLOMERULAR FILTRATION RATE > 60.0 (>32); GLUCOSE, FASTING 98 MG/DL (70-100); POTASSIUM SERUM 4.2 MEQ/L (3.5-5.1); SODIUM LEVEL 140 MEQ/L (136-145); TROPONIN I < 0.02 NG/ML (< 0.10)
--- NOTE | 2020-01-14 08:33 | ECGEPIP ---
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 Somewhat low voltages with incomplete RIGHT BUNDLE BRANCH BLOCK and slow precordial R wave progression with persistent S wave V5 and V6; body h habitus versus pulmonary disease. Rule out prior septal infarction. No change from 11/18/18 Electronically Signed on 01-14-2020 8:32:48 EDT by Giuseppe Jerez
[2020-01-14] MEDS: FLUTICASONE PROP 0.05% NASAL SPRAY 16 GM (FLONASE) NARES SCH (09:00)
[2020-01-14] MEDS: OMEPRAZOLE 20 MG CAP PO SCH (09:31)
[2020-01-14] MEDS: LIDOCAINE 2% JELLY 5ML TUBE TOP PRN ×3 (09:31→21:44)
[2020-01-14] MEDS: CETIRIZINE (ZyrTEC) 10 MG TAB PO SCH (09:31)
[2020-01-14] MEDS: PREGABALIN 50 MG CAP (LYRICA) PO SCH ×2 (09:31→21:44)
[2020-01-14] MEDS: ACETAMINOPHEN 500 MG TAB PO SCH ×3 (09:32→21:45)
[2020-01-14 20:24] VITALS: BP 131/61
--- NOTE | 2020-01-14 20:36 | IPNPDOC ---
Subjective Date Seen The patient was seen on 01/14/20. Subjective Chief Complaint/HPI Patient is an 84 year old female here with acute pain secondary to shingles. This morning, she was complaining about pain from Shingles. It's across her right abdomen. This morning, she complained of sharp chest pain with radiation to right arm. The pain is worse across abdomen than chest. EKG did not suggest ACS. Troponin were negative times 2. Increased dose of Lyrica to help with the pain Objective Physical Examination General Exam: Positive: Alert Neck Exam: Positive: Supple Chest Exam: Positive: Clear to auscultation Heart Exam: Positive: Rate Normal, Regular Rhythm Abdomen Exam: Positive: Tenderness (Shingles on right abdomen radiating from the back) Extremity Exam: Negative: Cyanosis Skin Exam: Positive: Other skin issue (Shingles on right side radiating from back towards abdomen) Psych Exam: Positive: Anxiety Assessment /Plan Assessment Patient is an 84 year old female here with shingles. Increased Lyrica for pain control. Pending placement Plan/VTE VTE Prophylaxis Ordered?: Yes Plan 1. Shingles -Increased Lyrica -continue topical lidocaine and acetaminophen 2. GERD -Omeprazole 3. Allergies/Rhinorrhea -Cetirizine and Fluticasone 4. DVT ppx -TEDs Dispo: Pending placement VS, I&O, 24H, Fishbone Vital Signs/I&O Vital Signs Date Time Temp Pulse Resp B/P (MAP) Pulse Ox O2 Delivery O2 Flow Rate FiO2 01/14/20 08:06 95/55 01/14/20 07:07 77 01/14/20 06:00 97.2 20 96 Room Air I&O- Last 24 Hours up to 6 AM 01/14/20 05:59 Intake Total 1210 ml Output Total 0 ml Balance 1210 ml Laboratory Data 24H LABS Laboratory Tests 2 01/14/20 07:19: Nucleated Red Blood Cells % (auto) 0.0, Anion Gap 4L, Glomerular Filtration Rate > 60.0, Calcium Level 8.7L, Troponin I < 0.02 01/14/20 13:17: Troponin I < 0.02 CBC/BMP Laboratory Tests 01/14/20 07:19 Microbiology Microbiology 01/05/20 Campylobacter (PCR) - Final, Complete 01/05/20 Clostridium difficile Toxin A&B PCR - Final, Complete 01/05/20 Plesiomonas shigelloides (PCR) - Final, Complete 01/05/20 Salmonella (PCR)(SKY) - Final, Complete 01/05/20 Vibrio Species (PCR) - Final, Complete 01/05/20 Vibrio Cholerae (PCR) - Final, Complete 01/05/20 Yersinia enterocolitica (PCR) - Final, Complete 01/05/20 Enteroaggregative E. coli (PCR) - Final, Complete 01/05/20 Enteropathogenic E. coli (PCR) - Final, Complete 01/05/20 Enterotoxigenic E. coli (PCR) - Final, Complete 01/05/20 E. coli Shiga-like Toxin (PCR) - Final, Complete 01/05/20 Escherichia coli 0157 (PCR) - Final, Complete 01/05/20 Enteroinvasive E. coli/Shigella PCR - Final, Complete 01/05/20 Cryptosporidium (PCR) - Final, Complete 01/05/20 Cyclospora cayetanensis (PCR) - Final, Complete 01/05/20 Entamoeba histolytica (PCR) - Final, Complete 01/05/20 Giardia lamblia (PCR) - Final, Complete 01/05/20 Adenovirus Type F 40/41 (PCR) - Final, Complete 01/05/20 Astrovirus (PCR) - Final, Complete 01/05/20 Norovirus GI/GII (PCR) - Final, Complete 01/05/20 Rotavirus A (PCR) - Final, Complete 01/05/20 Sapovirus I/II/IV/V (PCR) - Final, Complete LUZMA CARR DO Jan 14, 2020 20:36
[2020-01-14] MEDS: ATORVASTATIN 20 MG TAB PO SCH (21:43)
[2020-01-15] MEDS: LIDOCAINE 2% JELLY 5ML TUBE TOP PRN ×3 (05:46→21:39)
[2020-01-15 06:00] VITALS: BP 161/83
[2020-01-15] MEDS: FLUTICASONE PROP 0.05% NASAL SPRAY 16 GM (FLONASE) NARES SCH (09:00)
[2020-01-15] MEDS: CETIRIZINE (ZyrTEC) 10 MG TAB PO SCH (10:26)
[2020-01-15] MEDS: PREGABALIN 50 MG CAP (LYRICA) PO SCH ×2 (10:27→21:39)
[2020-01-15] MEDS: ACETAMINOPHEN 500 MG TAB PO SCH ×3 (10:27→21:40)
[2020-01-15] MEDS: OMEPRAZOLE 20 MG CAP PO SCH (10:27)
[2020-01-15] MEDS: amLODIPine 5 MG TAB PO SCH (10:28)
[2020-01-15 13:43] VITALS: BP 147/67
[2020-01-15] MEDS: ATORVASTATIN 20 MG TAB PO SCH (21:39)
[2020-01-15 22:00] VITALS: BP 127/57
[2020-01-16] MEDS: LIDOCAINE 2% JELLY 5ML TUBE TOP PRN ×3 (05:24→21:54)
[2020-01-16 06:00] VITALS: BP 135/61
[2020-01-16] MEDS: FLUTICASONE PROP 0.05% NASAL SPRAY 16 GM (FLONASE) NARES SCH (09:00)
[2020-01-16] MEDS: OMEPRAZOLE 20 MG CAP PO SCH (10:03)
[2020-01-16] MEDS: ACETAMINOPHEN 500 MG TAB PO SCH ×3 (10:03→21:53)
[2020-01-16] MEDS: PREGABALIN 50 MG CAP (LYRICA) PO SCH ×2 (10:03→21:51)
[2020-01-16] MEDS: amLODIPine 5 MG TAB PO SCH (10:03)
[2020-01-16] MEDS: CETIRIZINE (ZyrTEC) 10 MG TAB PO SCH (10:04)
[2020-01-16 10:35] VITALS: BP 136/77
[2020-01-16] MEDS ORDERED: ONDANSETRON 4 MG ORAL DISINTEGRATING TAB PO PRN (11:00)
[2020-01-16] MEDS ORDERED: NS 500 ML IV ONE (11:30)
[2020-01-16 12:34] VITALS: BP 130/58
[2020-01-16] MEDS: ATORVASTATIN 20 MG TAB PO SCH (21:51)
[2020-01-17] MEDS: LIDOCAINE 2% JELLY 5ML TUBE TOP PRN ×3 (03:58→21:58)
[2020-01-17 06:00] VITALS: BP 123/59
[2020-01-17] MEDS: PREGABALIN 50 MG CAP (LYRICA) PO SCH ×2 (08:41→20:43)
[2020-01-17] MEDS: OMEPRAZOLE 20 MG CAP PO SCH (08:41)
[2020-01-17] MEDS: FLUTICASONE PROP 0.05% NASAL SPRAY 16 GM (FLONASE) NARES SCH (08:42)
[2020-01-17] MEDS: CETIRIZINE (ZyrTEC) 10 MG TAB PO SCH (08:42)
[2020-01-17] MEDS: ACETAMINOPHEN 500 MG TAB PO SCH ×3 (08:44→20:43)
[2020-01-17] MEDS: amLODIPine 5 MG TAB PO SCH (08:45)
[2020-01-17 14:00] VITALS: BP 132/60
[2020-01-17] MEDS: ATORVASTATIN 20 MG TAB PO SCH (20:43)
[2020-01-18 06:00] VITALS: BP 152/78
[2020-01-18] MEDS: PREGABALIN 50 MG CAP (LYRICA) PO SCH ×2 (08:46→20:01)
[2020-01-18] MEDS: CETIRIZINE (ZyrTEC) 10 MG TAB PO SCH (08:46)
[2020-01-18] MEDS: amLODIPine 5 MG TAB PO SCH (08:46)
[2020-01-18] MEDS: OMEPRAZOLE 20 MG CAP PO SCH (08:46)
[2020-01-18] MEDS: ACETAMINOPHEN 500 MG TAB PO SCH ×3 (08:46→20:01)
[2020-01-18] MEDS: FLUTICASONE PROP 0.05% NASAL SPRAY 16 GM (FLONASE) NARES SCH (08:49)
[2020-01-18] MEDS: LIDOCAINE 2% JELLY 5ML TUBE TOP PRN ×2 (08:51→21:04)
[2020-01-18] MEDS: ATORVASTATIN 20 MG TAB PO SCH (20:00)
[2020-01-19 06:00] VITALS: BP 139/63
[2020-01-19] MEDS: LIDOCAINE 2% JELLY 5ML TUBE TOP PRN ×4 (06:18→23:17)
[2020-01-19 08:46] VITALS: BP 140/65
[2020-01-19] MEDS: PREGABALIN 50 MG CAP (LYRICA) PO SCH ×2 (08:46→20:38)
[2020-01-19] MEDS: OMEPRAZOLE 20 MG CAP PO SCH (08:46)
[2020-01-19] MEDS: amLODIPine 5 MG TAB PO SCH (08:46)
[2020-01-19] MEDS: CETIRIZINE (ZyrTEC) 10 MG TAB PO SCH (08:46)
[2020-01-19] MEDS: ACETAMINOPHEN 500 MG TAB PO SCH ×3 (08:47→20:37)
[2020-01-19] MEDS: FLUTICASONE PROP 0.05% NASAL SPRAY 16 GM (FLONASE) NARES SCH (08:52)
[2020-01-19] MEDS: ATORVASTATIN 20 MG TAB PO SCH (20:37)
[2020-01-20 06:00] VITALS: BP 155/77
[2020-01-20] MEDS ORDERED: PREG50CA PO (08:41)
[2020-01-20] MEDS ORDERED: FLUTISP NARES (08:41)
[2020-01-20] MEDS ORDERED: CETI10TA PO (08:41)
[2020-01-20] MEDS ORDERED: ACET-683 PO (08:41)
[2020-01-20] MEDS ORDERED: LIDO2GEL26 TOP (08:41)
[2020-01-20] MEDS ORDERED: AMLO1TAB24 PO (08:41)
[2020-01-20] MEDS: OMEPRAZOLE 20 MG CAP PO SCH (10:31)
[2020-01-20] MEDS: amLODIPine 5 MG TAB PO SCH (10:32)
[2020-01-20] MEDS: CETIRIZINE (ZyrTEC) 10 MG TAB PO SCH (10:32)
[2020-01-20] MEDS: ACETAMINOPHEN 500 MG TAB PO SCH (10:32)
[2020-01-20] MEDS: PREGABALIN 50 MG CAP (LYRICA) PO SCH (10:33)
[2020-01-20] MEDS: FLUTICASONE PROP 0.05% NASAL SPRAY 16 GM (FLONASE) NARES SCH (10:33)
--- NOTE | 2020-01-20 11:17 | DS.PDOC ---
Discharge Summary General Date of Admission Jan 04, 2020 at 02:10 Date of Discharge 01/20/20 [facility] Discharge Summary DISCHARGE DIAGNOSES: Shingles uncontrolled HTN GERD depression with multiple previous admissions for depression one suicide attempt by overdose in 2018. Dyslipidemia DISCHARGE MEDICATIONS: SEE BELOW HISTORY OF PRESENTING ILLNESS: 84-year-old female past medical history of GERD, depression who lives alone seen at [facility] for right abdominal rash 2 days ago prior to [facility] presentation, diagnosed with shingles and sent home. At [facility], pt c/o intractable pain and requested jail placement. She was started on acyclovir, lidocaine patch, and lyrica, but became hypertensive due to pain. She was started on norvasc and changed to ALC status after 3 days. She is medically stable for snf placement. DISCHARGE PHYSICAL EXAMINATION: VITALS: SEE BELOW Constitutional: Very sleepy but arousable and does reply briefly to my questions before falling asleep. ENT: Sclera are clear. Mucosa is moist. Respiratory: Lungs CTA bilaterally. No respiratory distress. No use of accessory muscles. Cardiovascular: RRR S1 and S2 are normal, no murmur Gastrointestinal: Abdomen is soft, non distended, BS present. Musculoskeletal: No edema. No joint deformities. Neurologic: No focal neurological deficit. She was able to hold her hands up on hold as well as follow commands and lift both her legs up in the air. Skin: Rash on the right side of the abdomen around the distribution of the T9 dermatome. Appearance of fluid-filled blisters with some crusted over. LABORATORY DATA: See below. IMAGING: None MICROBIOLOGY: Please see below. TIME SPENT ON DISCHARGE: 30 MIN Vital Signs/I&Os Vital Signs Date Time Temp Pulse Resp B/P (MAP) Pulse Ox O2 Delivery O2 Flow Rate FiO2 01/20/20 06:00 98.5 86 20 155/77 (103) 99 Room Air I&O- Last 24 Hours up to 6 AM 01/20/20 06:00 Intake Total 760 ml Output Total 0 ml Balance 760 ml Laboratory Data Labs 24H Laboratory Tests 2 01/19/20 11:43: Coronavirus (COVID-19)(PCR) NEGATIVE Discharge Medications Scheduled Acetaminophen (Acetaminophen) 500 Mg Tablet, 1,000 MG PO TID Amlodipine Besylate (Amlodipine Besylate) 5 Mg Tablet, 5 MG PO DAILY Atorvastatin Calcium (Atorvastatin Calcium) 40 Mg Tablet, 40 MG PO QHS, (Reported) Bupropion Hcl (Bupropion HCl Sr) 150 Mg Tab.sr.12h, 150 MG PO DAILY, (Reported) Cetirizine HCl (Cetirizine HCl) 10 Mg Tablet, 5 MG PO QAM Escitalopram Oxalate (Lexapro) 10 Mg Tablet, 10 MG PO DAILY, (Reported) Fluticasone Propionate (Fluticasone Propionate) 16 Gm [place].susp, 2 SPRAY [place] DAILY Omeprazole (Omeprazole) 20 Mg Capsule.dr, 20 MG PO DAILY, (Reported) Pregabalin (Lyrica) 50 Mg Capsule, 50 MG PO BID Scheduled PRN lidocaine HCL (lidocaine HCL) 2 % Jelly.ml., 0 DOSE TOP QIDP PRN for PAIN Miscellaneous Medications [Patient Comment] , (Reported) OBTAINED FROM EXTERNAL MED HISTORY Allergies Coded Allergies: Penicillins (Verified Allergy, Intermediate, HIVES, 11/18/18) FISH (Verified Allergy, Unknown, 11/18/18) Sulfa (Sulfonamide Antibiotics) (Verified Allergy, Unknown, 11/19/18) Tuna (Verified Allergy, Unknown, 11/19/18) cheese (Verified Allergy, Unknown, 11/19/18) sharp/aged codeine (Verified Allergy, Unknown, 11/19/18) latex (Verified Allergy, Unknown, 11/19/18) shellfish derived (Verified Allergy, Unknown, 11/19/18) tetracycline (Verified Allergy, Unknown, 11/19/18) KRISTA HARRIS MD Jan 20, 2020 11:17
== END 2020-01-20 13:30 | DRG 596 ==
LOC: M ED 21:16 → M ED INP 21:17 → UNDOADMOB 21:17 → OBSVTOIN 01-04 02:10 → INTOOBSV 01-04 02:10 → M ED INP 01-04 02:10 → ENRESERV 01-04 02:59 → M MSPAV 01-04 03:45
PROVIDERS: ADMIT Family Medicine; ATTEND General Practice
DX: B02.9 Zoster without complications (principal); K21.9 Gastro-esophageal reflux disease without esophagitis; I10 Essential (primary) hypertension; E78.5 Hyperlipidemia, unspecified; F32.9 Major depressive disorder, single episode, unspecified; Z79.899 Other long term (current) drug therapy; Z88.0 Allergy status to penicillin; Z88.2 Allergy status to sulfonamides; Z91.018 Allergy to other foods; Z91.013 Allergy to seafood; Z88.5 Allergy status to narcotic agent; Z91.040 Latex allergy status